=== PATIENT | male | born 1940 | race Caucasian/White ===

== ENCOUNTER 2017-11-09 09:59 | Emergency (ER) | payer MEDICARE, BC ==
--- NOTE | 2017-11-09 10:40 | ERPHSYRPT ---
- History of Present Illness Time Seen by Provider: 11/09/17 10:33 Source: patient, family Exam Limitations: no limitations Patient Subjective Stated Complaint: pt here for pain to right rib area that radiates to right mid back off and on for a week now, no injury noted, Triage Nursing Assessment: alert, resp easy. moaning in pain. skin w/d/p, edema to lower legs Physician History: The patient is a 77-year-old male with his complaining of right sided chest pain that wraps around to his right back for several weeks. Over the last week the pain has become more severe. Yesterday and today the pain became worse than ever. The pain is at the lower rib cage on the right side in the front and wraps around to his back. It hurts when he coughs or sneezes. It hurts with deep breathing. It hurts with moving his trunk. He does not recall any trauma to the ribs. He denies cough. His past medical history is significant for CAD, hypertension, PE, diabetes, GERD, hypothyroidism, CABG, and high cholesterol. He has been taking Tylenol 4 times a day without relief. Timing/Duration: week(s) (several), intermittent, gradual onset, worse Severity: severe Modifying Factors: Improves With: nothing Associated Symptoms: denies symptoms Allergies/Adverse Reactions: nadolol [From Corgard] Allergy (Mild, Verified 11/09/17 10:18) hydromorphone HCl [From Dilaudid] Allergy (Verified 11/09/17 10:18) Home Medications: Amlodipine Besylate 10 mg [Norvasc 10 MG] 5 mg PO HS 08/15/15 [History] Carisoprodol [Soma] 250 mg PO DAILY 08/15/15 [History] Famotidine 20 mg [Pepcid 20 MG] 40 mg PO BID 08/15/15 [History] Glipizide 10 mg [Glucotrol 10 MG] 10 mg PO BID 08/15/15 [History] Hydralazine HCl 50 mg PO BID 08/15/15 [History] Insulin Degludec [Tresiba Flextouch U-100] 10 units SQ HS 08/15/15 [History] Levothyroxine Sodium 75 Mcg [Synthroid 75 Mcg] 75 mcg PO DAILY 08/15/15 [ History] Metoprolol Tartrate 25 mg [Lopressor 25MG Tab] 25 mg PO DAILY 08/15/15 [ History] Omeprazole [Prilosec] 40 mg PO DAILY 08/15/15 [History] Ranolazine 500 MG [Ranexa 500 MG] 500 mg PO DAILY 08/15/15 [History] Rivaroxaban [Xarelto] 20 mg PO DAILY 08/15/15 [History] Sennosides/Docusate Sodium [Senna-Docusate Sodium Tablet] 1 tab PO HS 08/15/15 [ History] Simvastatin 20 mg PO HS 08/15/15 [History] Sitagliptin Phosphate [Januvia] 50 mg PO BID 08/15/15 [History] Tamsulosin HCl [Flomax] 1 tab PO HS 08/15/15 [History] Valsartan [Diovan] 320 mg PO LUNCH 08/15/15 [History] Hx Tetanus, Diphtheria Vaccination/Date Given: Yes Hx Influenza Vaccination/Date Given: Yes Hx Pneumococcal Vaccination/Date Given: Yes Immunizations Up to Date: Yes - Review of Systems Constitutional: No Fever, No Chills Eyes: No Symptoms Ears, Nose, & Throat: No Symptoms Respiratory: No Cough, No Dyspnea Cardiac: Chest Pain (right rib pain), No Edema, No Syncope Abdominal/Gastrointestinal: No Abdominal Pain, No Nausea, No Vomiting, No Diarrhea Genitourinary Symptoms: No Dysuria Musculoskeletal: No Back Pain, No Neck Pain Skin: No Rash Neurological: No Dizziness, No Focal Weakness, No Sensory Changes Psychological: No Symptoms Endocrine: No Symptoms Hematologic/Lymphatic: No Symptoms Immunological/Allergic: No Symptoms All Other Systems: Reviewed and Negative - Past Medical History Pertinent Past Medical History: Yes Neurological History: No Pertinent History ENT History: No Pertinent History Cardiac History: Coronary Artery Disease, Hypertension Respiratory History: CHF, COPD Endocrine Medical History: Diabetes Type II Musculoskeletal History: Arthritis GI Medical History: No Pertinent History History: No Pertinent History Psycho-Social History: No Pertinent History Male Reproductive Disorders: Prostate Problems Other Medical History: pt states history of renal failure - Past Surgical History Past Surgical History: Yes Neuro Surgical History: No Pertinent History Cardiac: CABG Respiratory: No Pertinent History Gastrointestinal: Appendectomy, Cholecystectomy Genitourinary: No Pertinent History Musculoskeletal: Orthopedic Surgery Male Surgical History: No Pertinent History Other Surgical History: stents in past as stated per pt - Social History Smoking Status: Former smoker Exposure to second hand smoke: No Drug Use: none Patient Lives Alone: Yes - Nursing Vital Signs Nursing Vital Signs: Initial Vital Signs Temperature 97.8 F 11/09/17 10:00 Pulse Rate 69 11/09/17 10:00 Respiratory Rate 16 11/09/17 10:00 Blood Pressure 209/86 11/09/17 10:00 O2 Sat by Pulse Oximetry 96 11/09/17 10:00 Pain Scale Pain Intensity 9 - Physical Exam General Appearance: mild distress, obese Eye Exam: PERRL/EOMI, eyes nml inspection Ears, Nose, Throat Exam: normal ENT inspection, TMs normal, pharynx normal, moist mucous membranes Neck Exam: normal inspection, non-tender, supple, full range of motion Respiratory Exam: chest tenderness (tenderness to palpation of right anterior inferior, right lateral inferior, and posterior inferior ribs. No bruising. No skin lesions.) Cardiovascular Exam: regular rate/rhythm, normal heart sounds, normal peripheral pulses Gastrointestinal/Abdomen Exam: soft, normal bowel sounds, No tenderness, No mass Rectal Exam: not done Back Exam: normal inspection, normal range of motion, No CVA tenderness, No vertebral tenderness Extremity Exam: normal inspection, normal range of motion, pelvis stable Neurologic Exam: alert, oriented x 3, cooperative, normal mood/affect, nml cerebellar function, nml station & gait, sensation nml, No motor deficits Skin Exam: normal color, warm, dry, No rash Lymphatic Exam: No adenopathy SpO2 Interpretation: normal SpO2: 96 Oxygen Delivery: Room Air - Course EKG Interpreted by Me: RATE, Sinus Rhythm, NORMAL AXIS, NORMAL INTERVALS, NORMAL QRS, NORMAL ST-T - Radiology Exams Chest X-ray Interpretation: Interpreted by me, Negative, No Pneumothorax, Other ( granulomatous disease.) Right Ribs X-ray Interpretation: Interpreted by me, Negative, No Fracture, No Pneumothorax Ordered Tests: Active Orders 24 hr Category Date Time Status EKG-ER Only STAT Care 11/09/17 10:40 Active IV Insertion STAT Care 11/09/17 10:40 Active CHEST 2 VIEWS (PA AND LAT) Stat Exams 11/09/17 11:18 Taken RIBS UNILATERAL Stat Exams 11/09/17 10:42 Taken CBC W DIFF Stat Lab 11/09/17 10:30 Completed CMP Stat Lab 11/09/17 10:30 Completed Manual Differential NC Stat Lab 11/09/17 10:30 Completed TROPONIN Q3H Lab 11/09/17 10:30 Completed TROPONIN Q3H Lab 11/09/17 13:45 Ordered TROPONIN Q3H Lab 11/09/17 16:45 Ordered TROPONIN Q3H Lab 11/09/17 19:45 Ordered TROPONIN Q3H Lab 11/09/17 22:45 Ordered Medication Summary Discontinued Medications Generic Name Dose Route Start Last Admin Trade Name Dmitriq PRN Reason Stop Dose Admin Cyclobenzaprine HCl 10 mg 11/09/17 10:41 11/09/17 11:05 Cyclobenzaprine 10 Mg PO 11/09/17 10:42 10 mg STAT ONE Administration Cyclobenzaprine HCl Confirm 11/09/17 11:03 Cyclobenzaprine 10 Mg Administered 11/09/17 11:04 Dose 10 mg .ROUTE .STK-MED ONE Lab/Rad Data: Laboratory Result Diagrams 11/09/17 10:30 11/09/17 10:30 Laboratory Results 11/09/17 11/09/17 11/09/17 Range/Units 10:30 10:30 10:30 WBC 9.3 (4.0-10.5) K/mm3 RBC 4.76 (4.1-5.6) M/mm3 Hgb 14.7 (12.5-18.0) gm/dl Hct 44.8 (42-50) % MCV 94.1 (78-100) fl MCH 30.9 (26-32) pg MCHC 32.8 (32-36) g/dl RDW 14.3 H (11.5-14.0) % Plt Count 188 (150-450) K/mm3 MPV 11.7 H (6-9.5) fl Absolute Granulocytes 6.31 (1.4-6.9) Segmented Neutrophils 79 H (36.-66.) % Lymphocytes (Manual) 17 L (24-44) % Monocytes (Manual) 4 (0.0-12.0) % Platelet Estimate NORMAL (NORMAL) RBC Morphology NORMAL Sodium 142 (137-145) mmol/L Potassium 4.7 (3.5-5.1) mmol/L Chloride 103 (98-107) mmol/L Carbon Dioxide 30 (22-30) mmol/L Anion Gap 12.9 (5-15) MEQ/L BUN 25 H (9-20) mg/dL Creatinine 1.41 H (0.66-1.25) mg/dL Estimated GFR 51.9 ML/MIN Glucose 175 H (74-106) mg/dL Calcium 9.3 (8.4-10.2) mg/dL Total Bilirubin 0.30 (0.2-1.3) mg/dL AST 20 (17-59) U/L ALT 23 (0-50) U/L Alkaline Phosphatase 83 (38-126) U/L Troponin I < 0.012 (0.000-0.034) ng/mL Serum Total Protein 7.0 (6.3-8.2) g/dL Albumin 3.9 (3.5-5.0) g/dL - Progress Progress: unchanged Counseled pt/family regarding: lab results, diagnosis, rad results - Departure Time of Disposition: 12:06 Departure Disposition: Home Clinical Impression: Rib pain on right side Condition: Stable Critical Care Time: No Referrals: QASIM DE LA PAZ MD [Primary Care Provider] - Additional Instructions: You have pain along the your right ribs that is musculoskeletal. You were given Flexeril 10 mg in the ER. Continue with Flexeril 10 mg every 8 hours as needed. Follow-up with your primary medical doctor as needed. Prescriptions: Cyclobenzaprine HCl [Flexeril] 10 mg PO Q8H PRN PRN #10 tablet PRN Reason: Pain Hydrocodone/APAP 5/325 [Benezett 5/325 mg] 1 each PO Q4-6HPRN PRN #10 tablet MDD 6 PRN Reason: Pain
[2017-11-09] MEDS ORDERED: Cyclobenzaprine 10 MG PO ONE (10:41)
[2017-11-09 11:01] LABS: Granulocyte Absolute (ANC) 6.31 (1.4-6.9); Hematocrit 44.8 % (42-50); Hemoglobin 14.7 gm/dl (12.5-18.0); Mean Cell Volume 94.1 fl (78-100); Mean Corpuscular Hemoglobin 30.9 pg (26-32); Mean Corpuscular Hgb Concent. 32.8 g/dl (32-36); Mean Platelet Volume 11.7 fl (6-9.5); Platelet Count 188 K/mm3 (150-450); Red Blood Count 4.76 M/mm3 (4.1-5.6); Red Cell Distribution Width 14.3 % (11.5-14.0); White Blood Count 9.3 K/mm3 (4.0-10.5)
[2017-11-09] MEDS ORDERED: Cyclobenzaprine 10 MG ONE (11:03)
[2017-11-09 11:04] LABS: ALBUMIN 3.9 g/dL (3.5-5.0); ANION GAP 12.9 MEQ/L (5-15); BILIRUBIN,TOTAL 0.3 mg/dL (0.2-1.3); Calcium 9.3 mg/dL (8.4-10.2); Creatinine 1 1.41 mg/dL (0.66-1.25); Potassium 4.7 mmol/L (3.5-5.1)
[2017-11-09 11:39] LABS: Lymphocytes 17 % (24-44); Monocyte 4 % (0.0-12.0); Neutrophils 79 % (36.-66.); Platelet Estimate NORMAL (NORMAL); Total Cells Counted 100
[2017-11-09 12:33] VITALS: BP 154/67; PULSE 55; O2SAT 94
--- NOTE | 2017-11-09 19:59 | XRAY ---
Indication: Right upper rib pain. Comparison: August 15, 2015. PA/lateral chest again demonstrates scattered calcified granulomas. No focal infiltrate, consolidation, or large effusion. Heart is not enlarged. Bony thorax intact again with mild osteopenia, degenerative changes, and sternotomy wires. Impression: Stable nonacute chest with chronic features.
--- NOTE | 2017-11-09 20:04 | XRAY ---
Indication: Right upper rib pain 3 weeks. No known injury. Comparison: None 2 views of the right ribs demonstrates scattered pulmonary calcified granulomas, sternotomy wires, mild osteopenia, and mild bony degenerative changes. No other bony, articular, or soft tissue abnormalities.
== END 2017-11-09 12:32 | disposition home or self-care (01) ==
LOC: ED 09:59
DX: R07.81 Pleurodynia (principal); I50.9 Heart failure, unspecified; E11.9 Type 2 diabetes mellitus without complications; J44.9 Chronic obstructive pulmonary disease, unspecified; I25.810 Atherosclerosis of coronary artery bypass graft(s) without angina pectoris; M19.90 Unspecified osteoarthritis, unspecified site; Z79.01 Long term (current) use of anticoagulants; Z79.899 Other long term (current) drug therapy; I10 Essential (primary) hypertension
CPT/HCPCS: 36000; 36415; 71046; 71100; 80053; 84484; 85025; 93005; 93041; 99284; A9270-GY

== ENCOUNTER 2018-07-02 14:30 | Observation (INO) | payer MEDICARE, BC ==
[2018-07-02] MEDS ORDERED: NovoLOG Insulin SQ PRN (16:53)
[2018-07-02] MEDS ORDERED: SOMA 350 MG PO PRN (17:04)
[2018-07-02 17:08] LABS: Hematocrit 50.9 % (42-50); Mean Cell Volume 94.6 fl (78-100); Mean Corpuscular Hemoglobin 29.7 pg (26-32); Mean Corpuscular Hgb Concent. 31.4 g/dl (32-36); Mean Platelet Volume 11.8 fl (6-9.5); Platelet Count 203 K/mm3 (150-450); Red Blood Count 5.38 M/mm3 (4.1-5.6); Red Cell Distribution Width 14.9 % (11.5-14.0); White Blood Count 9.1 K/mm3 (4.0-10.5)
[2018-07-02 17:13] LABS: ALBUMIN 4.2 g/dL (3.5-5.0); ANION GAP 13.6 MEQ/L (5-15); BILIRUBIN,TOTAL 0.5 mg/dL (0.2-1.3); Calcium 9.8 mg/dL (8.4-10.2); Creatinine 1 1.42 mg/dL (0.66-1.25); Potassium 4.6 mmol/L (3.5-5.1); Total Protein 7.9 g/dL (6.3-8.2)
[2018-07-02] MEDS ORDERED: ULTRAM 50 MG PO PRN (17:15)
[2018-07-02] MEDS ORDERED: PROVENTIL 2.5 MG/3 ML NEB IH PRN (17:15)
[2018-07-02] MEDS: Glucotrol 5 MG PO SCH (17:42)
[2018-07-02] MEDS: BUMEX 1 MG IV SCH (17:42)
[2018-07-02] MEDS: Pepcid 20 MG PO SCH (21:21)
[2018-07-02] MEDS: COREG 12.5 MG PO SCH (21:22)
[2018-07-02] MEDS: Apresoline 25 MG TABLET PO SCH (21:22)
[2018-07-02] MEDS: Januvia 50 MG PO SCH (21:22)
[2018-07-02] MEDS: Senokot-S Tablet PO SCH (21:23)
[2018-07-02] MEDS ORDERED: ZOCOR 20MG PO SCH (22:00)
[2018-07-02] MEDS ORDERED: XARELTO 10 MG TABLET PO SCH (22:00)
[2018-07-02] MEDS ORDERED: Lantus Insulin SQ SCH (22:00)
[2018-07-02] MEDS ORDERED: NON-FORMULARY ITEM (Carvedilol [Coreg] 25 MG) PO SCH (22:00)
[2018-07-02] MEDS ORDERED: Flomax 0.4 MG PO SCH (22:00)
[2018-07-02] MEDS ORDERED: NON-FORMULARY ITEM (Atorvastatin Calcium [Lipitor] 20 MG) PO SCH (22:00)
[2018-07-03] MEDS: BUMEX 1 MG IV SCH (05:55)
[2018-07-03 06:16] LABS: Risk Ratio 3.1
--- NOTE | 2018-07-03 08:37 | XRAY ---
Indication: CHF. Comparison: November 09, 2017. PA/lateral chest again demonstrates scattered calcified granulomas bilaterally. No focal infiltrate, consolidation, or large effusion. Heart is not enlarged again with CABG surgery. Bony thorax intact again with mild osteopenia and degenerative changes. Impression: Stable nonacute chest with chronic features.
[2018-07-03] MEDS ORDERED: SYNTHROID 75 MCG PO SCH (10:00)
[2018-07-03] MEDS: Glucotrol 5 MG PO SCH (10:00)
[2018-07-03] MEDS: Apresoline 25 MG TABLET PO SCH (10:00)
[2018-07-03] MEDS: COREG 12.5 MG PO SCH (10:01)
[2018-07-03] MEDS: Januvia 50 MG PO SCH (10:01)
[2018-07-03] MEDS: Pepcid 20 MG PO SCH (10:01)
[2018-07-03] MEDS: Senokot-S Tablet PO SCH (10:02)
[2018-07-03 12:40] VITALS: BP 113/64; PULSE 118; O2SAT 92
--- NOTE | 2018-07-03 13:52 | PCM.SSS ---
History of Present Illness - Chief Complaint Chief Complaint: worsening shortness of breath for 1 week History of Present Illness: is a 78 year old male. see History and physical from office - Review of Systems Constitutional: No Fever, No Chills Eyes: No Symptoms Ears, Nose, & Throat: No Symptoms Respiratory: Orthopnea, Short Of Breath, Wheezing, No Cough Cardiac: No Chest Pain, No Edema, No Syncope Abdominal/Gastrointestinal: No Abdominal Pain, No Nausea, No Vomiting, No Diarrhea Genitourinary Symptoms: No Dysuria Musculoskeletal: No Back Pain, No Neck Pain Skin: No Rash Neurological: No Dizziness, No Focal Weakness, No Sensory Changes Psychological: No Symptoms Endocrine: No Symptoms Hematologic/Lymphatic: No Symptoms Immunological/Allergic: No Symptoms Medications & Allergies Home Medications: Home Medication List Famotidine 20 mg [Pepcid 20 MG] 40 mg PO BID 08/15/15 [History Confirmed 07/02/18] Glipizide 10 mg [Glucotrol 10 MG] 10 mg PO BID 08/15/15 [History Confirmed 07/02/18] Hydralazine HCl 50 mg PO BID 08/15/15 [History Confirmed 07/02/18] Levothyroxine Sodium 75 Mcg [Synthroid 75 Mcg] 75 mcg PO DAILY 08/15/15 [ History Confirmed 07/02/18] Rivaroxaban [Xarelto] 20 mg PO HS 08/15/15 [History Confirmed 07/02/18] Sennosides/Docusate Sodium [Senna-Docusate Sodium Tablet] 8.5 mg PO BID [History Confirmed 07/02/18] Sitagliptin Phosphate [Januvia] 50 mg PO BID 08/15/15 [History Confirmed ] Tamsulosin HCl [Flomax] 1 tab PO HS 08/15/15 [History Confirmed 07/02/18] Atorvastatin Calcium [Lipitor] 20 mg PO HS 07/02/18 [History Confirmed 07/02/18] Bumetanide [Bumex] 2 mg PO DAILY PRN PRN 07/02/18 [History Confirmed 07/02/18] Carisoprodol 350 mg PO TID PRN PRN 07/02/18 [History Confirmed 07/02/18] Carvedilol [Coreg] 25 mg PO BID 07/02/18 [History Confirmed 07/02/18] Insulin Glargine [Lantus Insulin] 55 unit SQ HS 07/02/18 [History Confirmed 07/02/18] Tramadol HCl [Ultram] 50 mg PO BID PRN 07/02/18 [History Confirmed 07/02/18] Allergies/Adverse Reactions: Allergies Allergy/AdvReac Type Severity Reaction Status Date / Time nadolol [From Corgard] Allergy Mild Verified 11/09/17 10:18 hydromorphone HCl Allergy Verified 11/09/17 10:18 [From Dilaudid] metoclopramide [From Reglan] AdvReac Verified 07/02/18 15:16 - Past Medical History Past Medical History: Yes Neurological History: No Pertinent History ENT History: No Pertinent History, Cataracts Cardiac History: Arrhythmia, Congestive Heart Failure, Coronary Artery Disease, Hypertension, Myocardial Infarction ([place]) Respiratory History: CHF, COPD Endocrine Medical History: Diabetes Type II Musculoskelatal History: Arthritis GI Medical History: No Pertinent History History: No Pertinent History Pyscho-Social History: No Pertinent History Male Reproductive Disorders: Prostate Problems Comment: pt states history of renal failure - Past Surgical History Past Surgical History: Yes Neuro Surgical History: No Pertinent History Cardiac History: CABG Respiratory Surgery: No Pertinent History GI Surgical History: Appendectomy, Cholecystectomy Genitourinary Surgical Hx: No Pertinent History Musculskeletal Surgical Hx: Orthopedic Surgery Male Surgical History: No Pertinent History Other Surgical History: stents in past as stated per pt, CABG - Social History Smoking Status: Former smoker Exposure to second hand smoke: No Alcohol: None Drug Use: none - Physical Exam Vital Signs: Vital Signs - 24 hr Temp Pulse Resp BP Pulse Ox 07/03/18 12:00 98.1 F 118 H 22 113/64 92 L 07/03/18 08:00 97.8 F 110 H 20 137/91 96 07/03/18 06:59 115 H 18 95 07/03/18 03:50 97.8 F 115 H 19 135/63 96 07/03/18 00:49 98.4 F 114 H 17 176/90 96 07/02/18 23:00 98.4 F 114 H 17 176/90 96 07/02/18 21:00 97 07/02/18 19:00 98.3 F 118 H 21 136/89 91 L 07/02/18 18:34 117 H 18 91 L 07/02/18 17:53 95 07/02/18 15:13 98.4 F 121 H 20 145/96 93 L 07/02/18 14:57 98.4 F 121 H 20 145/96 93 L Oxygen-Last 24 hours O2 Percentage 3 Liters = 32% O2 Percentage 3 Liters = 32% O2 Percentage 3 Liters = 32% O2 Percentage 3 Liters = 32% General Appearance: no apparent distress, alert Neurologic Exam: alert, oriented x 3, cooperative, normal mood/affect, nml cerebellar function, nml station & gait, sensation nml, No motor deficits Eye Exam: PERRL/EOMI, eyes nml inspection Ears, Nose, Throat Exam: normal ENT inspection, TMs normal, pharynx normal, moist mucous membranes Neck Exam: normal inspection, non-tender, supple, full range of motion Respiratory Exam: diminished breath sounds, crackles/rales, rhonchi, No respiratory distress Cardiovascular Exam: regular rate/rhythm, normal heart sounds, normal peripheral pulses Gastrointestinal/Abdomen Exam: soft, normal bowel sounds, No tenderness, No mass Back Exam: normal inspection, normal range of motion, No CVA tenderness, No vertebral tenderness Extremity Exam: normal inspection, normal range of motion, pelvis stable Skin Exam: normal color, warm, dry, No rash Lymphatic Exam: No adenopathy Results - Labs Lab/Micro Results: Accuchecks Date 07/03/18 Date 07/03/18 Date 07/02/18 Date 07/02/18 Time 11:30 Time 07:30 Time 21:00 Time 16:30 Accucheck Value: 152 Accucheck Value: 131 Accucheck Value: 174 Accucheck Value: 145 Lab Results-Last 24 Hours 07/02/18 07/02/18 07/02/18 Range/Units 15:40 15:40 15:40 WBC 9.1 (4.0-10.5) K/mm3 RBC 5.38 (4.1-5.6) M/mm3 Hgb 16.0 (12.5-18.0) gm/dl Hct 50.9 H (42-50) % MCV 94.6 (78-100) fl MCH 29.7 (26-32) pg MCHC 31.4 L (32-36) g/dl RDW 14.9 H (11.5-14.0) % Plt Count 203 (150-450) K/mm3 MPV 11.8 H (6-9.5) fl Sodium 142 (137-145) mmol/L Potassium 4.6 (3.5-5.1) mmol/L Chloride 101 (98-107) mmol/L Carbon Dioxide 32 H (22-30) mmol/L Anion Gap 13.6 (5-15) MEQ/L BUN 24 H (9-20) mg/dL Creatinine 1.42 H (0.66-1.25) mg/dL Estimated GFR 51.4 ML/MIN Glucose 159 H (74-106) mg/dL Hemoglobin A1c (4.5-6.0) % Calcium 9.8 (8.4-10.2) mg/dL Total Bilirubin 0.50 (0.2-1.3) mg/dL AST 23 (17-59) U/L ALT 25 (0-50) U/L Alkaline Phosphatase 77 (38-126) U/L Troponin I (0.000-0.034) ng/mL NT-Pro-B Natriuret Pep 1490 (0-1800) pg/mL Serum Total Protein 7.9 (6.3-8.2) g/dL Albumin 4.2 (3.5-5.0) g/dL Triglycerides (30-150) mg/dL Cholesterol (50-200) mg/dL LDL Cholesterol (30-100) mg/dL HDL Cholesterol (40-60) mg/dL Heart Disease Risk Ratio 07/02/18 07/02/18 07/03/18 Range/Units 15:40 16:00 05:12 WBC (4.0-10.5) K/mm3 RBC (4.1-5.6) M/mm3 Hgb (12.5-18.0) gm/dl Hct (42-50) % MCV (78-100) fl MCH (26-32) pg MCHC (32-36) g/dl RDW (11.5-14.0) % Plt Count (150-450) K/mm3 MPV (6-9.5) fl Sodium (137-145) mmol/L Potassium (3.5-5.1) mmol/L Chloride (98-107) mmol/L Carbon Dioxide (22-30) mmol/L Anion Gap (5-15) MEQ/L BUN (9-20) mg/dL Creatinine (0.66-1.25) mg/dL Estimated GFR ML/MIN Glucose (74-106) mg/dL Hemoglobin A1c 7.12 H (4.5-6.0) % Calcium (8.4-10.2) mg/dL Total Bilirubin (0.2-1.3) mg/dL AST (17-59) U/L ALT (0-50) U/L Alkaline Phosphatase (38-126) U/L Troponin I < 0.012 (0.000-0.034) ng/mL NT-Pro-B Natriuret Pep (0-1800) pg/mL Serum Total Protein (6.3-8.2) g/dL Albumin (3.5-5.0) g/dL Triglycerides 149 (30-150) mg/dL Cholesterol 125 (50-200) mg/dL LDL Cholesterol 67 (30-100) mg/dL HDL Cholesterol 40 (40-60) mg/dL Heart Disease Risk Ratio 3.1 Accuchecks Date 07/03/18 Date 07/03/18 Date 07/02/18 Date 07/02/18 Time 11:30 Time 07:30 Time 21:00 Time 16:30 Accucheck Value: 152 Accucheck Value: 131 Accucheck Value: 174 Accucheck Value: 145 - Radiology Impressions Radiology Exams & Impressions: Radiology Procedures Category Date Time Status CHEST 2 VIEWS (PA AND LAT) Routine Exams 07/02/18 17:15 Completed CHEST 2 VIEWS (PA AND LAT) Urgent Exams 07/03/18 17:00 Ordered ECHO W/2D AND DOPPLER [US] Routine Exams 07/03/18 07:00 Taken - Other Procedures and Tests Respiratory Therapy 07/02/18 17:53 Oxygen NASAL CANNULA 3 lpm Respiratory Therapy Assessment DAILY 07/02/18 20:43 Peak Expiratory Flow Rate ONCE Assessment/Plan (1) COPD (chronic obstructive pulmonary disease) with chronic bronchitis Current Visit: Yes Status: Acute Code(s): J44.9 - CHRONIC OBSTRUCTIVE PULMONARY DISEASE, UNSPECIFIED (2) Cor pulmonale (chronic) Current Visit: Yes Status: Acute Code(s): I27.81 - COR PULMONALE (CHRONIC) (3) CHF (congestive heart failure), NYHA class IV Current Visit: Yes Status: Acute Code(s): I50.9 - HEART FAILURE, UNSPECIFIED (4) CAD (coronary artery disease) Current Visit: No Status: Acute Qualifiers: Coronary Disease-Associated Artery/Lesion type: enterprise artery [place] vs. transplanted heart: enterprise heart Associated angina: with stable angina Qualified Code(s): I25.119 - Atherosclerotic heart disease of enterprise coronary artery with unspecified angina pectoris Code(s): I25.10 - ATHSCL HEART DISEASE OF [place] CORONARY ARTERY W/O [facility] Summary - Hospital Course Hospital Course: Last Vital Signs Temp 98.1 F 07/03/18 12:00 Pulse 118 H 07/03/18 12:00 Resp 22 07/03/18 12:00 BP 113/64 07/03/18 12:00 Pulse Ox 92 L 07/03/18 12:00 Allergies nadolol [From Corgard] Allergy (Mild, Verified 11/09/17 10:18) hydromorphone HCl [From Dilaudid] Allergy (Verified 11/09/17 10:18) metoclopramide [From Reglan] Adverse Reaction (Verified 07/02/18 15:16) Active Medications Albuterol Sulfate (Proventil 2.5 Mg/3 Ml Neb) 2.5 mg IH Q4H PRN PRN PRN Reason: SHORTNESS OF BREATH/WHEEZING Stop: 08/01/18 17:14 Last Admin: 07/02/18 18:33 Dose: 2.5 mg Bumetanide (Bumex 1 Mg) 1 mg IV Q12H FABIANA Stop: 08/01/18 16:59 Last Admin: 07/03/18 05:55 Dose: 1 mg Carisoprodol (Soma 350 Mg) 350 mg PO TID PRN PRN PRN Reason: PAIN Stop: 08/01/18 17:03 Carvedilol (Coreg 12.5 Mg) 25 mg PO BID FABIANA Stop: 08/01/18 21:59 Last Admin: 07/03/18 10:01 Dose: 25 mg Famotidine (Pepcid 20 Mg) 40 mg PO BID FABIANA Stop: 08/01/18 21:59 Last Admin: 07/03/18 10:01 Dose: 40 mg Glipizide (Glucotrol 5 Mg) 10 mg PO BIDWMEALS [facility] [place] Stop: 08/01/18 17:29 Last Admin: 07/03/18 10:00 Dose: 10 mg Hydralazine HCl (Apresoline 25 Mg Tablet) 50 mg PO BID FABIANA Stop: 08/01/18 21:59 Last Admin: 07/03/18 10:00 Dose: 50 mg Insulin Aspart (Novolog Insulin) 0 unit SQ UD PRN PRN Reason: HYPERGLYCEMIA Stop: 08/01/18 16:52 Insulin Glargine (Lantus Insulin) 55 unit SQ HS [facility] [place] Stop: 08/01/18 21:59 Last Admin: 07/02/18 21:23 Dose: 55 unit Levothyroxine Sodium (Synthroid 75 Mcg) 75 mcg PO DAILY [facility] [place] Stop: 08/02/18 09:59 Last Admin: 07/03/18 10:02 Dose: 75 mcg Rivaroxaban (Xarelto 10 Mg Tablet) 20 mg PO HS [facility] [place] Stop: 08/01/18 21:59 Last Admin: 07/02/18 21:21 Dose: 20 mg Senna/Docusate Sodium (Senokot-S Tablet) 1 udtab PO BID [facility] [place] Stop: 08/01/18 21:59 Last Admin: 07/03/18 10:02 Dose: 1 udtab Simvastatin (Zocor 20mg) 20 mg PO HS [facility] [place] Stop: 08/01/18 21:59 Last Admin: 07/02/18 21:22 Dose: 20 mg Sitagliptin Phosphate (Januvia 50 Mg) 50 mg PO BID [facility] [place] Stop: 08/01/18 21:59 Last Admin: 07/03/18 10:01 Dose: 50 mg Tamsulosin HCl (Flomax 0.4 Mg) 0.4 mg PO HS [facility] [place] Stop: 08/01/18 21:59 Last Admin: 07/02/18 21:20 Dose: 0.4 mg Tramadol HCl (Ultram 50 Mg) 50 mg PO BID PRN PRN PRN Reason: PAIN Stop: 08/01/18 17:14 Intake & Output 07/03/18 07/04/18 11:59 11:59 Intake Total 1080 320 Output Total 1500 350 Balance -420 -30 Weight 175.5 kg Orders 07/02/18 14:46 [address] in Observation ROUTINE 07/02/18 16:17 Cardio-Pulmonary Rehab .as ordered Manager Software Development/Discharge Plan 07/02/18 16:53 Insulin Aspart [NovoLOG Insulin] See Dose Instructions SQ UD PRN 07/02/18 16:55 Up With Assistance TOLERATED Implement CHF Pathway ROUTINE Telemetry Q6H Weight,Daily 0600 Nutritional Consult 07/02/18 17:00 Bumetanide 1 mg [Bumex 1 mg] 1 mg IV Q12H 07/02/18 17:04 Carisoprodol 350 mg [Soma 350 mg] 350 mg PO TID PRN PRN 07/02/18 17:05 ACCUCHECK [Accucheck] ACHS 07/02/18 17:15 Albuterol 2.5 mg/3 ml Neb [Proventil 2.5 mg/3 ml Neb] 2.5 mg IH Q4H PRN PRN Tramadol HCl 50 mg [Ultram 50 mg] 50 mg PO BID PRN PRN 07/02/18 17:30 Glipizide 5 mg [Glucotrol 5 MG] 10 mg PO BIDWMEALS 07/02/18 17:53 Oxygen NASAL CANNULA 3 lpm Respiratory Therapy Assessment DAILY 07/02/18 20:43 Peak Expiratory Flow Rate ONCE 07/02/18 22:00 Carvedilol 12.5 mg [Coreg 12.5 mg] 25 mg PO BID Famotidine 20 mg [Pepcid 20 MG] 40 mg PO BID HydrALAzine HCL 25 MG TAB [Apresoline 25 MG TABLET] 50 mg PO BID Insulin Glargine [Lantus Insulin] 55 unit SQ HS Rivaroxaban 10 mg Tablet [Xarelto 10 mg Tablet] 20 mg PO HS Senna/Docusate Sodium Tab [Senokot-S Tablet] 1 udtab PO BID Simvastatin 20Mg [Zocor 20Mg] 20 mg PO HS Sitagliptin Phosphate 50 MG [Januvia 50 MG] 50 mg PO BID Tamsulosin HCl 0.4 mg [Flomax 0.4 MG] 0.4 mg PO HS 07/02/18 Dinner Cardiac Diet 07/03/18 07:00 ECHO W/2D AND DOPPLER [US] Routine 07/03/18 07:06 Pulse Oximetry .continuos 07/03/18 10:00 Levothyroxine Sodium 75 Mcg [Synthroid 75 Mcg] 75 mcg PO DAILY 07/03/18 17:00 CHEST 2 VIEWS (PA AND LAT) Urgent Lab Tests 07/02/18 07/02/18 07/02/18 15:40 15:40 15:40 WBC 9.1 RBC 5.38 Hgb 16.0 Hct 50.9 H MCV 94.6 MCH 29.7 MCHC 31.4 L RDW 14.9 H Plt Count 203 MPV 11.8 H Sodium 142 Potassium 4.6 Chloride 101 Carbon Dioxide 32 H Anion Gap 13.6 BUN 24 H Creatinine 1.42 H Estimated GFR 51.4 Glucose 159 H Hemoglobin A1c Calcium 9.8 Total Bilirubin 0.50 AST 23 ALT 25 Alkaline Phosphatase 77 Troponin I NT-Pro-B Natriuret Pep 1490 Serum Total Protein 7.9 Albumin 4.2 Triglycerides Cholesterol LDL Cholesterol HDL Cholesterol Heart Disease Risk Ratio 07/02/18 07/02/18 07/03/18 15:40 16:00 05:12 WBC RBC Hgb Hct MCV MCH MCHC RDW Plt Count MPV Sodium Potassium Chloride Carbon Dioxide Anion Gap BUN Creatinine Estimated GFR Glucose Hemoglobin A1c 7.12 H Calcium Total Bilirubin AST ALT Alkaline Phosphatase Troponin I < 0.012 NT-Pro-B Natriuret Pep Serum Total Protein Albumin Triglycerides 149 Cholesterol 125 LDL Cholesterol 67 HDL Cholesterol 40 Heart Disease Risk Ratio 3.1 - Vitals & Intake/Output Vital Signs: Vital Signs Temperature 98.1 F 07/03/18 12:00 Pulse Rate 118 H 07/03/18 12:00 Respiratory Rate 22 07/03/18 12:00 Blood Pressure 113/64 07/03/18 12:00 O2 Sat by Pulse Oximetry 92 L 07/03/18 12:00 Oxygen-Last Documented O2 Percentage 3 Liters = 32% Intake & Output: Intake & Output 07/01/18 07/02/18 07/03/18 03/16/19 11:59 11:59 11:59 11:59 Intake Total 1080 320 Output Total 1500 350 Balance -420 -30 Weight 175.5 kg - Lab Result Diagrams: 07/02/18 15:40 07/02/18 15:40 Lab Results-Last 24 Hrs: Accuchecks Date 07/03/18 Date 07/03/18 Date 07/02/18 Date 07/02/18 Time 11:30 Time 07:30 Time 21:00 Time 16:30 Accucheck Value: 152 Accucheck Value: 131 Accucheck Value: 174 Accucheck Value: 145 Lab Results-Last 24 Hours 07/02/18 07/02/18 07/02/18 Range/Units 15:40 15:40 15:40 WBC 9.1 (4.0-10.5) K/mm3 RBC 5.38 (4.1-5.6) M/mm3 Hgb 16.0 (12.5-18.0) gm/dl Hct 50.9 H (42-50) % MCV 94.6 (78-100) fl MCH 29.7 (26-32) pg MCHC 31.4 L (32-36) g/dl RDW 14.9 H (11.5-14.0) % Plt Count 203 (150-450) K/mm3 MPV 11.8 H (6-9.5) fl Sodium 142 (137-145) mmol/L Potassium 4.6 (3.5-5.1) mmol/L Chloride 101 (98-107) mmol/L Carbon Dioxide 32 H (22-30) mmol/L Anion Gap 13.6 (5-15) MEQ/L BUN 24 H (9-20) mg/dL Creatinine 1.42 H (0.66-1.25) mg/dL Estimated GFR 51.4 ML/MIN Glucose 159 H (74-106) mg/dL Hemoglobin A1c (4.5-6.0) % Calcium 9.8 (8.4-10.2) mg/dL Total Bilirubin 0.50 (0.2-1.3) mg/dL AST 23 (17-59) U/L ALT 25 (0-50) U/L Alkaline Phosphatase 77 (38-126) U/L Troponin I (0.000-0.034) ng/mL NT-Pro-B Natriuret Pep 1490 (0-1800) pg/mL Serum Total Protein 7.9 (6.3-8.2) g/dL Albumin 4.2 (3.5-5.0) g/dL Triglycerides (30-150) mg/dL Cholesterol (50-200) mg/dL LDL Cholesterol (30-100) mg/dL HDL Cholesterol (40-60) mg/dL Heart Disease Risk Ratio 07/02/18 07/02/18 07/03/18 Range/Units 15:40 16:00 05:12 WBC (4.0-10.5) K/mm3 RBC (4.1-5.6) M/mm3 Hgb (12.5-18.0) gm/dl Hct (42-50) % MCV (78-100) fl MCH (26-32) pg MCHC (32-36) g/dl RDW (11.5-14.0) % Plt Count (150-450) K/mm3 MPV (6-9.5) fl Sodium (137-145) mmol/L Potassium (3.5-5.1) mmol/L Chloride (98-107) mmol/L Carbon Dioxide (22-30) mmol/L Anion Gap (5-15) MEQ/L BUN (9-20) mg/dL Creatinine (0.66-1.25) mg/dL Estimated GFR ML/MIN Glucose (74-106) mg/dL Hemoglobin A1c 7.12 H (4.5-6.0) % Calcium (8.4-10.2) mg/dL Total Bilirubin (0.2-1.3) mg/dL AST (17-59) U/L ALT (0-50) U/L Alkaline Phosphatase (38-126) U/L Troponin I < 0.012 (0.000-0.034) ng/mL NT-Pro-B Natriuret Pep (0-1800) pg/mL Serum Total Protein (6.3-8.2) g/dL Albumin (3.5-5.0) g/dL Triglycerides 149 (30-150) mg/dL Cholesterol 125 (50-200) mg/dL LDL Cholesterol 67 (30-100) mg/dL HDL Cholesterol 40 (40-60) mg/dL Heart Disease Risk Ratio 3.1 Micro Results-Entire Visit: Accuchecks Date 07/03/18 Date 07/03/18 Date 07/02/18 Date 07/02/18 Time 11:30 Time 07:30 Time 21:00 Time 16:30 Accucheck Value: 152 Accucheck Value: 131 Accucheck Value: 174 Accucheck Value: 145 - Radiology Exams Ordered Rad Exams-Entire Visit: Radiology Procedures Category Date Time Status CHEST 2 VIEWS (PA AND LAT) Routine Exams 07/02/18 17:15 Completed CHEST 2 VIEWS (PA AND LAT) Urgent Exams 07/03/18 17:00 Ordered ECHO W/2D AND DOPPLER [US] Routine Exams 07/03/18 07:00 Taken - Procedures and Test Procedures and Tests throughout Hospitalization: Therapy Orders & Screens 07/02/18 16:22 RT Screen per Nursing Assess ONCE Comment: Protocol Order Physician Instructions: Greater than 3 points order RT Admission Screen Reason For Exam: Triggered on Admission Diagnosis: SOB Diagnosis: SOB Pneumonia: No Home O2: Yes Asthma: No CHF: Yes Home CPAP/BIPAP: No Home Nebs/MDI: No Total Points: 8 07/02/18 17:05 EKG ROUTINE Comment: Diagnosis: SOB 07/02/18 17:53 Oxygen NASAL CANNULA 3 lpm Comment: Diagnosis: SOB,chf Respiratory Therapy Assessment DAILY Comment: Diagnosis: SOB,chf 07/02/18 20:43 Peak Expiratory Flow Rate ONCE Comment: Reason For Exam: Diagnosis: SOB,chf 07/03/18 10:47 Qualify for Home Oxygen TODAY Comment: SEE IF QUALIFIES FOR OXYGEN 11/11, HAS NOC ONLY NOW Diagnosis: SOB,chf - Discharge Discharge Date: 07/03/18 Disposition: Home, Self-Care Condition: Stable Prescriptions: Continue Sennosides/Docusate Sodium [Senna-Docusate Sodium Tablet] 8.5 mg PO BID Sitagliptin Phosphate [Januvia] 50 mg PO BID Levothyroxine Sodium 75 Mcg [Synthroid 75 Mcg] 75 mcg PO DAILY Glipizide 10 mg [Glucotrol 10 MG] 10 mg PO BID Famotidine 20 mg [Pepcid 20 MG] 40 mg PO BID Tamsulosin HCl [Flomax] 1 tab PO HS Rivaroxaban [Xarelto] 20 mg PO HS Hydralazine HCl 50 mg PO BID Tramadol HCl [Ultram] 50 mg PO BID PRN Carisoprodol 350 mg PO TID PRN PRN PRN Reason: Pain Insulin Glargine [Lantus Insulin] 55 unit SQ HS Carvedilol [Coreg] 25 mg PO BID Atorvastatin Calcium [Lipitor] 20 mg PO HS Bumetanide [Bumex] 2 mg PO DAILY PRN PRN PRN Reason: fluid retention Follow up with: QASIM DE LA PAZ MD [Primary Care Provider] - 1 Week
--- NOTE | 2018-07-06 15:15 | ECHO ---
Transthoracic echocardiographic examination and color Doppler was done on 07/03/2018. INDICATION: Congestive heart failure. IMPRESSION: 1) MODERATE TO SEVERE LEFT VENTRICLE HYPOKINESIA. EJECTION FRACTION 30%. 2) TRACE TRICUSPID REGURGITATION. RIGHT VENTRICULAR SYSTOLIC PRESSURE OF 31 MM OF MERCURY. 3) LEFT ATRIAL ENLARGEMENT. 4) LEFT VENTRICULAR HYPERTROPHY. 5) SCLEROTIC AORTIC VALVE. The left ventricle was not well visualized but this demonstrated moderate to severe left ventricular hypokinesia, ejection fraction around 30%. There is mild left ventricular hypertrophy. The mitral valve is seen and this opens adequately. No significant mitral regurgitation is seen. Left atrium is enlarged. The aortic valve is sclerotic. There is no significant gradient across the aortic valve. The right side chambers are normal. There is trace tricuspid regurgitation. The right ventricular systolic pressure of 31 mm of Mercury.
== END 2018-07-03 15:43 | disposition home or self-care (01) ==
LOC: MED SURG 14:46
PROVIDERS: ADMIT General Practice; ATTEND General Practice
DX: J44.9 Chronic obstructive pulmonary disease, unspecified (principal); I50.43 Acute on chronic combined systolic (congestive) and diastolic (congestive) heart failure; E11.65 Type 2 diabetes mellitus with hyperglycemia; I10 Essential (primary) hypertension; E03.9 Hypothyroidism, unspecified; I48.2 Chronic atrial fibrillation; I27.81 Cor pulmonale (chronic); I25.10 Atherosclerotic heart disease of native coronary artery without angina pectoris; Z79.4 Long term (current) use of insulin; Z79.899 Other long term (current) drug therapy; Z95.1 Presence of aortocoronary bypass graft
CPT/HCPCS: 36415; 71046; 80053; 80061; 82962; 83036; 83721; 83880; 84484; 85027; 93005; 93268; 93306; 94150; 94640; 94762; J7609; A9270-GY; G0378

== ENCOUNTER 2018-08-30 22:11 | Inpatient (IN) | payer MEDICARE, BC ==
[2018-08-30] MEDS ORDERED: solu-MEDROL 125 MG IV ONE (22:19)
[2018-08-30] MEDS ORDERED: PROVENTIL 2.5 MG/3 ML NEB IH ONE ×2 (22:19)
--- NOTE | 2018-08-30 22:23 | ERPHSYRPT ---
- History of Present Illness Time Seen by Provider: 08/30/18 22:19 Source: patient Exam Limitations: no limitations Physician History: 78-year-old white male with history of coronary artery disease, high blood pressure, COPD, congestive heart failure, diabetes type 2, renal failure Patient arrives with complaint of shortness of breath cough nonproductive symptoms for 7 days denies any chest pain he does state he has some chronic edema in the right lower extremity. Patient was noted by medics to be markedly short of breath patient with bilateral we is bilateral rhonchi patient was given DuoNeb treatment prior to arrival she arrives to with wheezing and shortness of breath. Patient denies chest pain however he does state that he has pain in his upper abdomen with taking a deep breath Past medical history includes. Hot coronary artery disease, high blood pressure , COPD, congestive heart failure, diabetes type 2, prostate problems, renal failure Past surgical history includes CABG, cholecystectomy, orthopedic surgery, cardiac stents Timing/Duration: day(s) (5 days) Activities at Onset: none Severity of Dyspnea-Max: moderate Severity of Dyspnea-Current: moderate Possible Cause: frequent episodes Associated Symptoms: constant, cough, edema, wheezing, ankle swelling, heaviness , No intermittent, No anxiety, No chest pain/discomfort, No fever, No insomnia, No loss of appetite, No lightheadedness, No weakness, No chills, No hemoptysis, No calf pain, No dizziness, No heart racing, No lightheadedness, No leg swelling , No muscle spasms feet, No muscle spasms hands, No painful breathing, No productive cough, No sweating, No tightness, No tingling face International travel in last 2 weeks: No Allergies/Adverse Reactions: nadolol [From Corgard] Allergy (Mild, Verified 11/09/17 10:18) hydromorphone HCl [From Dilaudid] Allergy (Verified 11/09/17 10:18) metoclopramide [From Reglan] Adverse Reaction (Verified 07/02/18 15:16) Home Medications: Famotidine 20 mg [Pepcid 20 MG] 40 mg PO BID 08/15/15 [History] Glipizide 10 mg [Glucotrol 10 MG] 10 mg PO BID 08/15/15 [History] Hydralazine HCl 50 mg PO BID 08/15/15 [History] Levothyroxine Sodium 75 Mcg [Synthroid 75 Mcg] 75 mcg PO DAILY 08/15/15 [ History] Rivaroxaban [Xarelto] 20 mg PO HS 08/15/15 [History] Sennosides/Docusate Sodium [Senna-Docusate Sodium Tablet] 8.5 mg PO BID [History] Sitagliptin Phosphate [Januvia] 50 mg PO BID 08/15/15 [History] Tamsulosin HCl [Flomax] 1 tab PO HS 08/15/15 [History] Atorvastatin Calcium [Lipitor] 20 mg PO HS 07/02/18 [History] Carisoprodol 350 mg PO TID PRN PRN 07/02/18 [History] Carvedilol [Coreg] 25 mg PO BID 07/02/18 [History] Insulin Glargine [Lantus Insulin] 55 unit SQ HS 07/02/18 [History] Tramadol HCl [Ultram] 50 mg PO BID PRN 07/02/18 [History] Hx Tetanus, Diphtheria Vaccination/Date Given: Yes Hx Influenza Vaccination/Date Given: Yes Hx Pneumococcal Vaccination/Date Given: Yes - Review of Systems Constitutional: No Fever, No Chills Eyes: No Symptoms Ears, Nose, & Throat: No Symptoms Respiratory: Cough, Dyspnea, Wheezing Cardiac: Edema, No Chest Pain, No Syncope Abdominal/Gastrointestinal: No Abdominal Pain, No Nausea, No Vomiting, No Diarrhea Genitourinary Symptoms: No Dysuria Musculoskeletal: No Back Pain, No Neck Pain Skin: No Rash Neurological: No Dizziness, No Focal Weakness, No Sensory Changes Psychological: No Symptoms Endocrine: No Symptoms All Other Systems: Reviewed and Negative - Past Medical History Pertinent Past Medical History: Yes Neurological History: No Pertinent History ENT History: No Pertinent History, Cataracts Cardiac History: Arrhythmia, Congestive Heart Failure, Coronary Artery Disease, Hypertension, Myocardial Infarction ([place]) Respiratory History: CHF, COPD Endocrine Medical History: Diabetes Type II Musculoskeletal History: Arthritis GI Medical History: No Pertinent History History: No Pertinent History Psycho-Social History: No Pertinent History Male Reproductive Disorders: Prostate Problems Other Medical History: pt states history of renal failure - Past Surgical History Past Surgical History: Yes Neuro Surgical History: No Pertinent History Cardiac: CABG Respiratory: No Pertinent History Gastrointestinal: Appendectomy, Cholecystectomy Genitourinary: No Pertinent History Musculoskeletal: Orthopedic Surgery Male Surgical History: No Pertinent History Other Surgical History: stents in past as stated per pt, CABG - Social History Smoking Status: Former smoker Exposure to second hand smoke: No Drug Use: none Patient Lives Alone: Yes - Nursing Vital Signs Nursing Vital Signs: Initial Vital Signs Temperature 98.2 F 08/30/18 22:12 Pulse Rate 120 H 08/30/18 22:12 Respiratory Rate 18 08/30/18 22:12 Blood Pressure 165/95 08/30/18 22:12 O2 Sat by Pulse Oximetry 97 08/30/18 22:12 Pain Scale Pain Intensity 0 - Physical Exam General Appearance: moderate distress, alert (and an in and and an in and in) Eye Exam: PERRL/EOMI Ears, Nose, Throat Exam: hearing grossly normal, normal ENT inspection, normal pharynx, No abnormal TM (R), No abnormal TM (L), No sinus pain/drainage, No hearing decreased, No nasal congestion, No pharyngeal erythema, No tonsillar exudate Neck Exam: normal inspection, supple Respiratory Exam: airway intact, diminished breath sounds, rhonchi, wheezing, No chest tenderness, No lungs clear Cardiovascular/Chest Exam: normal heart sounds, regular rate/rhythm, tachycardia Abdominal/Gastrointestinal Exam: soft, No tenderness, No distention, No mass Extremity Exam: non-tender (and), normal range of motion, normal inspection, no calf tenderness, no pedal edema Peripheral Pulses Exam: dorsalis-pedis (R): 1+, dorsalis-pedis (L): 1+ Neurologic Exam: alert, oriented x 3, cooperative, flat ironer II-XII nml as tested, sensation nml, No motor deficits Skin Exam: normal color, warm, No dry SpO2 Interpretation: normal (97%) SpO2: 97 - Course Nursing assessment & vital signs reviewed: Yes EKG Interpreted by Me: RATE (120 bpm), Sinus Tach, NORMAL AXIS, Other (EKG: Sinus tachycardia, at 120 beats per minute, no acute ST or T wave changes noted , compared to July 02, 2018) - Radiology Exams Chest X-ray Interpretation: Interpreted by me (no acute disease process noted) Ordered Tests: Active Orders 24 hr Category Date Time Status Business Systems Architect STAT Care 08/30/18 22:14 Active EKG-ER Only STAT Care 08/30/18 22:14 Active Menjivar [Catheter-[place] Menjivar] STAT Care 08/30/18 22:40 Active IV Insertion STAT Care 08/30/18 22:14 Active Pulse Oximetry (ED) STAT Care 08/30/18 22:14 Active CHEST 1 VIEW (PORTABLE) Stat Exams 08/30/18 22:14 Taken CBC W DIFF Stat Lab 08/30/18 22:53 Completed CMP Stat Lab 08/30/18 22:53 Completed CULTURE,URINE Stat Lab 08/30/18 22:53 Received D-DIMER QUANTITATION Stat Lab 08/30/18 22:53 Completed Manual Differential NC Stat Lab 08/30/18 22:53 Completed NT PRO BNP Stat Lab 08/30/18 22:53 Completed PROTIME WITH INR Stat Lab 08/30/18 22:53 Completed PTT Stat Lab 08/30/18 22:53 Completed TROPONIN Q3H Lab 08/30/18 22:53 Completed TROPONIN Q3H Lab 08/31/18 01:15 Ordered TROPONIN Q3H Lab 08/31/18 04:15 Ordered TROPONIN Q3H Lab 08/31/18 07:15 Ordered TROPONIN Q3H Lab 08/31/18 10:15 Ordered UA W/RFX UR CULTURE Stat Lab 08/30/18 22:53 Completed VENOUS BLOOD GAS Stat Lab 08/30/18 22:34 Completed VENOUS BLOOD GAS Stat Lab 08/31/18 00:19 Ordered BiPap/CPAP STAT RT 08/30/18 22:52 Active Respiratory Therapy Assessment DAILY RT 08/30/18 22:25 Completed Medication Summary Discontinued Medications Generic Name Dose Route Start Last Admin Trade Name Dmitriq PRN Reason Stop Dose Admin Albuterol Sulfate 2.5 mg 08/30/18 22:19 08/30/18 22:24 Proventil 2.5 Mg/3 Ml Neb IH 08/30/18 22:20 2.5 mg STAT ONE Administration Albuterol Sulfate Confirm 08/30/18 22:19 Proventil 2.5 Mg/3 Ml Neb Administered 08/30/18 22:20 Dose 2.5 mg IH .STK-MED ONE Methylprednisolone Sodium Succinate 125 mg 08/30/18 22:19 08/30/18 22:44 Solu-Medrol 125 Mg IV 08/30/18 22:20 125 mg STAT ONE Administration Methylprednisolone Sodium Succinate Confirm 08/30/18 22:42 Solu-Medrol 125 Mg Administered 08/30/18 22:43 Dose 125 mg .ROUTE .STK-MED ONE Lab/Rad Data: Laboratory Result Diagrams 08/30/18 22:53 08/30/18 22:53 Laboratory Results 08/30/18 08/30/18 08/30/18 Range/Units 22:53 22:53 22:53 WBC (4.0-10.5) K/mm3 RBC (4.1-5.6) M/mm3 Hgb (12.5-18.0) gm/dl Hct (42-50) % MCV (78-100) fl MCH (26-32) pg MCHC (32-36) g/dl RDW (11.5-14.0) % Plt Count (150-450) K/mm3 MPV (6-9.5) fl PT 24.7 H (8.83-12.87) SECONDS INR 2.11 (0.8-3.0) APTT 35.5 (24.1-36.1) SECONDS D-Dimer 1402 H* (215-500) ng/mL pO2/FiO2 Ratio % VBG pH (7.32-7.42) VBG pCO2 at Pat Temp (42-55) mm/Hg VBG pO2 at Pat Temp (25-40) mm/Hg VBG HCO3 (22-28) meq/L VBG O2 Sat ([place]) (95-100) VBG Base Excess (-2.0-2.0) VBG Hemoglobin VBG Carboxyhemoglobin (0.0-6.9) % T HGB POC Potassium (3.5-5.1) Sodium (137-145) mmol/L Potassium (3.5-5.1) mmol/L Chloride (98-107) mmol/L Carbon Dioxide (22-30) mmol/L Anion Gap (5-15) MEQ/L BUN (9-20) mg/dL Creatinine (0.66-1.25) mg/dL Estimated GFR ML/MIN Glucose (74-106) mg/dL Calcium (8.4-10.2) mg/dL Total Bilirubin (0.2-1.3) mg/dL AST (17-59) U/L ALT (0-50) U/L Alkaline Phosphatase (38-126) U/L Troponin I < 0.012 (0.000-0.034) ng/mL NT-Pro-B Natriuret Pep (0-1800) pg/mL Serum Total Protein (6.3-8.2) g/dL Albumin (3.5-5.0) g/dL Urine Color [place]ITLIN (YELLOW) Urine Appearance SLIGHTLY CLOUDY (CLEAR) Urine pH 5.0 (5-6) Ur Specific [place] 1.020 (1.005-1.025) Urine Protein >=500 (Negative) Urine Ketones NEGATIVE (NEGATIVE) Urine Blood LARGE (0-5) Will/ul Urine Nitrite NEGATIVE (NEGATIVE) Urine Bilirubin NEGATIVE (NEGATIVE) Urine Urobilinogen NEGATIVE (0-1) mg/dL Ur Leukocyte Esterase NEGATIVE (NEGATIVE) Urine WBC (Auto) NONE (0-5) /HPF Urine RBC (Auto) >101 (0-2) /HPF U Epithel Cells (Auto) NONE (FEW) /HPF Urine Bacteria (Auto) NONE (NEGATIVE) /HPF Urine Culture Reflexed ORDERED SEPARATELY (NO) Urine Glucose 50 (NEGATIVE) mg/dL 08/30/18 08/30/18 08/30/18 Range/Units 22:53 22:53 22:34 WBC 7.7 (4.0-10.5) K/mm3 RBC 4.90 (4.1-5.6) M/mm3 Hgb 14.5 (12.5-18.0) gm/dl Hct 47.5 (42-50) % MCV 96.9 (78-100) fl MCH 29.6 (26-32) pg MCHC 30.5 L (32-36) g/dl RDW 15.1 H (11.5-14.0) % Plt Count 227 (150-450) K/mm3 MPV 12.3 H (6-9.5) fl PT (8.83-12.87) SECONDS INR (0.8-3.0) APTT (24.1-36.1) SECONDS D-Dimer (215-500) ng/mL pO2/FiO2 Ratio 36.0 % VBG pH 7.27 L (7.32-7.42) VBG pCO2 at Pat Temp 85 H* (42-55) mm/Hg VBG pO2 at Pat Temp 28 (25-40) mm/Hg VBG HCO3 39.0 H* (22-28) meq/L VBG O2 Sat ([place]) 52.3 L (95-100) VBG Base Excess 8.3 H (-2.0-2.0) VBG Hemoglobin 14.8 VBG Carboxyhemoglobin 4.1 (0.0-6.9) % T HGB POC Potassium 4.9 (3.5-5.1) Sodium 140 (137-145) mmol/L Potassium 4.6 (3.5-5.1) mmol/L Chloride 99 (98-107) mmol/L Carbon Dioxide 35 H (22-30) mmol/L Anion Gap 10.2 (5-15) MEQ/L BUN 24 H (9-20) mg/dL Creatinine 1.21 (0.66-1.25) mg/dL Estimated GFR > 60.0 ML/MIN Glucose 134 H (74-106) mg/dL Calcium 9.1 (8.4-10.2) mg/dL Total Bilirubin 0.20 (0.2-1.3) mg/dL AST 23 (17-59) U/L ALT 26 (0-50) U/L Alkaline Phosphatase 64 (38-126) U/L Troponin I (0.000-0.034) ng/mL NT-Pro-B Natriuret Pep 2840 H (0-1800) pg/mL Serum Total Protein 6.6 (6.3-8.2) g/dL Albumin 3.3 L (3.5-5.0) g/dL Urine Color (YELLOW) Urine Appearance (CLEAR) Urine pH (5-6) Ur Specific [place] (1.005-1.025) Urine Protein (Negative) Urine Ketones (NEGATIVE) Urine Blood (0-5) Will/ul Urine Nitrite (NEGATIVE) Urine Bilirubin (NEGATIVE) Urine Urobilinogen (0-1) mg/dL Ur Leukocyte Esterase (NEGATIVE) Urine WBC (Auto) (0-5) /HPF Urine RBC (Auto) (0-2) /HPF U Epithel Cells (Auto) (FEW) /HPF Urine Bacteria (Auto) (NEGATIVE) /HPF Urine Culture Reflexed (NO) Urine Glucose (NEGATIVE) mg/dL - Progress Progress: improved Air Movement: fair Progress Note: 05/13/19 00:41 This is a 78-year-old white male with history of coronary artery disease, high blood pressure, COPD, congestive heart failure, diabetes type 2, renal failure, prostate problems He arrives with complaint of shortness of breath for 7 days she states she's been coughing which has been nonproductive as well for 7 days. She denies any chest pain On arrival of the medics patient was noted to be markedly short of breath with the rhonchi and wheezes throughout his lung [place]. He does complain of edema to his lower extremities however he perhaps has 1+ edema in this is nonpitting on arrival patient had markedly decreased breath sounds in continued wheezing despite receiving duo neb treatment prior to arrival patient was given Solu-Medrol 125 mg IV he was also given an albuterol seng. . Patient was noted to have venous blood gases which were remarkable for a pH of 7.27 and a PCO2 of 85 patient was started on BiPAP. Patient is now feeling somewhat better patient's chest x-ray no acute disease processes noted patient's EKG sinus tachycardia 120 beats per minute normal axis no acute ST or T wave changes are noted patient's CBC white blood cell 7.7 hemoglobin 14.5 hematocrit 47.5 platelets are 227 patient did have an elevated d -dimer however patient is on throughout to 20 mg orally at night patient's urinalysis specific gravity 1.020 pH 5.0 glucose is 50 they're negative ketones there no white cells per high-power field there are n greater than 101 red cells per high-power field patient's troponin is less than 0.012 patient's chemistry sodium 140 potassium 4.6 chloride 99 bicarbonate 35 BUN is 24 creatinine 1.21 glucose is 134 I've discussed the patient's case with Dr. Morales Diagnosis shortness of breath, COPD with exacerbation, hypercapnia. Will place patient on telemetry patient is not happy with his BiPAP which he has agreed to use it at this time I have ordered a repeat venous gases and will adjust the patient's oxygen per respiratory as patient's condition permits. Will go ahead and give patient Rocephin 1 g IV here in the emergency room will plan to place on observation telemetry continue IV Solu-Medrol continued IV Rocephin begin IV Zithromax. Place patient on sliding scale insulin coverage. The patient's case is discussed with Dr. Morales who is library consultant for Dr. De La Paz, the patient's family physician. . - Departure Departure Disposition: Observation Clinical Impression: Shortness of breath, COPD with exacerbation, Hypercapnia Condition: Fair Critical Care Time: No Referrals: QASIM DE LA PAZ MD [Primary Care Provider] - Instructions: Chronic Obstructive Pulmonary Disease
[2018-08-30 22:42] LABS: VBG BASE EXCESS 8.3 (-2.0-2.0); VBG CARBOXYHEMOGLOBIN 4.1 % T HGB (0.0-6.9); VBG HEMOGLOBIN 14.8; VBG O2 SATURATION 52.3 (95-100); VBG POTASSIUM 4.9 (3.5-5.1); VBG pH 7.27 (7.32-7.42)
[2018-08-30] MEDS ORDERED: solu-MEDROL 125 MG ONE (22:42)
[2018-08-30 23:01] LABS: Hematocrit 47.5 % (42-50); Hemoglobin 14.5 gm/dl (12.5-18.0); Mean Cell Volume 96.9 fl (78-100); Mean Corpuscular Hemoglobin 29.6 pg (26-32); Mean Corpuscular Hgb Concent. 30.5 g/dl (32-36); Mean Platelet Volume 12.3 fl (6-9.5); Platelet Count 227 K/mm3 (150-450); Red Cell Distribution Width 15.1 % (11.5-14.0); White Blood Count 7.7 K/mm3 (4.0-10.5)
[2018-08-30 23:13] LABS: Appearance SLIGHTLY CLOUDY (CLEAR); Bilirubin NEGATIVE (NEGATIVE); Blood LARGE Ery/ul (0-5); Glucose 50 mg/dL (NEGATIVE); Ketones NEGATIVE (NEGATIVE); Leukocyte Esterase NEGATIVE (NEGATIVE); Nitrite NEGATIVE (NEGATIVE); Protein,Urine Dip >=500 (Negative); Urobilinogen NEGATIVE mg/dL (0-1)
[2018-08-30 23:17] LABS: RBC >101 /HPF (0-2)
[2018-08-30 23:37] LABS: INR 2.11 (0.8-3.0); PROTIME 24.7 SECONDS (8.83-12.87)
[2018-08-30 23:40] LABS: PTT 35.5 SECONDS (24.1-36.1)
[2018-08-30 23:51] LABS: ALBUMIN 3.3 g/dL (3.5-5.0); ALKALINE PHOSPHATASE 64 U/L (38-126); ANION GAP 10.2 MEQ/L (5-15); BLOOD UREA NITROGEN 24 mg/dL (9-20); CHLORIDE 99 mmol/L (98-107); Calcium 9.1 mg/dL (8.4-10.2); Carbon Dioxide 35 mmol/L (22-30); Creatinine 1 1.21 mg/dL (0.66-1.25); Glucose 134 mg/dL (74-106); NT PRO BNP 2840 pg/mL (0-1800); Potassium 4.6 mmol/L (3.5-5.1); SGOT/AST 23 U/L (17-59); SGPT/ALT 26 U/L (0-50); SODIUM 140 mmol/L (137-145); Total Protein 6.6 g/dL (6.3-8.2)
[2018-08-31] MEDS ORDERED: ROCEPHIN 1 Gm-D5w 50 ml Bag** 1 G/50 ML IVPB IV STA (00:47)
[2018-08-31] MEDS ORDERED: ROCEPHIN 1 Gm-D5w 50 ml Bag** 1 G/50 ML IVPB IV ONE (00:51)
[2018-08-31 00:57] LABS: VBG BASE EXCESS 7.8 (-2.0-2.0); VBG HCO3- 36.6 meq/L (22-28); VBG HEMOGLOBIN 13.7; VBG O2 SATURATION 65.2 (95-100); VBG POTASSIUM 4.4 (3.5-5.1); VBG pH 7.32 (7.32-7.42)
[2018-08-31 01:28] LABS: BAND 2 % (0.0-2.0); Eosinophil 11 % (0.00-3.0); Lymphocytes 7 % (24-44); Monocyte 15 % (0.0-12.0); Neutrophils 65 % (36.-66.); Total Cells Counted 100
[2018-08-31 01:29] LABS: Platelet Estimate NORMAL (NORMAL)
[2018-08-31] MEDS ORDERED: solu-MEDROL 125 MG IV SCH (02:04)
[2018-08-31 04:28] LABS: BASOPHIL % 0.3 % (0.0-0.4); Basophil (Absolute #) 0.02 (0-0.4); Eosinophil % 0.4 % (0.00-5.0); Eosinophil (Absolute #) 0.03 (0-0.5); Granulocyte Absolute (ANC) 6.79 (1.4-6.9); Granulocytes % 87.4 % (36.0-66.0); Hematocrit 46.8 % (42-50); Hemoglobin 14.3 gm/dl (12.5-18.0); Lymphocyte (Absolute #) 0.74 (1.0-4.6); Lymphocytes % 9.5 % (24.0-44.0); Mean Cell Volume 97.3 fl (78-100); Mean Corpuscular Hemoglobin 29.7 pg (26-32); Mean Corpuscular Hgb Concent. 30.6 g/dl (32-36); Mean Platelet Volume 11.7 fl (6-9.5); Monocyte (Absolute #) 0.19 (0.0-1.3); Monocytes % 2.4 % (0.0-12.0); Platelet Count 190 K/mm3 (150-450); Red Blood Count 4.81 M/mm3 (4.1-5.6); Red Cell Distribution Width 14.9 % (11.5-14.0); White Blood Count 7.8 K/mm3 (4.0-10.5)
[2018-08-31 04:39] LABS: ALBUMIN 3.9 g/dL (3.5-5.0); ALKALINE PHOSPHATASE 75 U/L (38-126); ANION GAP 14.8 MEQ/L (5-15); BLOOD UREA NITROGEN 24 mg/dL (9-20); CHLORIDE 100 mmol/L (98-107); Calcium 9.3 mg/dL (8.4-10.2); Carbon Dioxide 32 mmol/L (22-30); Creatinine 1 1.09 mg/dL (0.66-1.25); Glucose 182 mg/dL (74-106); Potassium 4.9 mmol/L (3.5-5.1); SGOT/AST 30 U/L (17-59); SGPT/ALT 30 U/L (0-50); SODIUM 142 mmol/L (137-145); Total Protein 7.5 g/dL (6.3-8.2)
[2018-08-31] MEDS: solu-MEDROL 125 MG IV SCH ×4 (05:02→22:16)
--- NOTE | 2018-08-31 08:26 | PCM.HP ---
History of Present Illness - Chief Complaint Chief Complaint: SOB; Exac of COPD; Hypercapnea History of Present Illness: is a 78 year old male patient of Dr Frye who presented to the ER with a 1 week history of nonproductive cough and worsening shortness of breath, he has a history of chf and copd and felt like he was having trouble with both. He has chronic swelling, maybe slightly worse at this time. He denies chest pain or syncope, reports his breathing has improved since arrival. - Review of Systems Constitutional: No Fever, No Chills Respiratory: Cough, Short Of Breath Cardiac: Edema, No Chest Pain, No Syncope Abdominal/Gastrointestinal: No Abdominal Pain, No Nausea, No Vomiting, No Diarrhea Skin: No Rash All Other Systems: Reviewed and Negative Medications & Allergies Home Medications: Home Medication List Famotidine 20 mg [Pepcid 20 MG] 40 mg PO BID 08/15/15 [History Confirmed 08/31/18] Glipizide 10 mg [Glucotrol 10 MG] 10 mg PO BID 08/15/15 [History Confirmed 08/31/18] Hydralazine HCl 50 mg PO BID 08/15/15 [History Confirmed 08/31/18] Levothyroxine Sodium 75 Mcg [Synthroid 75 Mcg] 75 mcg PO DAILY 08/15/15 [ History Confirmed 08/31/18] Rivaroxaban [Xarelto] 20 mg PO HS 08/15/15 [History Confirmed 08/31/18] Sennosides/Docusate Sodium [Senna-Docusate Sodium Tablet] 8.5 mg PO BID [History Confirmed 08/31/18] Sitagliptin Phosphate [Januvia] 50 mg PO BID 08/15/15 [History Confirmed ] Tamsulosin HCl [Flomax] 0.4 mg PO HS 08/15/15 [History Confirmed 08/31/18] Atorvastatin Calcium [Lipitor] 20 mg PO HS 07/02/18 [History Confirmed 08/31/18] Carisoprodol 350 mg PO TID PRN PRN 07/02/18 [History Confirmed 08/31/18] Carvedilol [Coreg] 25 mg PO BID 07/02/18 [History Confirmed 08/31/18] Insulin Glargine [Lantus Insulin] 55 unit SQ HS 07/02/18 [History Confirmed 08/31/18] Tramadol HCl [Ultram] 50 mg PO BID PRN 07/02/18 [History Confirmed 08/31/18] Bumetanide [Bumex] 2 mg PO DAILY #0 07/03/18 [Rx Confirmed 08/31/18] Allergies/Adverse Reactions: Allergies Allergy/AdvReac Type Severity Reaction Status Date / Time nadolol [From Corgard] Allergy Mild Verified 08/31/18 02:57 hydromorphone HCl Allergy Verified 08/31/18 02:57 [From Dilaudid] metoclopramide [From Reglan] AdvReac Verified 08/31/18 02:57 - Past Medical History Past Medical History: Yes Neurological History: No Pertinent History ENT History: No Pertinent History, Cataracts Cardiac History: Arrhythmia, Congestive Heart Failure, Coronary Artery Disease, Hypertension, Myocardial Infarction ([place]) Respiratory History: CHF, COPD Endocrine Medical History: Diabetes Type II Musculoskelatal History: Arthritis GI Medical History: No Pertinent History History: No Pertinent History Pyscho-Social History: No Pertinent History Male Reproductive Disorders: Prostate Problems Comment: pt states history of renal failure - Past Surgical History Past Surgical History: Yes Neuro Surgical History: No Pertinent History Cardiac History: CABG Respiratory Surgery: No Pertinent History GI Surgical History: Appendectomy, Cholecystectomy Genitourinary Surgical Hx: No Pertinent History Musculskeletal Surgical Hx: Orthopedic Surgery Male Surgical History: No Pertinent History Other Surgical History: stents in past as stated per pt, CABG - Social History Smoking Status: Former smoker Exposure to second hand smoke: No Alcohol: None Drug Use: none - Physical Exam Vital Signs: Vital Signs - 24 hr Temp Pulse Resp BP Pulse Ox 08/31/18 07:35 98.1 F 119 H 18 154/84 92 L 08/31/18 05:22 118 H 29 H 97 08/31/18 04:00 97.6 F 118 H 24 171/81 98 08/31/18 02:04 99 08/31/18 02:03 97.3 F 118 H 24 179/95 99 08/31/18 00:47 97 08/31/18 00:40 119 H 24 154/91 98 08/30/18 23:50 119 H 20 154/91 98 08/30/18 23:00 99.7 F 120 H 20 165/105 99 08/30/18 22:37 98 08/30/18 22:25 120 H 28 H 97 08/30/18 22:19 28 H 88 L 08/30/18 22:12 98.2 F 120 H 18 165/95 97 Oxygen-Last 24 hours O2 Percentage 5 Liters = 40% O2 Percentage 4 Liters = 36% O2 Percentage 35% O2 Percentage 2 Liters = 28% General Appearance: no apparent distress, obese Neurologic Exam: alert, oriented x 3 Respiratory Exam: prolonged expirations, wheezing Cardiovascular Exam: regular rate/rhythm, normal heart sounds, normal peripheral pulses Gastrointestinal/Abdomen Exam: soft, normal bowel sounds, No tenderness, No mass Extremity Exam: swelling (chronic swelling changes to lower extremities, 1+ edema BLE) Results - Labs Lab/Micro Results: Lab Results-Last 24 Hours 08/30/18 08/30/18 08/30/18 Range/Units 22:34 22:53 22:53 WBC 7.7 (4.0-10.5) K/mm3 RBC 4.90 (4.1-5.6) M/mm3 Hgb 14.5 (12.5-18.0) gm/dl Hct 47.5 (42-50) % MCV 96.9 (78-100) fl MCH 29.6 (26-32) pg MCHC 30.5 L (32-36) g/dl RDW 15.1 H (11.5-14.0) % Plt Count 227 (150-450) K/mm3 MPV 12.3 H (6-9.5) fl Gran % (36.0-66.0) % Eos # (Auto) (0-0.5) Absolute Lymphs (auto) (1.0-4.6) Absolute Monos (auto) (0.0-1.3) Lymphocytes % (24.0-44.0) % Monocytes % (0.0-12.0) % Eosinophils % (0.00-5.0) % Basophils % (0.0-0.4) % Absolute Granulocytes (1.4-6.9) Segmented Neutrophils 65 (36.-66.) % Band Neutrophils 2 (0.0-2.0) % Lymphocytes (Manual) 7 L (24-44) % Monocytes (Manual) 15 H (0.0-12.0) % Eosinophils (Manual) 11 H (0.00-3.0) % Basophils # (0-0.4) Platelet Estimate NORMAL (NORMAL) RBC Morphology NORMAL PT (8.83-12.87) SECONDS INR (0.8-3.0) APTT (24.1-36.1) SECONDS D-Dimer (215-500) ng/mL pO2/FiO2 Ratio 36.0 % VBG pH 7.27 L (7.32-7.42) VBG pCO2 at Pat Temp 85 H* (42-55) mm/Hg VBG pO2 at Pat Temp 28 (25-40) mm/Hg VBG HCO3 39.0 H* (22-28) meq/L VBG O2 Sat ([place]) 52.3 L (95-100) VBG Base Excess 8.3 H (-2.0-2.0) VBG Hemoglobin 14.8 VBG Carboxyhemoglobin 4.1 (0.0-6.9) % T HGB POC Potassium 4.9 (3.5-5.1) Sodium 140 (137-145) mmol/L Potassium 4.6 (3.5-5.1) mmol/L Chloride 99 (98-107) mmol/L Carbon Dioxide 35 H (22-30) mmol/L Anion Gap 10.2 (5-15) MEQ/L BUN 24 H (9-20) mg/dL Creatinine 1.21 (0.66-1.25) mg/dL Estimated GFR > 60.0 ML/MIN Glucose 134 H (74-106) mg/dL Calcium 9.1 (8.4-10.2) mg/dL Total Bilirubin 0.20 (0.2-1.3) mg/dL AST 23 (17-59) U/L ALT 26 (0-50) U/L Alkaline Phosphatase 64 (38-126) U/L Troponin I (0.000-0.034) ng/mL NT-Pro-B Natriuret Pep 2840 H (0-1800) pg/mL Serum Total Protein 6.6 (6.3-8.2) g/dL Albumin 3.3 L (3.5-5.0) g/dL Urine Color (YELLOW) Urine Appearance (CLEAR) Urine pH (5-6) Ur Specific [place] (1.005-1.025) Urine Protein (Negative) Urine Ketones (NEGATIVE) Urine Blood (0-5) Will/ul Urine Nitrite (NEGATIVE) Urine Bilirubin (NEGATIVE) Urine Urobilinogen (0-1) mg/dL Ur Leukocyte Esterase (NEGATIVE) Urine WBC (Auto) (0-5) /HPF Urine RBC (Auto) (0-2) /HPF U Epithel Cells (Auto) (FEW) /HPF Urine Bacteria (Auto) (NEGATIVE) /HPF Urine Culture Reflexed (NO) Urine Glucose (NEGATIVE) mg/dL 08/30/18 08/30/18 08/30/18 Range/Units 22:53 22:53 22:53 WBC (4.0-10.5) K/mm3 RBC (4.1-5.6) M/mm3 Hgb (12.5-18.0) gm/dl Hct (42-50) % MCV (78-100) fl MCH (26-32) pg MCHC (32-36) g/dl RDW (11.5-14.0) % Plt Count (150-450) K/mm3 MPV (6-9.5) fl Gran % (36.0-66.0) % Eos # (Auto) (0-0.5) Absolute Lymphs (auto) (1.0-4.6) Absolute Monos (auto) (0.0-1.3) Lymphocytes % (24.0-44.0) % Monocytes % (0.0-12.0) % Eosinophils % (0.00-5.0) % Basophils % (0.0-0.4) % Absolute Granulocytes (1.4-6.9) Segmented Neutrophils (36.-66.) % Band Neutrophils (0.0-2.0) % Lymphocytes (Manual) (24-44) % Monocytes (Manual) (0.0-12.0) % Eosinophils (Manual) (0.00-3.0) % Basophils # (0-0.4) Platelet Estimate (NORMAL) RBC Morphology PT 24.7 H (8.83-12.87) SECONDS INR 2.11 (0.8-3.0) APTT 35.5 (24.1-36.1) SECONDS D-Dimer 1402 H* (215-500) ng/mL pO2/FiO2 Ratio % VBG pH (7.32-7.42) VBG pCO2 at Pat Temp (42-55) mm/Hg VBG pO2 at Pat Temp (25-40) mm/Hg VBG HCO3 (22-28) meq/L VBG O2 Sat ([place]) (95-100) VBG Base Excess (-2.0-2.0) VBG Hemoglobin VBG Carboxyhemoglobin (0.0-6.9) % T HGB POC Potassium (3.5-5.1) Sodium (137-145) mmol/L Potassium (3.5-5.1) mmol/L Chloride (98-107) mmol/L Carbon Dioxide (22-30) mmol/L Anion Gap (5-15) MEQ/L BUN (9-20) mg/dL Creatinine (0.66-1.25) mg/dL Estimated GFR ML/MIN Glucose (74-106) mg/dL Calcium (8.4-10.2) mg/dL Total Bilirubin (0.2-1.3) mg/dL AST (17-59) U/L ALT (0-50) U/L Alkaline Phosphatase (38-126) U/L Troponin I < 0.012 (0.000-0.034) ng/mL NT-Pro-B Natriuret Pep (0-1800) pg/mL Serum Total Protein (6.3-8.2) g/dL Albumin (3.5-5.0) g/dL Urine Color [place] (YELLOW) Urine Appearance SLIGHTLY CLOUDY (CLEAR) Urine pH 5.0 (5-6) Ur Specific [place] 1.020 (1.005-1.025) Urine Protein >=500 (Negative) Urine Ketones NEGATIVE (NEGATIVE) Urine Blood LARGE (0-5) Will/ul Urine Nitrite NEGATIVE (NEGATIVE) Urine Bilirubin NEGATIVE (NEGATIVE) Urine Urobilinogen NEGATIVE (0-1) mg/dL Ur Leukocyte Esterase NEGATIVE (NEGATIVE) Urine WBC (Auto) NONE (0-5) /HPF Urine RBC (Auto) >101 (0-2) /HPF U Epithel Cells (Auto) NONE (FEW) /HPF Urine Bacteria (Auto) NONE (NEGATIVE) /HPF Urine Culture Reflexed ORDERED SEPARATELY (NO) Urine Glucose 50 (NEGATIVE) mg/dL 08/31/18 08/31/1808/31/19 Range/Units 00:50 01:15 04:23 WBC (4.0-10.5) K/mm3 RBC (4.1-5.6) M/mm3 Hgb (12.5-18.0) gm/dl Hct (42-50) % MCV (78-100) fl MCH (26-32) pg MCHC (32-36) g/dl RDW (11.5-14.0) % Plt Count (150-450) K/mm3 MPV (6-9.5) fl Gran % (36.0-66.0) % Eos # (Auto) (0-0.5) Absolute Lymphs (auto) (1.0-4.6) Absolute Monos (auto) (0.0-1.3) Lymphocytes % (24.0-44.0) % Monocytes % (0.0-12.0) % Eosinophils % (0.00-5.0) % Basophils % (0.0-0.4) % Absolute Granulocytes (1.4-6.9) Segmented Neutrophils (36.-66.) % Band Neutrophils (0.0-2.0) % Lymphocytes (Manual) (24-44) % Monocytes (Manual) (0.0-12.0) % Eosinophils (Manual) (0.00-3.0) % Basophils # (0-0.4) Platelet Estimate (NORMAL) RBC Morphology PT (8.83-12.87) SECONDS INR (0.8-3.0) APTT (24.1-36.1) SECONDS D-Dimer (215-500) ng/mL pO2/FiO2 Ratio 36.0 % VBG pH 7.32 (7.32-7.42) VBG pCO2 at Pat Temp 71 H* (42-55) mm/Hg VBG pO2 at Pat Temp 33 (25-40) mm/Hg VBG HCO3 36.6 H* (22-28) meq/L VBG O2 Sat ([place]) 65.2 L (95-100) VBG Base Excess 7.8 H (-2.0-2.0) VBG Hemoglobin 13.7 VBG Carboxyhemoglobin 4.0 (0.0-6.9) % T HGB POC Potassium 4.4 (3.5-5.1) Sodium (137-145) mmol/L Potassium (3.5-5.1) mmol/L Chloride (98-107) mmol/L Carbon Dioxide (22-30) mmol/L Anion Gap (5-15) MEQ/L BUN (9-20) mg/dL Creatinine (0.66-1.25) mg/dL Estimated GFR ML/MIN Glucose (74-106) mg/dL Calcium (8.4-10.2) mg/dL Total Bilirubin (0.2-1.3) mg/dL AST (17-59) U/L ALT (0-50) U/L Alkaline Phosphatase (38-126) U/L Troponin I < 0.012 < 0.012 (0.000-0.034) ng/mL NT-Pro-B Natriuret Pep (0-1800) pg/mL Serum Total Protein (6.3-8.2) g/dL Albumin (3.5-5.0) g/dL Urine Color (YELLOW) Urine Appearance (CLEAR) Urine pH (5-6) Ur Specific [place] (1.005-1.025) Urine Protein (Negative) Urine Ketones (NEGATIVE) Urine Blood (0-5) Will/ul Urine Nitrite (NEGATIVE) Urine Bilirubin (NEGATIVE) Urine Urobilinogen (0-1) mg/dL Ur Leukocyte Esterase (NEGATIVE) Urine WBC (Auto) (0-5) /HPF Urine RBC (Auto) (0-2) /HPF U Epithel Cells (Auto) (FEW) /HPF Urine Bacteria (Auto) (NEGATIVE) /HPF Urine Culture Reflexed (NO) Urine Glucose (NEGATIVE) mg/dL 08/31/18 08/31/18 08/31/18 Range/Units 04:23 04:23 07:15 WBC 7.8 (4.0-10.5) K/mm3 RBC 4.81 (4.1-5.6) M/mm3 Hgb 14.3 (12.5-18.0) gm/dl Hct 46.8 (42-50) % MCV 97.3 (78-100) fl MCH 29.7 (26-32) pg MCHC 30.6 L (32-36) g/dl RDW 14.9 H (11.5-14.0) % Plt Count 190 (150-450) K/mm3 MPV 11.7 H (6-9.5) fl Gran % 87.4 H (36.0-66.0) % Eos # (Auto) 0.03 (0-0.5) Absolute Lymphs (auto) 0.74 L (1.0-4.6) Absolute Monos (auto) 0.19 (0.0-1.3) Lymphocytes % 9.5 L (24.0-44.0) % Monocytes % 2.4 (0.0-12.0) % Eosinophils % 0.4 (0.00-5.0) % Basophils % 0.3 (0.0-0.4) % Absolute Granulocytes 6.79 (1.4-6.9) Segmented Neutrophils (36.-66.) % Band Neutrophils (0.0-2.0) % Lymphocytes (Manual) (24-44) % Monocytes (Manual) (0.0-12.0) % Eosinophils (Manual) (0.00-3.0) % Basophils # 0.02 (0-0.4) Platelet Estimate (NORMAL) RBC Morphology PT (8.83-12.87) SECONDS INR (0.8-3.0) APTT (24.1-36.1) SECONDS D-Dimer (215-500) ng/mL pO2/FiO2 Ratio % VBG pH (7.32-7.42) VBG pCO2 at Pat Temp (42-55) mm/Hg VBG pO2 at Pat Temp (25-40) mm/Hg VBG HCO3 (22-28) meq/L VBG O2 Sat ([place]) (95-100) VBG Base Excess (-2.0-2.0) VBG Hemoglobin VBG Carboxyhemoglobin (0.0-6.9) % T HGB POC Potassium (3.5-5.1) Sodium 142 (137-145) mmol/L Potassium 4.9 (3.5-5.1) mmol/L Chloride 100 (98-107) mmol/L Carbon Dioxide 32 H (22-30) mmol/L Anion Gap 14.8 (5-15) MEQ/L BUN 24 H (9-20) mg/dL Creatinine 1.09 (0.66-1.25) mg/dL Estimated GFR > 60.0 ML/MIN Glucose 182 H (74-106) mg/dL Calcium 9.3 (8.4-10.2) mg/dL Total Bilirubin 0.40 (0.2-1.3) mg/dL AST 30 (17-59) U/L ALT 30 (0-50) U/L Alkaline Phosphatase 75 (38-126) U/L Troponin I < 0.012 (0.000-0.034) ng/mL NT-Pro-B Natriuret Pep (0-1800) pg/mL Serum Total Protein 7.5 (6.3-8.2) g/dL Albumin 3.9 (3.5-5.0) g/dL Urine Color (YELLOW) Urine Appearance (CLEAR) Urine pH (5-6) Ur Specific [place] (1.005-1.025) Urine Protein (Negative) Urine Ketones (NEGATIVE) Urine Blood (0-5) Will/ul Urine Nitrite (NEGATIVE) Urine Bilirubin (NEGATIVE) Urine Urobilinogen (0-1) mg/dL Ur Leukocyte Esterase (NEGATIVE) Urine WBC (Auto) (0-5) /HPF Urine RBC (Auto) (0-2) /HPF U Epithel Cells (Auto) (FEW) /HPF Urine Bacteria (Auto) (NEGATIVE) /HPF Urine Culture Reflexed (NO) Urine Glucose (NEGATIVE) mg/dL - Radiology Impressions Radiology Exams & Impressions: Radiology Procedures Category Date Time Status CHEST 1 VIEW (PORTABLE) Stat Exams 08/30/18 22:14 Taken - Other Procedures and Tests Respiratory Therapy 08/30/18 22:52 BiPap/CPAP ROUTINE 08/31/18 02:20 Respiratory Therapy Assessment 08/31/18 02:21 Oxygen Nasal Cannula 3 lpm 08/31/18 07:00 Peak Expiratory Flow Rate ONCE Assessment/Plan (1) COPD with exacerbation Current Visit: Yes Status: Acute Assessment & Plan: on rocephin/zithromax, nebs and IV antibiotics Code(s): J44.1 - CHRONIC OBSTRUCTIVE PULMONARY DISEASE W (ACUTE) EXACERBATION (2) Hypercapnia Current Visit: Yes Status: Acute Code(s): R06.89 - OTHER ABNORMALITIES OF BREATHING (3) Acute on chronic systolic (congestive) heart failure Current Visit: Yes Status: Acute Assessment & Plan: bnp elevated above baseline, has signs/symptoms of acute failure. will add iv bumex 1mg bid Code(s): I50.23 - ACUTE ON CHRONIC SYSTOLIC (CONGESTIVE) HEART FAILURE (4) CAD (coronary artery disease) Current Visit: No Status: Acute Code(s): I25.10 - ATHSCL HEART DISEASE OF [place] CORONARY ARTERY W/O ANG PCTRS
[2018-08-31] MEDS: BUMEX 1 MG IV SCH ×2 (09:24→21:32)
[2018-08-31] MEDS ORDERED: SOMA 350 MG PO PRN (09:35)
--- NOTE | 2018-08-31 09:35 | XRAY ---
Indication: Short of breath. Comparison: July 02, 2018. Portable apical lordotic chest less inflated crowding the lung bases again with scattered calcified granulomas. No focal infiltrate, consolidation, or large effusion. Heart is not enlarged again with CABG surgery. No new/acute findings.
[2018-08-31] MEDS ORDERED: ULTRAM 50 MG PO PRN (09:45)
[2018-08-31] MEDS ORDERED: NON-FORMULARY ITEM (Carvedilol [Coreg] 25 MG) PO SCH (10:00)
[2018-08-31] MEDS ORDERED: Zithromax 500 MG/ 250 ML NaCl Premix 500 MG/250 ML IVPB IV SCH (10:00)
[2018-08-31] MEDS: Senokot-S Tablet PO SCH ×2 (10:22→21:34)
[2018-08-31] MEDS: COREG 12.5 MG PO SCH ×2 (10:22→21:32)
[2018-08-31] MEDS: Apresoline 25 MG TABLET PO SCH ×2 (10:22→21:32)
[2018-08-31] MEDS: SYNTHROID 75 MCG PO SCH (10:22)
[2018-08-31] MEDS: Pepcid 20 MG PO SCH ×2 (10:22→21:33)
[2018-08-31] MEDS: NovoLOG Insulin SQ PRN ×3 (11:43→21:35)
[2018-08-31] MEDS: Sodium Chloride 0.9% 10 ML FLUSH Syringe IV SCH ×2 (14:29→21:34)
[2018-08-31] MEDS: PYRIDIUM 200 MG PO SCH ×2 (17:46→21:34)
[2018-08-31] MEDS ORDERED: PREPARATION H Ointment RC PRN (18:49)
[2018-08-31] MEDS ORDERED: NORCO 5/325 MG PO PRN (21:07)
[2018-08-31] MEDS ORDERED: NORCO 5/325 MG ONE (21:10)
[2018-08-31] MEDS: Lantus Insulin SQ SCH (21:33)
[2018-08-31] MEDS: Flomax 0.4 MG PO SCH (21:33)
[2018-08-31] MEDS: XARELTO 10 MG TABLET PO SCH (21:34)
[2018-08-31] MEDS: ROCEPHIN 1 Gm-D5w 50 ml Bag** 1 G/50 ML IVPB IV SCH (21:34)
[2018-08-31] MEDS: ZOCOR 20MG PO SCH (21:34)
[2018-08-31] MEDS ORDERED: Cardizem IV 50 MG/10 ML IV ONE (21:35)
[2018-08-31] MEDS ORDERED: NON-FORMULARY ITEM (Atorvastatin Calcium [Lipitor] 20 MG) PO SCH (22:00)
[2018-08-31] MEDS: Zithromax 500 MG/ 250 ML NaCl Premix 500 MG/250 ML IVPB IV SCH (22:16)
[2018-08-31] MEDS ORDERED: MORPHINE SULFATE 4 MG INJ IV PRN (22:33)
[2018-08-31] MEDS ORDERED: Cyclobenzaprine 10 MG PO PRN (22:34)
[2018-09-01] MEDS: solu-MEDROL 125 MG IV SCH ×4 (04:00→22:34)
[2018-09-01] MEDS: Sodium Chloride 0.9% 10 ML FLUSH Syringe IV SCH ×3 (05:46→21:45)
[2018-09-01 06:11] LABS: BASOPHIL % 0.1 % (0.0-0.4); Basophil (Absolute #) 0.01 (0-0.4); Eosinophil % 0.1 % (0.00-5.0); Eosinophil (Absolute #) 0.01 (0-0.5); Granulocyte Absolute (ANC) 9.25 (1.4-6.9); Granulocytes % 89.3 % (36.0-66.0); Hematocrit 46.6 % (42-50); Hemoglobin 13.8 gm/dl (12.5-18.0); Lymphocytes % 5.8 % (24.0-44.0); Mean Cell Volume 98.1 fl (78-100); Mean Corpuscular Hemoglobin 29.1 pg (26-32); Mean Corpuscular Hgb Concent. 29.6 g/dl (32-36); Mean Platelet Volume 11.6 fl (6-9.5); Monocyte (Absolute #) 0.49 (0.0-1.3); Monocytes % 4.7 % (0.0-12.0); Platelet Count 239 K/mm3 (150-450); Red Blood Count 4.75 M/mm3 (4.1-5.6); White Blood Count 10.4 K/mm3 (4.0-10.5)
[2018-09-01 06:34] LABS: ANION GAP 16.8 MEQ/L (5-15); Calcium 8.5 mg/dL (8.4-10.2); Creatinine 1 1.27 mg/dL (0.66-1.25); Potassium 5.1 mmol/L (3.5-5.1)
[2018-09-01] MEDS: Apresoline 25 MG TABLET PO SCH ×2 (08:00→21:43)
[2018-09-01] MEDS: PYRIDIUM 200 MG PO SCH ×3 (08:00→21:41)
[2018-09-01] MEDS: COREG 12.5 MG PO SCH ×2 (08:00→21:42)
[2018-09-01] MEDS: SYNTHROID 75 MCG PO SCH (08:01)
[2018-09-01] MEDS: BUMEX 1 MG IV SCH ×2 (08:01→21:44)
[2018-09-01] MEDS: Pepcid 20 MG PO SCH ×2 (08:01→21:43)
[2018-09-01] MEDS: Senokot-S Tablet PO SCH ×2 (08:01→21:42)
--- NOTE | 2018-09-01 09:16 | PCM.NOTE ---
Date and Time: 09/01/18914 Subjective Assessment: doing ok - Review of Systems Constitutional: No Fever, No Chills Eyes: No Symptoms Ears, Nose, & Throat: No Symptoms Respiratory: No Cough, No Short Of Breath Cardiac: No Chest Pain, No Edema, No Syncope Abdominal/Gastrointestinal: No Abdominal Pain, No Nausea, No Vomiting, No Diarrhea Genitourinary Symptoms: No Dysuria Musculoskeletal: No Back Pain, No Neck Pain Skin: No Rash Neurological: No Dizziness, No Focal Weakness, No Sensory Changes Psychological: No Symptoms Endocrine: No Symptoms Hematologic/Lymphatic: No Symptoms Immunological/Allergic: No Symptoms OBJECTIVE DATA Vital Signs: Vital Signs - 24 hr Temp Pulse Resp BP Pulse Ox 09/01/18 08:00 97.9 F 114 H 18 183/100 97 09/01/18 05:58 14 09/01/18 04:00 96.2 F 120 H 14 171/98 99 09/01/18 02:00 26 H 09/01/18 00:00 98.2 F 119 H 26 H 157/92 92 L 08/31/18 22:00 28 H 08/31/18 20:00 98.3 F 117 H 28 H 146/95 92 L 08/31/18 15:56 98.3 F 118 H 18 176/87 94 L 08/31/18 11:46 98.2 F 119 H 18 135/82 93 L 08/31/18 10:12 122 H 20 95 Oxygen-Last 24 hours O2 Percentage 4 Liters = 36% O2 Percentage 50% O2 Percentage 50% O2 Percentage 3 Liters = 32% O2 Percentage 4 Liters = 36% O2 Percentage 4 Liters = 36% Oxygen Flowrate (L/min)-RT 50 Pain Assessment - Last Documented Pain Intensity 5 Pain Scale Used 0-10 Pain Scale Intake and Output: Intake & Output 08/29/18 08/30/18 08/31/18 09/01/18 11:59 11:59 11:59 11:59 Intake Total 100 450 Output Total 1375 200 Balance -1275 250 Weight 175.9 kg 176.1 kg Lab Results: Accuchecks Accucheck Value: 235 Accucheck Value: 420 Accucheck Value: 259 Accucheck Value: 245 Lab Results-Last 24 Hours 08/31/18 09/01/18 09/01/18 Range/Units 10:14 05:25 05:25 WBC 10.4 (4.0-10.5) K/mm3 RBC 4.75 (4.1-5.6) M/mm3 Hgb 13.8 (12.5-18.0) gm/dl Hct 46.6 (42-50) % MCV 98.1 (78-100) fl MCH 29.1 (26-32) pg MCHC 29.6 L (32-36) g/dl RDW 15.0 H (11.5-14.0) % Plt Count 239 (150-450) K/mm3 MPV 11.6 H (6-9.5) fl Gran % 89.3 H (36.0-66.0) % Eos # (Auto) 0.01 (0-0.5) Absolute Lymphs (auto) 0.60 L (1.0-4.6) Absolute Monos (auto) 0.49 (0.0-1.3) Lymphocytes % 5.8 L (24.0-44.0) % Monocytes % 4.7 (0.0-12.0) % Eosinophils % 0.1 (0.00-5.0) % Basophils % 0.1 (0.0-0.4) % Absolute Granulocytes 9.25 H (1.4-6.9) Basophils # 0.01 (0-0.4) Sodium 138 (137-145) mmol/L Potassium 5.1 (3.5-5.1) mmol/L Chloride 95 L (98-107) mmol/L Carbon Dioxide 31 H (22-30) mmol/L Anion Gap 16.8 H (5-15) MEQ/L BUN 35 H (9-20) mg/dL Creatinine 1.27 H (0.66-1.25) mg/dL Estimated GFR 58.4 ML/MIN Glucose 261 H (74-106) mg/dL Calcium 8.5 (8.4-10.2) mg/dL Troponin I < 0.012 (0.000-0.034) ng/mL NT-Pro-B Natriuret Pep 4490 H (0-1800) pg/mL Radiology Exams: Radiology Procedures Category Date Time Status CHEST 1 VIEW (PORTABLE) Stat Exams 08/30/18 22:14 Completed Assessment/Plan (1) CAD (coronary artery disease) Current Visit: No Status: Acute Code(s): I25.10 - ATHSCL HEART DISEASE OF [place] CORONARY ARTERY W/O ANG PCTRS (2) CHF (congestive heart failure), NYHA class IV Current Visit: No Status: Acute Code(s): I50.9 - HEART FAILURE, UNSPECIFIED (3) COPD (chronic obstructive pulmonary disease) with chronic bronchitis Current Visit: No Status: Acute Code(s): J44.9 - CHRONIC OBSTRUCTIVE PULMONARY DISEASE, UNSPECIFIED (4) Cor pulmonale (chronic) Current Visit: No Status: Acute Code(s): I27.81 - COR PULMONALE (CHRONIC) (5) Sinus tachycardia Current Visit: No Status: Acute Code(s): R00.0 - TACHYCARDIA, UNSPECIFIED
[2018-09-01] MEDS: DUONEB 0.5-3 MG/3 ml Neb IH PRN (09:22)
[2018-09-01] MEDS: NovoLOG Insulin SQ PRN ×2 (17:22→22:04)
[2018-09-01] MEDS: ROCEPHIN 1 Gm-D5w 50 ml Bag** 1 G/50 ML IVPB IV SCH (21:40)
[2018-09-01] MEDS: Lantus Insulin SQ SCH (21:41)
[2018-09-01] MEDS: Flomax 0.4 MG PO SCH (21:42)
[2018-09-01] MEDS: XARELTO 10 MG TABLET PO SCH (21:43)
[2018-09-01] MEDS: ZOCOR 20MG PO SCH (21:44)
[2018-09-01] MEDS: Zithromax 500 MG/ 250 ML NaCl Premix 500 MG/250 ML IVPB IV SCH (22:34)
[2018-09-01] MEDS ORDERED: Robitussin AC Syrup Unit Dose Cup PO PRN (22:48)
[2018-09-02] MEDS: DUONEB 0.5-3 MG/3 ml Neb IH PRN (03:18)
[2018-09-02] MEDS: Sodium Chloride 0.9% 10 ML FLUSH Syringe IV SCH ×3 (04:01→21:21)
[2018-09-02] MEDS: solu-MEDROL 125 MG IV SCH ×4 (04:01→22:02)
[2018-09-02] MEDS: Apresoline 25 MG TABLET PO SCH ×2 (07:47→21:21)
[2018-09-02] MEDS: COREG 12.5 MG PO SCH ×2 (07:47→21:20)
[2018-09-02] MEDS: SYNTHROID 75 MCG PO SCH (07:47)
[2018-09-02] MEDS: PYRIDIUM 200 MG PO SCH ×3 (07:48→21:20)
[2018-09-02] MEDS: Senokot-S Tablet PO SCH ×2 (07:48→21:20)
[2018-09-02] MEDS: Pepcid 20 MG PO SCH ×2 (07:48→21:20)
[2018-09-02] MEDS: BUMEX 1 MG IV SCH ×2 (10:45→19:47)
[2018-09-02] MEDS ORDERED: CITROMA 296 ML PO ONE (13:17)
--- NOTE | 2018-09-02 13:26 | PCM.NOTE ---
Date and Time: 09/02/18 1324 Subjective Assessment: doing ok - Review of Systems Constitutional: No Fever, No Chills Eyes: No Symptoms Ears, Nose, & Throat: No Symptoms Respiratory: Cough, Orthopnea, Short Of Breath, Wheezing Cardiac: No Chest Pain, No Edema, No Syncope Abdominal/Gastrointestinal: No Abdominal Pain, No Nausea, No Vomiting, No Diarrhea Genitourinary Symptoms: No Dysuria Musculoskeletal: No Back Pain, No Neck Pain Skin: No Rash Neurological: No Dizziness, No Focal Weakness, No Sensory Changes Psychological: No Symptoms Endocrine: No Symptoms Hematologic/Lymphatic: No Symptoms Immunological/Allergic: No Symptoms Objective Exam General Appearance: no apparent distress, alert Neurologic Exam: alert, oriented x 3, cooperative, normal mood/affect, nml cerebellar function, sensation nml, No motor deficits Skin Exam: normal color, warm, dry Eye Exam: PERRL, EOMI, eyes nml inspection Ears, Nose, Throat Exam: normal ENT inspection, pharynx normal, moist mucous membranes Neck Exam: normal inspection, non-tender, supple, full range of motion Respiratory Exam: diminished breath sounds, crackles/rales, rhonchi, No respiratory distress Cardiovascular Exam: regular rate/rhythm, normal heart sounds Gastrointestinal/Abdomen Exam: soft, No tenderness, No mass Extremity Exam: normal inspection, normal range of motion Back Exam: normal inspection, normal range of motion, No CVA tenderness, No vertebral tenderness Male Genitalia Exam: deferred Rectal Exam: deferred OBJECTIVE DATA Vital Signs: Vital Signs - 24 hr Temp Pulse Resp BP Pulse Ox 09/02/18 11:59 98.3 F 123 H 18 132/76 96 09/02/18 10:00 18 09/02/18 07:22 98.1 F 119 H 20 176/107 98 09/02/18 04:05 97.7 F 120 H 21 132/85 98 09/02/18 03:10 118 H 20 93 L 09/02/18 00:17 98.1 F 123 H 28 H 136/97 97 09/01/18 20:55 93 L 09/01/18 20:00 98.7 F 117 H 32 H 169/101 96 09/01/18 16:00 98.4 F 123 H 18 159/80 94 L Oxygen-Last 24 hours O2 Percentage 4 Liters = 36% O2 Percentage 4 Liters = 36% O2 Percentage 6 Liters = 44% O2 Percentage 4 Liters = 36% O2 Percentage 3 Liters = 32% O2 Percentage 4 Liters = 36% Pain Assessment - Last Documented Pain Intensity 0 Pain Scale Used FLACC Intake and Output: Intake & Output 08/31/18 09/01/18 09/02/18 09/03/18 11:59 11:59 11:59 11:59 Intake Total 100 450 580 Output Total 8516 919 1207 Balance -1275 250 -745 Weight 175.9 kg 176.1 kg 175.8 kg Lab Results: Accuchecks Date 09/02/18 Date 09/02/18 Date 09/01/18 Time 12:55 Time 07:30 Time 21:20 Accucheck Value: 199 Accucheck Value: 300 Assessment/Plan (1) CAD (coronary artery disease) Current Visit: No Status: Acute Qualifiers: Coronary Disease-Associated Artery/Lesion type: [place] artery [place] vs. transplanted heart: [place] heart Associated angina: without angina Qualified Code(s): I25.10 - Atherosclerotic heart disease of [place] coronary artery without angina pectoris Code(s): I25.10 - ATHSCL HEART DISEASE OF [place] CORONARY ARTERY W/O ANG PCTRS (2) CHF (congestive heart failure), NYHA class IV Current Visit: Yes Status: Chronic Qualifiers: Congestive heart failure type: combined Congestive heart failure chronicity : acute on chronic Qualified Code(s): I50.43 - Acute on chronic combined systolic (congestive) and diastolic (congestive) heart failure Code(s): I50.9 - HEART FAILURE, UNSPECIFIED (3) COPD (chronic obstructive pulmonary disease) with chronic bronchitis Current Visit: Yes Status: Chronic Code(s): J44.9 - CHRONIC OBSTRUCTIVE PULMONARY DISEASE, UNSPECIFIED (4) Cor pulmonale (chronic) Current Visit: Yes Status: Chronic Code(s): I27.81 - COR PULMONALE (CHRONIC ) (5) Sinus tachycardia Current Visit: No Status: Acute Code(s): R00.0 - TACHYCARDIA, UNSPECIFIED (6) Atrial fibrillation and flutter Current Visit: Yes Status: Acute Code(s): I48.91 - UNSPECIFIED ATRIAL FIBRILLATION; I48.92 - UNSPECIFIED ATRIAL FLUTTER
[2018-09-02] MEDS ORDERED: TYLENOL 325 MG PO PRN (13:31)
[2018-09-02] MEDS: Cardizem CD 120 MG PO SCH (14:54)
[2018-09-02] MEDS: NovoLOG Insulin SQ PRN ×2 (18:46→21:19)
[2018-09-02] MEDS: ROCEPHIN 1 Gm-D5w 50 ml Bag** 1 G/50 ML IVPB IV SCH (21:18)
[2018-09-02] MEDS: Lantus Insulin SQ SCH (21:18)
[2018-09-02] MEDS: Flomax 0.4 MG PO SCH (21:20)
[2018-09-02] MEDS: XARELTO 10 MG TABLET PO SCH (21:21)
[2018-09-02] MEDS: DULCOLAX 5 MG PO SCH (21:21)
[2018-09-02] MEDS ORDERED: Zocor 10MG PO SCH (22:00)
[2018-09-02] MEDS: Zithromax 500 MG/ 250 ML NaCl Premix 500 MG/250 ML IVPB IV SCH (22:02)
[2018-09-03 04:55] LABS: Hematocrit 48.3 % (42-50); Hemoglobin 14.6 gm/dl (12.5-18.0); Mean Corpuscular Hemoglobin 29.3 pg (26-32); Mean Corpuscular Hgb Concent. 30.2 g/dl (32-36); Mean Platelet Volume 11.3 fl (6-9.5); Platelet Count 215 K/mm3 (150-450); Red Blood Count 4.98 M/mm3 (4.1-5.6); Red Cell Distribution Width 14.9 % (11.5-14.0); White Blood Count 11.6 K/mm3 (4.0-10.5)
[2018-09-03 05:16] LABS: ALBUMIN 3.3 g/dL (3.5-5.0); ALKALINE PHOSPHATASE 65 U/L (38-126); BLOOD UREA NITROGEN 44 mg/dL (9-20); CHLORIDE 93 mmol/L (98-107); Calcium 8.8 mg/dL (8.4-10.2); Creatinine 1 1.15 mg/dL (0.66-1.25); Glucose 248 mg/dL (74-106); Potassium 4.8 mmol/L (3.5-5.1); SGOT/AST 46 U/L (17-59); SGPT/ALT 61 U/L (0-50); SODIUM 140 mmol/L (137-145); Total Protein 6.5 g/dL (6.3-8.2)
[2018-09-03 05:23] LABS: Carbon Dioxide 40 mmol/L (22-30)
[2018-09-03] MEDS: Sodium Chloride 0.9% 10 ML FLUSH Syringe IV SCH ×2 (05:31→14:41)
[2018-09-03] MEDS: solu-MEDROL 125 MG IV SCH ×2 (05:31→11:13)
[2018-09-03 05:44] LABS: ANION GAP 91.8 MEQ/L (5-15)
[2018-09-03 07:19] LABS: BAND 7 % (0.0-2.0); Lymphocytes 7 % (24-44); Monocyte 1 % (0.0-12.0); Neutrophils 85 % (36.-66.); Platelet Estimate NORMAL (NORMAL); Total Cells Counted 100; Toxic Granulation 1+
[2018-09-03] MEDS: SYNTHROID 75 MCG PO SCH (08:19)
[2018-09-03] MEDS: Pepcid 20 MG PO SCH (08:19)
[2018-09-03] MEDS: PYRIDIUM 200 MG PO SCH ×2 (08:19→14:38)
[2018-09-03] MEDS: Apresoline 25 MG TABLET PO SCH (08:20)
[2018-09-03] MEDS: Cardizem CD 120 MG PO SCH (08:20)
[2018-09-03] MEDS: COREG 12.5 MG PO SCH (08:20)
[2018-09-03] MEDS: DULCOLAX 5 MG PO SCH (08:20)
[2018-09-03] MEDS: Senokot-S Tablet PO SCH (08:20)
[2018-09-03] MEDS: BUMEX 1 MG IV SCH (08:21)
[2018-09-03] MEDS: NovoLOG Insulin SQ PRN ×2 (08:21→12:12)
--- NOTE | 2018-09-03 12:06 | PCM.DS ---
Discharge Summary Date of Admission: 08/31/18 08:20 Admitting Physician: QASIM DE LA PAZ Primary Care Provider: QASIM DE LA PAZ Allergies Allergies nadolol [From Corgard] Allergy (Mild, Verified 08/31/18 02:57) hydromorphone HCl [From Dilaudid] Allergy (Verified 08/31/18 02:57) metoclopramide [From Reglan] Adverse Reaction (Verified 08/31/18 02:57) Hospital Summary - Hospital Course Hospital Course: Chief Complaint Diagnosis COPD,CHF Allergies Allergy/AdvReac Type Severity Reaction Status Date / Time nadolol [From Corgard] Allergy Mild Verified 08/31/18 02:57 hydromorphone HCl Allergy Verified 08/31/18 02:57 [From Dilaudid] metoclopramide [From Reglan] AdvReac Verified 08/31/18 02:57 Vital Signs (Last 24 hours) Temp Pulse Resp BP Pulse Ox 09/03/18 10:00 17 09/03/18 09:12 94 L 09/03/18 08:00 97 F 117 H 17 179/93 98 09/03/18 04:00 97.4 F 116 H 22 142/71 99 09/03/18 00:04 98.1 F 116 H 20 105/58 98 09/02/18 23:46 92 L 09/02/18 20:04 119 H 22 92 L 09/02/18 20:00 98.2 F 118 H 22 129/95 92 L 09/02/18 18:00 20 09/02/18 16:39 98.4 F 88 20 134/88 95 09/02/18 14:00 20 Current Medications Generic Name Dose Route Start Last Admin Trade Name Freq PRN Reason Stop Dose Admin Acetaminophen 650 mg 09/02/18 13:31 Tylenol 325 Mg PO 10/02/18 13:30 Q4H PRN PRN PAIN AND/OR FEVER Albuterol/Ipratropium 3 ml 08/31/18 02:04 09/02/18 03:18 Duoneb 0.5-3 Mg/3 Ml Neb IH 09/30/18 02:03 3 ml Q4HPRN PRN Administration SHORTNESS OF BREATH/WHEEZING Bisacodyl 10 mg 09/02/18 22:00 09/03/18 08:20 Dulcolax 5 Mg PO 10/02/18 21:59 Not Given BID FABIANA Bumetanide 1 mg 08/31/18 10:00 09/03/18 08:21 Bumex 1 Mg IV 09/30/18 09:59 1 mg Q12HT FABIANA Administration Carisoprodol 350 mg 08/31/18 09:35 08/31/18 10:26 Soma 350 Mg PO 09/30/18 09:34 350 mg TID PRN PRN Administration PAIN Carvedilol 25 mg 08/31/18 10:00 09/03/18 08:20 Coreg 12.5 Mg PO 09/30/18 09:59 25 mg BID FABIANA Administration Cyclobenzaprine HCl 10 mg 08/31/18 22:34 08/31/18 22:44 Cyclobenzaprine 10 Mg PO 09/30/18 22:33 10 mg QID PRN PRN Administration MUSCLE SPASMS Diltiazem HCl 120 mg 09/02/18 14:00 09/03/18 08:20 Cardizem Cd 120 Mg PO 10/02/18 13:59 120 mg DAILY FABIANA Administration Famotidine 40 mg 08/31/18 10:00 09/03/18 08:19 Pepcid 20 Mg PO 09/30/18 09:59 40 mg BID FABIANA Administration Guaifenesin/Codeine Phosphate 5 ml 09/01/18 22:48 Robitussin Ac Syrup Unit Dose Cup PO 10/01/18 22:47 Q6H PRN PRN COUGH Hydralazine HCl 50 mg 08/31/18 10:00 09/03/18 08:20 Apresoline 25 Mg Tablet PO 09/30/18 09:59 50 mg BID FABIANA Administration Ceftriaxone Sodium/Dextrose 1 g in 50 mls @ 100 mls/hr 08/31/18 22:00 21:18 Rocephin 1 Gm-D5w 50 Ml Bag IV 09/30/18 21:59 100 mls/hr Q24H22 FABIANA Administration Azithromycin 500 mg in 250 mls @ 250 mls/hr 08/31/18 22:00 09/02/18 22:02 Zithromax 500 Mg/ 250 Ml Nacl Premix IV 09/30/18 21:59 250 mls/hr Q24H22 FABIANA Administration Insulin Aspart 0 unit 08/31/18 02:04 09/03/18 08:21 Novolog Insulin SQ 09/30/18 02:03 2 unit UD PRN Administration HYPERGLYCEMIA Insulin Glargine 55 unit 08/31/18 22:00 09/02/18 21:18 Lantus Insulin SQ 09/30/18 21:59 55 unit HS FABIANA Administration Levothyroxine Sodium 75 mcg 08/31/18 10:00 09/03/18 08:19 Synthroid 75 Mcg PO 09/30/18 09:59 75 mcg DAILY FABIANA Administration Methylprednisolone Sodium Succinate 80 mg 08/31/18 05:00 09/03/18 11:13 Solu-Medrol 125 Mg IV 09/30/18 04:59 80 mg Q6H FABIANA Administration Morphine Sulfate 4 mg 08/31/18 22:33 08/31/18 22:43 Morphine Sulfate 4 Mg Inj IV 09/05/18 22:32 4 mg Q4H PRN PRN Administration PAIN Phenazopyridine HCl 200 mg 08/31/18 18:00 09/03/18 08:19 Pyridium 200 Mg PO 09/30/18 17:59 200 mg TID FABIANA Administration Phenyleph/Shark Oil/Min Oil/Petrol 1 gm 08/31/18 18:49 09/02/18 11:09 Preparation H Ointment RC 09/30/18 18:59 1 gm TIDPRN PRN Administration HEMORRHOIDS Rivaroxaban 20 mg 08/31/18 22:00 09/02/18 21:21 Xarelto 10 Mg Tablet PO 09/30/18 21:59 20 mg HS FABIANA Administration Senna/Docusate Sodium 1 udtab 08/31/18 10:00 09/03/18 08:20 Senokot-S Tablet PO 09/30/18 09:59 Not Given BID FABIANA Simvastatin 10 mg 09/02/18 22:00 09/02/18 21:21 Zocor 10mg PO 10/02/18 21:59 10 mg HS FABIANA Administration Sodium Chloride 10 ml 08/31/18 14:00 09/03/18 05:31 Sodium Chloride 0.9% 10 Ml Flush Syringe IV 09/30/18 13:59 10 ml Q8HT FABIANA Administration Tamsulosin HCl 0.4 mg 08/31/18 22:00 09/02/18 21:20 Flomax 0.4 Mg PO 09/30/18 21:59 0.4 mg HS FABIANA Administration Discontinued Medications Generic Name Dose Route Start Last Admin Trade Name Freq PRN Reason Stop Dose Admin Hydrocodone Bitart/Acetaminophen 1 tab 08/31/18 21:07 08/31/18 21:12 Morris 5/325 Mg PO 09/05/18 21:06 1 tab Q4H PRN PRN Administration PAIN Hydrocodone Bitart/Acetaminophen Confirm 08/31/18 21:10 Morris 5/325 Mg Administered 08/31/18 21:11 Dose 1 tab .ROUTE .STK-MED ONE Albuterol Sulfate 2.5 mg 08/30/18 22:19 08/30/18 22:24 Proventil 2.5 Mg/3 Ml Neb IH 08/30/18 22:20 2.5 mg STAT ONE Administration Albuterol Sulfate Confirm 08/30/18 22:19 Proventil 2.5 Mg/3 Ml Neb Administered 08/30/18 22:20 Dose 2.5 mg IH .STK-MED ONE Diltiazem HCl 10 mg 08/31/18 21:35 08/31/18 21:45 Cardizem Iv 50 Mg/10 Ml IV 08/31/18 21:36 10 mg STAT ONE Administration Ceftriaxone Sodium/Dextrose 1 g in 50 mls @ 100 mls/hr 08/31/18 00:47 01:33 Rocephin 1 Gm-D5w 50 Ml Bag IV 08/31/18 01:16 Infused STAT STA Infusion Ceftriaxone Sodium/Dextrose Confirm 08/31/18 00:51 Rocephin 1 Gm-D5w 50 Ml Bag Administered 08/31/18 00:52 Dose 1 g in 50 mls @ ud IV .STK-MED ONE Azithromycin 500 mg in 250 mls @ 250 mls/hr 08/31/18 10:00 08/31/18 02:21 Zithromax 500 Mg/ 250 Ml Nacl Premix IV 09/30/18 09:59 250 mls/hr Q24H10 FABIANA Administration Magnesium Citrate 296 ml 09/02/18 13:17 09/02/18 14:54 Citroma 296 Ml PO 09/02/18 13:18 296 ml STAT ONE Administration Methylprednisolone Sodium Succinate 125 mg 08/30/18 22:19 08/30/18 22:44 Solu-Medrol 125 Mg IV 08/30/18 22:20 125 mg STAT ONE Administration Methylprednisolone Sodium Succinate Confirm 08/30/18 22:42 Solu-Medrol 125 Mg Administered 08/30/18 22:43 Dose 125 mg .ROUTE .STK-MED ONE Methylprednisolone Sodium Succinate 80 mg 08/31/18 02:04 08/31/18 10:26 Solu-Medrol 125 Mg IV 09/30/18 02:03 Not Given Q6H FABIANA Simvastatin 20 mg 08/31/18 22:00 09/01/18 21:44 Zocor 20mg PO 09/30/18 21:59 20 mg HS FABIANA Administration Tramadol HCl 50 mg 08/31/18 09:45 08/31/18 17:46 Ultram 50 Mg PO 09/30/18 09:44 50 mg BID PRN PRN Administration Intake & Output (Last 24 hours) 09/01/18 09/02/18 09/03/18 09/04/18 11:59 11:59 11:59 11:59 Intake Total 450 580 296 Output Total 200 1325 1025 Balance 778 -052 -994 Weight 176.1 kg 175.8 kg 171.4 kg Laboratory Results (Last 24 hours) 09/03/18 09/03/18 09/03/18 04:40 04:40 04:40 WBC 11.6 H RBC 4.98 Hgb 14.6 Hct 48.3 MCV 97.0 MCH 29.3 MCHC 30.2 L RDW 14.9 H Plt Count 215 MPV 11.3 H Segmented Neutrophils 85 H Band Neutrophils 7 H Lymphocytes (Manual) 7 L Monocytes (Manual) 1 Toxic Granulation 1+ Platelet Estimate NORMAL RBC Morphology NORMAL Sodium 140 Potassium 4.8 Chloride 93 L Carbon Dioxide 40 H Anion Gap 91.8 H BUN 44 H Creatinine 1.15 Estimated GFR > 60.0 Glucose 248 H Calcium 8.8 Total Bilirubin 0.40 AST 46 ALT 61 H Alkaline Phosphatase 65 NT-Pro-B Natriuret Pep 1260 Serum Total Protein 6.5 Albumin 3.3 L Orders (Last 24 hours) Category Date Time Status BNP [NT PRO BNP] AM.LAB Lab 09/03/18 04:40 Completed CBC W DIFF AM.LAB Lab 09/03/18 04:40 Completed CMP AM.LAB Lab 09/03/18 04:40 Completed Manual Differential NC Routine Lab 09/03/18 04:40 Completed Acetaminophen 325 mg [Tylenol 325 mg] Med 09/02/18 13:31 Active 650 mg PO Q4H PRN PRN Bisacodyl 5 mg [Dulcolax 5 mg] Med 09/02/18 22:00 Active 10 mg PO BID Diltiazem HCl 120 mg [Cardizem CD 120 MG] Med 09/02/18 14:00 Active 120 mg PO DAILY Magnesium Citrate 296 ml [Citroma 296 ml] Med 09/02/18 13:17 Discontinued 296 ml PO STAT ONE Simvastatin 10 mg [Zocor 10MG] Med 09/02/18 22:00 Active 10 mg PO HS Patient Care Notes (Last 24 hours) 09/02/18 13:44 Pharmacy Note by Benoit Kong Please be aware of possible drug interaction with Xarelto and Cardizem in patients with poor renal function. Creatinine up today to 1.27. Increased risk of bleeding. Initialized on 09/02/18 13:44 - END OF NOTE 09/02/18 13:43 Pharmacy Note by Benoit Kong Zocor will be reduced to 10mg at bedtime since Cardizem has been started to prevent drug interaction. Initialized on 09/02/18 13:43 - END OF NOTE 09/02/18 13:27 Respiratory Note by Princess Isabel 09/03/18 1330 Patient saturation on room air at rest was 87% with heartrate 131 rr 22. Saturation on 4lpm n/c 94% at rest. elle Initialized on 09/02/18 13:27 - END OF NOTE - Vitals & Intake/Output Vital Signs: Vital Signs Temperature 97 F 09/03/18 08:00 Pulse Rate 117 H 09/03/18 08:00 Respiratory Rate 17 09/03/18 10:00 Blood Pressure 179/93 09/03/18 08:00 O2 Sat by Pulse Oximetry 94 L 09/03/18 09:12 Oxygen-Last Documented O2 Percentage 40% Intake & Output: Intake & Output 09/01/18 09/02/18 09/03/18 09/04/18 11:59 11:59 11:59 11:59 Intake Total 450 580 296 Output Total 200 1325 1025 Balance 746 -853 -433 Weight 176.1 kg 175.8 kg 171.4 kg - Lab Result Diagrams: 09/03/18 04:40 09/03/18 04:40 Lab Results-Last 24 Hrs: Accuchecks Date 09/03/18 Date 09/02/18 Time 07:30 Time 16:30 Accucheck Value: 228 Accucheck Value: 355 Accucheck Value: 290 Lab Results-Last 24 Hours 09/03/18 09/03/18 09/03/18 Range/Units 04:40 04:40 04:40 WBC 11.6 H (4.0-10.5) K/mm3 RBC 4.98 (4.1-5.6) M/mm3 Hgb 14.6 (12.5-18.0) gm/dl Hct 48.3 (42-50) % MCV 97.0 (78-100) fl MCH 29.3 (26-32) pg MCHC 30.2 L (32-36) g/dl RDW 14.9 H (11.5-14.0) % Plt Count 215 (150-450) K/mm3 MPV 11.3 H (6-9.5) fl Segmented Neutrophils 85 H (36.-66.) % Band Neutrophils 7 H (0.0-2.0) % Lymphocytes (Manual) 7 L (24-44) % Monocytes (Manual) 1 (0.0-12.0) % Toxic Granulation 1+ Platelet Estimate NORMAL (NORMAL) RBC Morphology NORMAL Sodium 140 (137-145) mmol/L Potassium 4.8 (3.5-5.1) mmol/L Chloride 93 L (98-107) mmol/L Carbon Dioxide 40 H (22-30) mmol/L Anion Gap 91.8 H (5-15) MEQ/L BUN 44 H (9-20) mg/dL Creatinine 1.15 (0.66-1.25) mg/dL Estimated GFR > 60.0 ML/MIN Glucose 248 H (74-106) mg/dL Calcium 8.8 (8.4-10.2) mg/dL Total Bilirubin 0.40 (0.2-1.3) mg/dL AST 46 (17-59) U/L ALT 61 H (0-50) U/L Alkaline Phosphatase 65 (38-126) U/L NT-Pro-B Natriuret Pep 1260 (0-1800) pg/mL Serum Total Protein 6.5 (6.3-8.2) g/dL Albumin 3.3 L (3.5-5.0) g/dL Micro Results-Entire Visit: Microbiology 08/30/18 22:53 Urine Culture - Final Catherized NO GROWTH Accuchecks Date 09/03/18 Date 09/02/18 Time 07:30 Time 16:30 Accucheck Value: 228 Accucheck Value: 355 Accucheck Value: 290 - Procedures and Test Procedures and Tests throughout Hospitalization: Therapy Orders & Screens 08/30/18 22:25 Respiratory Therapy Assessment DAILY Comment: 08/30/18 22:52 BiPap/CPAP ROUTINE Comment: 08/31/18 02:04 Respiratory Therapy Consult Comment: Reason For Exam: 08/31/18 02:20 Respiratory Therapy Assessment Comment: 08/31/18 02:21 Oxygen Nasal Cannula 3 lpm Comment: 08/31/18 02:49 RT Screen per Nursing Assess Comment: Protocol Order Physician Instructions: Greater than 3 points order RT Admission Screen Reason For Exam: Triggered on Admission Diagnosis: SOB; Exac of COPD; Hypercapnea Diagnosis: SOB; Exac of COPD; Hypercapnea Pneumonia: No Home O2: Yes Asthma: No CHF: Yes Home CPAP/BIPAP: No Home Nebs/MDI: No Total Points: 8 08/31/18 07:00 Peak Expiratory Flow Rate ONCE Comment: Reason For Exam: Diagnosis: SOB; Exac of COPD; Hypercapnea 09/01/18 14:41 RT Miscellaneous Order ROUTINE Comment: Physician Instructions: Reason For Exam: Diagnosis: COPD,CHF Discharge Exam General Appearance: no apparent distress, alert Neurologic Exam: alert, oriented x 3, cooperative, normal mood/affect, nml cerebellar function, sensation nml, No motor deficits Eye Exam: PERRL, EOMI, eyes nml inspection Ears, Nose, Throat Exam: normal ENT inspection, pharynx normal, moist mucous membranes Neck Exam: normal inspection, non-tender, supple, full range of motion Respiratory Exam: diminished breath sounds, No respiratory distress Cardiovascular Exam: regular rate/rhythm, normal heart sounds Gastrointestinal/Abdomen Exam: soft, No tenderness, No mass Male Genitalia Exam: deferred Rectal Exam: deferred Back Exam: normal inspection, normal range of motion, No CVA tenderness, No vertebral tenderness Extremity Exam: normal inspection, normal range of motion Skin Exam: normal color, warm, dry Final Diagnosis/Problem List - Final Discharge Diagnosis/Problem (1) COPD (chronic obstructive pulmonary disease) with chronic bronchitis Current Visit: Yes Status: Chronic Assessment & Plan: resolved, patient will require oxygen at 3 liter of nasal cannula Code(s): J44.9 - CHRONIC OBSTRUCTIVE PULMONARY DISEASE, UNSPECIFIED (2) CAD (coronary artery disease) Current Visit: Yes Status: Chronic Code(s): I25.10 - ATHSCL HEART DISEASE OF OSAGE CORONARY ARTERY W/O ANG PCTRS (3) CHF (congestive heart failure), NYHA class IV Current Visit: Yes Status: Chronic Code(s): I50.9 - HEART FAILURE, UNSPECIFIED (4) Cor pulmonale (chronic) Current Visit: Yes Status: Chronic Code(s): I27.81 - COR PULMONALE (CHRONIC ) (5) Sinus tachycardia Current Visit: No Status: Acute Code(s): R00.0 - TACHYCARDIA, UNSPECIFIED (6) Atrial fibrillation and flutter Current Visit: Yes Status: Chronic Code(s): I48.91 - UNSPECIFIED ATRIAL FIBRILLATION; I48.92 - UNSPECIFIED ATRIAL FLUTTER - Discharge Discharge Date: 09/03/18 Disposition: Home, Self-Care Condition: Stable Prescriptions: New Diltiazem HCl 120 mg [Cardizem CD 120 MG] 120 mg PO DAILY #30 cap.sr.24h Continue Sennosides/Docusate Sodium [Senna-Docusate Sodium Tablet] 8.5 mg PO BID Sitagliptin Phosphate [Januvia] 50 mg PO BID Levothyroxine Sodium 75 Mcg [Synthroid 75 Mcg] 75 mcg PO DAILY Glipizide 10 mg [Glucotrol 10 MG] 10 mg PO BID Famotidine 20 mg [Pepcid 20 MG] 40 mg PO BID Tamsulosin HCl [Flomax] 0.4 mg PO HS Rivaroxaban [Xarelto] 20 mg PO HS Hydralazine HCl 50 mg PO BID Tramadol HCl [Ultram] 50 mg PO BID PRN Carisoprodol 350 mg PO TID PRN PRN PRN Reason: Pain Insulin Glargine [Lantus Insulin] 55 unit SQ HS Carvedilol [Coreg] 25 mg PO BID Atorvastatin Calcium [Lipitor] 20 mg PO HS Bumetanide [Bumex] 2 mg PO DAILY #0 Additional Instructions: patient requires oxygen 3 liters thru nasal cannula Follow up with: QASIM DE LA PAZ MD [Primary Care Provider] - 1 Week
[2018-09-03 15:44] VITALS: BP 146/94; PULSE 119; O2SAT 94
== END 2018-09-03 16:20 | disposition home or self-care (01) | DRG 191 ==
LOC: ED 22:11 → MED SURG 08-31 01:59 → OBSVTOIN 08-31 08:20
PROVIDERS: ADMIT General Practice; ATTEND General Practice
DX: J44.9 Chronic obstructive pulmonary disease, unspecified (principal); I48.92 Unspecified atrial flutter; I10 Essential (primary) hypertension; E11.9 Type 2 diabetes mellitus without complications; I50.9 Heart failure, unspecified; I27.81 Cor pulmonale (chronic); R00.0 Tachycardia, unspecified; I48.91 Unspecified atrial fibrillation; R60.0 Localized edema; Z79.4 Long term (current) use of insulin; Z79.899 Other long term (current) drug therapy; I25.10 Atherosclerotic heart disease of native coronary artery without angina pectoris; Z95.1 Presence of aortocoronary bypass graft
CPT/HCPCS: 36000; 36415; 51702; 71045; 80048; 80053; 81001; 82805; 82962; 83880; 84484; 85025; 85379; 85610; 85730; 87086; 93005; 93041; 94002; 94003; 94640; 94760; 94762; 96365; 96374; 99285; J0456; J0696; J2270; J2930; J7609; A9270-GY

== ENCOUNTER 2018-09-10 09:38 | Emergency (ER) | payer MEDICARE, BC ==
[2018-09-10] MEDS ORDERED: solu-MEDROL 125 MG IV ONE (09:43)
[2018-09-10] MEDS ORDERED: PROVENTIL 2.5 MG/3 ML NEB IH ONE (09:49)
[2018-09-10 09:51] LABS: A-aADO2 102; ABG HEMOGLOBIN 14.8; ABG POTASSIUM 5.3 (3.5-5.1); ARTERIAL BLD GAS O2 SATURATION 99.6 % (95-100); ARTERIAL BLOOD GAS BASE EXCESS 6.3 (-2.0-2.0); ARTERIAL BLOOD GAS FIO2 50 %; ARTERIAL BLOOD GAS PO2 175 mmHg (75-100); ARTERIAL BLOOD GAS VENT MODE BiPAP; ARTERIAL BLOOD GAS pH 7.34 (7.35-7.45); CARBOXYHEMOGLOBIN 2.4 % THgb (0.0-6.9); HCO3- 34.5 (22-28); Lactic Acid 2.5 (0.4-2.0); Methhemoglobin 1.2 % (1.4-1.5); paO2 pAO1 0.63
[2018-09-10] MEDS ORDERED: DUONEB 0.5-3 MG/3 ml Neb IH ONE ×2 (09:51→09:55)
[2018-09-10 09:52] LABS: ABG SITE RIGHT RADIAL; ALLEN TEST OK? YES; ARTERIAL BLOOD GAS PCO2 64 mmHg (35-45)
[2018-09-10 09:53] LABS: Hematocrit 49.4 % (42-50); Hemoglobin 14.7 gm/dl (12.5-18.0); Mean Cell Volume 99.2 fl (78-100); Mean Corpuscular Hemoglobin 29.5 pg (26-32); Mean Corpuscular Hgb Concent. 29.8 g/dl (32-36); Mean Platelet Volume 12.7 fl (6-9.5); Platelet Count 219 K/mm3 (150-450); Red Blood Count 4.98 M/mm3 (4.1-5.6); Red Cell Distribution Width 15.2 % (11.5-14.0); White Blood Count 13.2 K/mm3 (4.0-10.5)
[2018-09-10] MEDS ORDERED: solu-MEDROL 125 MG ONE (09:54)
--- NOTE | 2018-09-10 09:55 | ERPHSYRPT ---
- History of Present Illness Time Seen by Provider: 09/10/18 09:46 Source: patient, EMS Exam Limitations: no limitations Physician History: 78-year-old white male with history of high blood pressure, COPD, congestive heart failure, diabetes type 2, renal failure, coronary artery disease Patient arrives with complaint of shortness of breath since yesterday he states he was markedly short of breath he was noted by medics to have rhonchi and wheezes he was given a breathing treatment. Upon arrival to the emergency room he is started on BiPAP he is feeling somewhat better he still has bilateral wheezes decreased breath sounds. He denies any chest pain no nausea no vomiting no fevers Past medical history includes coronary disease, high blood pressure, COPD, congestive heart failure, diabetes type 2, chronic renal failure, prostate problems, arthritis Past surgical history includes appendectomy cholecystectomy orthopedic surgery cardiac stent CABG Timing/Duration: yesterday (last night) Severity: moderate Modifying Factors: Improves With: other (ppatient given albuterol treatment en route) Associated Symptoms: shortness of breath, cough, No nausea, No vomiting, No abdominal pain, No heartburn, No diaphoresis, No chills, No chest pain, No fever (good thank you), No headaches, No loss of appetite, No malaise, No rash, No syncope, No seizure, No weakness Allergies/Adverse Reactions: nadolol [From Corgard] Allergy (Mild, Verified 08/31/18 02:57) hydromorphone HCl [From Dilaudid] Allergy (Verified 08/31/18 02:57) metoclopramide [From Reglan] Adverse Reaction (Verified 08/31/18 02:57) Home Medications: Famotidine 20 mg [Pepcid 20 MG] 40 mg PO BID 08/15/15 [History] Glipizide 10 mg [Glucotrol 10 MG] 10 mg PO BID 08/15/15 [History] Hydralazine HCl 50 mg PO BID 08/15/15 [History] Levothyroxine Sodium 75 Mcg [Synthroid 75 Mcg] 75 mcg PO DAILY 08/15/15 [ History] Rivaroxaban [Xarelto] 20 mg PO HS 08/15/15 [History] Sennosides/Docusate Sodium [Senna-Docusate Sodium Tablet] 8.5 mg PO BID [History] Sitagliptin Phosphate [Januvia] 50 mg PO BID 08/15/15 [History] Tamsulosin HCl [Flomax] 0.4 mg PO HS 08/15/15 [History] Atorvastatin Calcium [Lipitor] 20 mg PO HS 07/02/18 [History] Carisoprodol 350 mg PO TID PRN PRN 07/02/18 [History] Carvedilol [Coreg] 25 mg PO BID 07/02/18 [History] Insulin Glargine [Lantus Insulin] 55 unit SQ HS 07/02/18 [History] Hx Tetanus, Diphtheria Vaccination/Date Given: Yes Hx Influenza Vaccination/Date Given: Yes Hx Pneumococcal Vaccination/Date Given: Yes - Review of Systems Constitutional: No Fever, No Chills Eyes: No Symptoms Ears, Nose, & Throat: No Symptoms Respiratory: No Cough, No Dyspnea Cardiac: No Chest Pain, No Edema, No Syncope Abdominal/Gastrointestinal: No Abdominal Pain, No Nausea, No Vomiting, No Diarrhea Genitourinary Symptoms: No Dysuria Musculoskeletal: No Back Pain, No Neck Pain Skin: No Rash Neurological: No Dizziness, No Focal Weakness, No Sensory Changes Psychological: No Symptoms Endocrine: No Symptoms All Other Systems: Reviewed and Negative - Past Medical History Pertinent Past Medical History: Yes Neurological History: No Pertinent History ENT History: No Pertinent History, Cataracts Cardiac History: Arrhythmia, Congestive Heart Failure, Coronary Artery Disease, Hypertension, Myocardial Infarction ([place]) Respiratory History: CHF, COPD Endocrine Medical History: Diabetes Type II Musculoskeletal History: Arthritis GI Medical History: No Pertinent History History: No Pertinent History Psycho-Social History: No Pertinent History Male Reproductive Disorders: Prostate Problems Other Medical History: pt states history of renal failure - Past Surgical History Past Surgical History: Yes Neuro Surgical History: No Pertinent History Cardiac: CABG Respiratory: No Pertinent History Gastrointestinal: Appendectomy, Cholecystectomy Genitourinary: No Pertinent History Musculoskeletal: Orthopedic Surgery Male Surgical History: No Pertinent History Other Surgical History: stents in past as stated per pt, CABG - Social History Smoking Status: Former smoker Exposure to second hand smoke: No Drug Use: none Patient Lives Alone: Yes - Nursing Vital Signs Nursing Vital Signs: Initial Vital Signs Pulse Rate 54 L 09/10/18 09:40 Respiratory Rate 32 H 09/10/18 09:40 Blood Pressure 111/51 09/10/18 09:40 O2 Sat by Pulse Oximetry 99 09/10/18 09:40 Pain Scale Pain Intensity 0 - Physical Exam General Appearance: moderate distress, alert Eye Exam: PERRL/EOMI, eyes nml inspection Ears, Nose, Throat Exam: normal ENT inspection, TMs normal, pharynx normal, moist mucous membranes Neck Exam: normal inspection, non-tender, supple, full range of motion Respiratory Exam: lungs clear, diminished breath sounds, wheezing, No respiratory distress Cardiovascular Exam: regular rate/rhythm, normal heart sounds, normal peripheral pulses, capillary refill <2 sec Gastrointestinal/Abdomen Exam: soft, normal bowel sounds, No tenderness, No mass Back Exam: normal inspection, normal range of motion, No CVA tenderness, No vertebral tenderness Extremity Exam: normal inspection, normal range of motion, pelvis stable Neurologic Exam: alert, oriented x 3, cooperative, television cameraman II-XII nml as tested, normal mood/affect, nml cerebellar function, nml station & gait, sensation nml, No motor deficits Skin Exam: normal color, warm, dry, No rash SpO2 Interpretation: hypoxic (89%) SpO2: 89 - Course Nursing assessment & vital signs reviewed: Yes EKG Interpreted by Me: RATE (44 bpm), NORMAL AXIS, Other (EKG: Ventricular escape rhythm, 44 beats per minute, T wave inversions in leads 3 and aVF) - Radiology Exams Chest X-ray Interpretation: Discussed w/ radiologist (chest x-ray:impression: Portable chest does not completely included lung bases. Bibasilar infiltrate versus atelectasis. Remaining heart and lungs unremarkable with CABG and scattered calcified granulomas) Ordered Tests: Active Orders 24 hr Category Date Time Status [employer] Director STAT Care 09/10/18 09:44 Active EKG-ER Only STAT Care 09/10/18 09:43 Active IV Insertion STAT Care 09/10/18 09:43 Active Pulse Oximetry (ED) STAT Care 09/10/18 09:43 Active CHEST 1 VIEW (PORTABLE) Stat Exams 09/10/18 09:44 Completed ARTERIAL BLOOD GASES Stat Lab 09/10/18 09:48 Completed BLOOD CULTURE Stat Lab 09/10/18 10:15 Received CBC W DIFF Stat Lab 09/10/18 09:40 Completed CMP Stat Lab 09/10/18 09:40 Completed D-DIMER QUANTITATION Stat Lab 09/10/18 09:40 Completed Lactic Acid Stat Lab 09/10/18 09:48 Completed Manual Differential NC Stat Lab 09/10/18 09:40 Completed NT PRO BNP Stat Lab 09/10/18 09:40 Completed PROTIME WITH INR Stat Lab 09/10/18 09:40 Completed PTT Stat Lab 09/10/18 09:40 Completed TROPONIN Q3H Lab 09/10/18 09:40 Completed BiPap/CPAP ROUTINE RT 09/10/18 09:43 Active Peak Expiratory Flow Rate ONCE RT 09/10/18 10:13 Active Respiratory Therapy Assessment DAILY RT 09/10/18 10:13 Active Medication Summary Discontinued Medications Generic Name Dose Route Start Last Admin Trade Name Freq PRN Reason Stop Dose Admin Albuterol Sulfate 2.5 mg 09/10/18 09:49 09/10/18 10:31 Proventil 2.5 Mg/3 Ml Neb IH 09/10/18 09:50 Not Given STAT ONE Albuterol/Ipratropium 3 ml 09/10/18 09:51 09/10/18 09:58 Duoneb 0.5-3 Mg/3 Ml Neb IH 09/10/18 09:52 3 ml STAT ONE Administration Albuterol/Ipratropium Confirm 09/10/18 09:55 Duoneb 0.5-3 Mg/3 Ml Neb Administered 09/10/18 09:56 Dose 3 ml IH .STK-MED ONE Aspirin 81 mg 09/10/18 10:50 09/10/18 10:59 Baby Aspirin 81 Mg Chew PO 09/10/18 10:51 81 mg STAT ONE Administration Aspirin Confirm 09/10/18 11:25 Baby Aspirin 81 Mg Chew Administered 09/10/18 11:26 Dose 81 mg .ROUTE .STK-MED ONE Atropine Sulfate 0.5 mg 09/10/18 10:45 09/10/18 10:56 Atropine Sulfate 1mg Syr Abboject IV 09/10/18 10:46 0.5 mg STAT ONE Administration Atropine Sulfate Confirm 09/10/18 10:51 Atropine Sulfate 1mg Syr Abboject Administered 09/10/18 10:52 Dose 1 mg .ROUTE .STK-MED ONE Ceftriaxone Sodium/Dextrose 1 g in 50 mls @ 100 mls/hr 05/23/19 10:16 10:27 Rocephin 1 Gm-D5w 50 Ml Bag IV 09/10/18 10:45 100 mls/hr STAT STA 100 mls/hr Administration Ceftriaxone Sodium/Dextrose Confirm 09/10/18 10:24 Rocephin 1 Gm-D5w 50 Ml Bag Administered 09/10/18 10:25 Dose 1 g in 50 mls @ ud IV .STK-MED ONE Sodium Chloride 1,000 mls @ 50 mls/hr 09/10/18 10:45 09/10/18 10:48 Sodium Chloride 0.9% 1000 Ml IV 10/10/18 10:44 50 mls/hr .Q20H FABIANA Administration Sodium Chloride Confirm 09/10/18 10:44 Sodium Chloride 0.9% 1000 Ml Administered 09/10/18 10:45 Dose 1,000 mls @ ud .ROUTE .STK-MED ONE Methylprednisolone Sodium Succinate 125 mg 09/10/18 09:43 09/10/18 09:56 Solu-Medrol 125 Mg IV 09/10/18 09:44 125 mg STAT ONE Administration Methylprednisolone Sodium Succinate Confirm 09/10/18 09:54 Solu-Medrol 125 Mg Administered 09/10/18 09:55 Dose 125 mg .ROUTE .STK-MED ONE Lab/Rad Data: Laboratory Result Diagrams 09/10/18 09:40 09/10/18 09:40 Laboratory Results 09/10/18 09/10/18 09/10/18 Range/Units 09:48 09:40 09:40 WBC (4.0-10.5) K/mm3 RBC (4.1-5.6) M/mm3 Hgb (12.5-18.0) gm/dl Hct (42-50) % MCV (78-100) fl MCH (26-32) pg MCHC (32-36) g/dl RDW (11.5-14.0) % Plt Count (150-450) K/mm3 MPV (6-9.5) fl Segmented Neutrophils (36.-66.) % Band Neutrophils (0.0-2.0) % Lymphocytes (Manual) (24-44) % Monocytes (Manual) (0.0-12.0) % Eosinophils (Manual) (0.00-3.0) % Toxic Granulation Platelet Estimate (NORMAL) RBC Morphology Anisocytosis PT 16.4 H (8.83-12.87) SECONDS INR 1.41 (0.8-3.0) APTT 31.3 (24.1-36.1) SECONDS D-Dimer (215-500) ng/mL Puncture Site RIGHT RADIAL pCO2 64 H* (35-45) mmHg pO2 175 H* (75-100) mmHg Base Excess 6.3 H (-2.0-2.0) O2 Saturation 96.0 (94-100) g/dF ABG pH 7.34 L (7.35-7.45) ABG HCO3 34.5 H* (22-28) ABG O2 Sat (Measured) 99.6 (95-100) % Xander Test YES A-a Gradient 102 a/A Ratio 0.63 Hemoglobin 14.8 Carboxyhemoglobin 2.4 (0.0-6.9) % THgb Methemoglobin 1.2 L (1.4-1.5) % Temperature 37.0 C POC O2 Flow Rate 50 % Vent Mode BiPAP Inspiratory BiPAP 16 Expiratory BiPAP 6 Sodium (137-145) mmol/L Potassium 5.3 H (3.5-5.1) mmol/L Chloride (98-107) mmol/L Carbon Dioxide (22-30) mmol/L Anion Gap (5-15) MEQ/L BUN (9-20) mg/dL Creatinine (0.66-1.25) mg/dL Estimated GFR ML/MIN Glucose (74-106) mg/dL Lactic Acid 2.5 H (0.4-2.0) Calcium (8.4-10.2) mg/dL Total Bilirubin (0.2-1.3) mg/dL AST (17-59) U/L ALT (0-50) U/L Alkaline Phosphatase (38-126) U/L Troponin I 0.041 H* (0.000-0.034) ng/mL NT-Pro-B Natriuret Pep (0-1800) pg/mL Serum Total Protein (6.3-8.2) g/dL Albumin (3.5-5.0) g/dL 09/10/18 09/10/18 09/10/18 Range/Units 09:40 09:40 09:40 WBC 13.2 H (4.0-10.5) K/mm3 RBC 4.98 (4.1-5.6) M/mm3 Hgb 14.7 (12.5-18.0) gm/dl Hct 49.4 (42-50) % MCV 99.2 (78-100) fl MCH 29.5 (26-32) pg MCHC 29.8 L (32-36) g/dl RDW 15.2 H (11.5-14.0) % Plt Count 219 (150-450) K/mm3 MPV 12.7 H (6-9.5) fl Segmented Neutrophils 71 H (36.-66.) % Band Neutrophils 4 H (0.0-2.0) % Lymphocytes (Manual) 20 L (24-44) % Monocytes (Manual) 4 (0.0-12.0) % Eosinophils (Manual) 1 (0.00-3.0) % Toxic Granulation 1+ Platelet Estimate NORMAL (NORMAL) RBC Morphology ABNORMAL Anisocytosis 1+ PT (8.83-12.87) SECONDS INR (0.8-3.0) APTT (24.1-36.1) SECONDS D-Dimer 1019 H* (215-500) ng/mL Puncture Site pCO2 (35-45) mmHg pO2 (75-100) mmHg Base Excess (-2.0-2.0) O2 Saturation (94-100) g/dF ABG pH (7.35-7.45) ABG HCO3 (22-28) ABG O2 Sat (Measured) (95-100) % Xander Test A-a Gradient a/A Ratio Hemoglobin Carboxyhemoglobin (0.0-6.9) % THgb Methemoglobin (1.4-1.5) % Temperature C POC O2 Flow Rate % Vent Mode Inspiratory BiPAP Expiratory BiPAP Sodium 140 (137-145) mmol/L Potassium 5.0 (3.5-5.1) mmol/L Chloride 98 (98-107) mmol/L Carbon Dioxide 37 H (22-30) mmol/L Anion Gap 11.0 (5-15) MEQ/L BUN 31 H (9-20) mg/dL Creatinine 1.51 H (0.66-1.25) mg/dL Estimated GFR 47.9 ML/MIN Glucose 301 H (74-106) mg/dL Lactic Acid (0.4-2.0) Calcium 9.1 (8.4-10.2) mg/dL Total Bilirubin 0.40 (0.2-1.3) mg/dL AST 25 (17-59) U/L ALT 38 (0-50) U/L Alkaline Phosphatase 69 (38-126) U/L Troponin I (0.000-0.034) ng/mL NT-Pro-B Natriuret Pep 1940 H (0-1800) pg/mL Serum Total Protein 6.0 L (6.3-8.2) g/dL Albumin 3.1 L (3.5-5.0) g/dL - Progress Progress: improved Progress Note: 09/10/18 10:16 Patient's lactate is elevated at 2.5 patient is afebrile. Does not appear to have sepsis. Patient with strong history of congestive heart failure. A will avoid iv fluid bolus at this time. Rocephin has been ordered for the patient he does have bibasilar infiltrates versus atelectasis. 09/10/18 10:57 Patient with ventricular escape rhythm running in the 40s. Patient with the blood pressure systolic 87/45. Patient apparently was started on Cardizem last week. Patient with elevated troponin at 0.0 41D dimer is elevated at 1.019 patient is on Xaralto. Rocephin has been ordered Atropine 0.5 mg have been given I've discussed case with Dr. De La Paz he requests that I discuss case with Dr. Joseph Villalta. Dr. Villalta states the patient can receive a 500 mL bolus of normal saline. And patient will be transferred to [facility] Dr. Balwinder Villalta will admit him but will call through transfer center. - Departure Departure Disposition: Transfer Clinical Impression: Shortness of breath, COPD with exacerbation, Bradycardia, Elevated troponin Condition: Fair Critical Care Time: No Referrals: QASIM DE LA PAZ MD [Primary Care Provider] - Instructions: Chronic Obstructive Pulmonary Disease
[2018-09-10 10:01] LABS: INR 1.41 (0.8-3.0); PROTIME 16.4 SECONDS (8.83-12.87)
--- NOTE | 2018-09-10 10:02 | XRAY ---
Indication: Short of breath. Comparison: August 30, 2018. Portable chest does not completely include the lung bases. New bibasilar infiltrates versus atelectasis. Remaining heart and lungs unremarkable again with CABG and scattered calcified granulomas.
[2018-09-10 10:03] LABS: PTT 31.3 SECONDS (24.1-36.1)
[2018-09-10] MEDS ORDERED: ROCEPHIN 1 Gm-D5w 50 ml Bag** 1 G/50 ML IVPB IV STA (10:16)
[2018-09-10] MEDS ORDERED: ROCEPHIN 1 Gm-D5w 50 ml Bag** 1 G/50 ML IVPB IV ONE (10:24)
[2018-09-10 10:42] LABS: ALBUMIN 3.1 g/dL (3.5-5.0); BILIRUBIN,TOTAL 0.4 mg/dL (0.2-1.3); Calcium 9.1 mg/dL (8.4-10.2); Creatinine 1 1.51 mg/dL (0.66-1.25)
[2018-09-10] MEDS ORDERED: Sodium Chloride 0.9% 1000 ML 1,000 ML ONE (10:44)
[2018-09-10] MEDS ORDERED: Sodium Chloride 0.9% 1000 ML 1,000 ML IV SCH (10:45)
[2018-09-10] MEDS ORDERED: ATROPINE SULFATE 1MG SYR ABBOJECT IV ONE (10:45)
[2018-09-10] MEDS ORDERED: BABY ASPIRIN 81 MG CHEW PO ONE (10:50)
[2018-09-10] MEDS ORDERED: ATROPINE SULFATE 1MG SYR ABBOJECT ONE (10:51)
[2018-09-10] MEDS ORDERED: BABY ASPIRIN 81 MG CHEW ONE (11:25)
[2018-09-10 12:08] VITALS: BP 99/54; PULSE 50
[2018-09-10 14:52] LABS: ANISOCYTOSIS 1+; BAND 4 % (0.0-2.0); Eosinophil 1 % (0.00-3.0); Lymphocytes 20 % (24-44); Monocyte 4 % (0.0-12.0); Neutrophils 71 % (36.-66.); Platelet Estimate NORMAL (NORMAL); Total Cells Counted 100; Toxic Granulation 1+
[2018-09-10 16:10] VITALS: O2SAT 89
== END 2018-09-10 12:08 | disposition short-term general hospital (02) ==
LOC: ED 09:38
DX: J44.1 Chronic obstructive pulmonary disease with (acute) exacerbation (principal); R00.1 Bradycardia, unspecified; R74.8 Abnormal levels of other serum enzymes; I50.9 Heart failure, unspecified; I25.810 Atherosclerosis of coronary artery bypass graft(s) without angina pectoris; I10 Essential (primary) hypertension; E11.9 Type 2 diabetes mellitus without complications; M19.90 Unspecified osteoarthritis, unspecified site; Z79.01 Long term (current) use of anticoagulants; Z79.899 Other long term (current) drug therapy
CPT/HCPCS: 36000; 36415; 36600; 71045; 80053; 82375; 82803; 83605; 83880; 84484; 85025; 85379; 85610; 85730; 87040; 93005; 93041; 94002; 94640; 96360; 96365; 96374; 96375; 99285; J0461; J0696; J2930; A9270-GY

== ENCOUNTER 2019-09-25 10:02 | Emergency (ER) | payer MEDICARE, BC ==
--- NOTE | 2019-09-25 10:15 | ERPHSYRPT ---
- History of Present Illness Time Seen by Provider: 09/25/19 10:14 Source: patient, family Exam Limitations: no limitations Physician History: Is a 79-year-old morbidly obese white male with a history of insulin-dependent diabetes, hypertension, coronary artery disease, COPD, CHF and atrial fibrillation. Presents with 2-week history of right shoulder pain just below the scapula on the right side. He denies any kind of trauma. Today, 09/22/2019, patient was seen by his family consumer scientist Dr. Sarahi Villalta. Patient was told by his family consumer scientist that this was not cardiac related. A chest x-ray and shoulder x- ray were ordered but the patient had not obtain the x-ray studies. patient presents today with persistent symptoms. Dates that he does not want Dilaudid. And makes him feel funny and gave him hot flashes. Patient states that he has had morphine intravenously in the past without any problems and he has had Percocet in the past without any issues. Patient has no primary chest pain and has no shortness of breath. He has no abdominal pain. He denies cough symptoms. Timing/Duration: week(s) (2) Severity: mild Modifying Factors: Improves With: movement (Worsens when he moves his right shoulder in a certain way.), other (Palpating underneath the scapula along the right posterior lateral ribs there is some tenderness to palpation.) Associated Symptoms: denies symptoms Allergies/Adverse Reactions: nadolol [From Corgard] Allergy (Mild, Verified 09/25/19 10:17) hydromorphone HCl [From Dilaudid] Allergy (Verified 09/25/19 10:17) metoclopramide [From Reglan] Adverse Reaction (Verified 09/25/19 10:17) Home Medications: Glipizide 10 mg [Glucotrol 10 MG] 10 mg PO BID 08/15/15 [History] Hydralazine HCl 50 mg PO BID 08/15/15 [History] Levothyroxine Sodium 75 Mcg [Synthroid 75 Mcg] 75 mcg PO DAILY 08/15/15 [ History] Rivaroxaban [Xarelto] 20 mg PO HS 08/15/15 [History] Sennosides/Docusate Sodium [Senna-Docusate Sodium Tablet] 8.5 mg PO BID [History] Sitagliptin Phosphate [Januvia] 50 mg PO BID 08/15/15 [History] Tamsulosin HCl [Flomax] 0.4 mg PO HS 08/15/15 [History] Atorvastatin Calcium [Lipitor] 20 mg PO HS 07/02/18 [History] Carvedilol [Coreg] 25 mg PO HS 07/02/18 [History] Insulin Glargine [Lantus Insulin] 35 unit SQ BID 07/02/18 [History] carisoprodoL [Carisoprodol] 350 mg PO TID PRN PRN 07/02/18 [History] carvediloL [Carvedilol] 1 ea DAILY 09/25/19 [History] Hx Tetanus, Diphtheria Vaccination/Date Given: Yes Hx Influenza Vaccination/Date Given: Yes Hx Pneumococcal Vaccination/Date Given: Yes Travel Risk - International Travel Have you traveled outside of the country in past 3 weeks: No Have you or anyone close to you been diagnosed with or: No Do your reside in a community with a known COVID-19 case?: Yes If Yes where:: [facility] - Coronavirus Screening Has patient experienced Coronavirus symptoms: No - Review of Systems Constitutional: No Symptoms Eyes: No Symptoms Ears, Nose, & Throat: No Symptoms Respiratory: No Symptoms Cardiac: No Symptoms Abdominal/Gastrointestinal: No Symptoms Genitourinary Symptoms: No Symptoms Musculoskeletal: Other (Right infra scapular tenderness to certain movements and to palpation. Tenderness along right posterior lateral ribs at the level of the inferior scapular border) Skin: No Symptoms, No Rash Neurological: No Symptoms Psychological: No Symptoms Endocrine: No Symptoms Hematologic/Lymphatic: No Symptoms Immunological/Allergic: No Symptoms - Past Medical History Pertinent Past Medical History: Yes Neurological History: No Pertinent History ENT History: No Pertinent History, Cataracts Cardiac History: Arrhythmia, Congestive Heart Failure, Coronary Artery Disease, Hypertension, Myocardial Infarction ([place]) Respiratory History: CHF, COPD Endocrine Medical History: Diabetes Type II Musculoskeletal History: Arthritis GI Medical History: No Pertinent History History: No Pertinent History Psycho-Social History: No Pertinent History Male Reproductive Disorders: Prostate Problems Other Medical History: pt states history of renal failure - Past Surgical History Past Surgical History: Yes Neuro Surgical History: No Pertinent History Cardiac: CABG Respiratory: No Pertinent History Gastrointestinal: Appendectomy, Cholecystectomy Genitourinary: No Pertinent History Musculoskeletal: Orthopedic Surgery Male Surgical History: No Pertinent History Other Surgical History: stents in past as stated per pt, CABG - Social History Smoking Status: Former smoker Exposure to second hand smoke: No Drug Use: none Patient Lives Alone: Yes - Nursing Vital Signs Nursing Vital Signs: Initial Vital Signs Temperature 98.1 F 09/25/19 10:07 Pulse Rate 47 L 09/25/19 10:07 Respiratory Rate 18 09/25/19 10:07 Blood Pressure 191/62 09/25/19 10:07 O2 Sat by Pulse Oximetry 99 09/25/19 10:07 Pain Scale Pain Intensity 6 - Physical Exam General Appearance: no apparent distress, alert, obese, No anxiety Eye Exam: PERRL/EOMI, eyes nml inspection Ears, Nose, Throat Exam: normal ENT inspection, moist mucous membranes Neck Exam: normal inspection, non-tender, supple, full range of motion Respiratory Exam: normal breath sounds, lungs clear, airway intact, No chest tenderness, No respiratory distress Cardiovascular Exam: bradycardia Rectal Exam: not done Back Exam: normal inspection, normal range of motion, No CVA tenderness, No vertebral tenderness Extremity Exam: normal inspection, normal range of motion, pelvis stable, tenderness (Right infrascapular region. Tenderness along the posterior lateral ribs on the right side.) Neurologic Exam: alert, oriented x 3, cooperative, housekeeper hospital II-XII nml as tested, normal mood/affect, nml cerebellar function Skin Exam: normal color, warm, dry, No rash Lymphatic Exam: No adenopathy SpO2 Interpretation: normal O2 Delivery: Room Air - Course Nursing assessment & vital signs reviewed: Yes EKG Interpreted by Me: RATE (46), Sinus César, NORMAL AXIS, NORMAL INTERVALS, NORMAL QRS, Other (Comparison EKG on 09/10/2018 reveals no new changes in the heart rate or axis. There is resolution on the current EKG of the nonspecific ST changes that were present on the old EKG.) Ordered Tests: Active Orders 24 hr Category Date Time Status Heat Treatment Technician STAT Care 09/25/19 11:13 Active EKG-ER Only STAT Care 09/25/19 11:12 Active IV Insertion STAT Care 09/25/19 11:12 Active Pulse Oximetry (ED) STAT Care 09/25/19 11:12 Active CHEST 1 VIEW (PORTABLE) Stat Exams 09/25/19 11:13 Taken SHOULDER Stat Exams 09/25/19 11:14 Taken CBC W DIFF Stat Lab 09/25/19 11:00 Completed CMP Stat Lab 09/25/19 11:00 Completed TROPONIN Q3H Lab 09/25/19 11:00 Completed TROPONIN Q3H Lab 09/25/19 14:15 Ordered TROPONIN Q3H Lab 09/25/19 17:15 Ordered TROPONIN Q3H Lab 09/25/19 20:15 Ordered TROPONIN Q3H Lab 09/25/19 23:15 Ordered Medication Summary Discontinued Medications Generic Name Dose Route Start Last Admin Trade Name Dmitriq PRN Reason Stop Dose Admin Morphine Sulfate 4 mg 09/25/19 11:12 09/25/19 11:23 Morphine Sulfate 4 Mg Inj IV 09/25/19 11:13 4 mg STAT ONE Administration Morphine Sulfate Confirm 09/25/19 11:20 Morphine Sulfate 4 Mg Inj Administered 09/25/19 11:21 Dose 4 mg .ROUTE .STK-MED ONE Ondansetron HCl 4 mg 09/25/19 11:12 09/25/19 11:25 Zofran 4 Mg/2 Ml Vial IV 09/25/19 11:13 4 mg STAT ONE Administration Ondansetron HCl Confirm 09/25/19 11:20 Zofran 4 Mg/2 Ml Vial Administered 09/25/19 11:21 Dose 4 mg .ROUTE .STK-MED ONE Lab/Rad Data: Laboratory Result Diagrams 09/25/19 11:00 09/25/19 11:00 Laboratory Results 09/25/19 09/25/19 09/25/19 Range/Units 11:00 11:00 11:00 WBC 9.6 (4.0-10.5) K/mm3 RBC 4.40 (4.1-5.6) M/mm3 Hgb 13.4 (12.5-18.0) gm/dl Hct 41.0 L (42-50) % MCV 93.2 (78-100) fl MCH 30.5 (26-32) pg MCHC 32.7 (32-36) g/dl RDW 14.3 H (11.5-14.0) % Plt Count 200 (150-450) K/mm3 MPV 11.4 H (7.5-11.0) fl Gran % 69.8 H (36.0-66.0) % Eos # (Auto) 0.58 H (0-0.5) Absolute Lymphs (auto) 1.55 (1.0-4.6) Absolute Monos (auto) 0.72 (0.0-1.3) Lymphocytes % 16.2 L (24.0-44.0) % Monocytes % 7.5 (0.0-12.0) % Eosinophils % 6.1 H (0.00-5.0) % Basophils % 0.4 (0.0-0.4) % Absolute Granulocytes 6.69 (1.4-6.9) Basophils # 0.04 (0-0.4) Sodium 136 L (137-145) mmol/L Potassium 5.1 (3.5-5.1) mmol/L Chloride 101 (98-107) mmol/L Carbon Dioxide 24 (22-30) mmol/L Anion Gap 15.7 H (5-15) MEQ/L BUN 42 H (9-20) mg/dL Creatinine 1.74 H (0.66-1.25) mg/dL Estimated GFR 40.5 ML/MIN Glucose 266 H (74-106) mg/dL Calcium 9.2 (8.4-10.2) mg/dL Total Bilirubin 0.40 (0.2-1.3) mg/dL AST 21 (17-59) U/L ALT 16 (0-50) U/L Alkaline Phosphatase 86 (38-126) U/L Troponin I < 0.012 (0.000-0.034) ng/mL Serum Total Protein 7.2 (6.3-8.2) g/dL Albumin 4.0 (3.5-5.0) g/dL - Progress Progress: improved, pain not gone completely, re-examined Progress Note: 09/25/19 12:59 Chest x-ray shows no acute pulmonary process. There is no evidence of any rib fractures. The right shoulder x-ray reveals no evidence of any acute fracture or dislocation. Counseled pt/family regarding: lab results, diagnosis, need for follow-up, rad results - Departure Departure Disposition: Home Clinical Impression: Musculoskeletal pain of right upper extremity Condition: Stable Critical Care Time: No Referrals: QASIM DE LA PAZ MD [Primary Care Provider] - Additional Instructions: Take your medication as prescribed. Follow-up with your primary care physician for persistent symptoms. Prescriptions: Carisoprodol 350 mg [Soma 350 mg] 350 mg PO Q12H PRN PRN #4 tablet MDD 2 PRN Reason: Muscle Spasms Hydrocodone/APAP 5-325 Tab^^^ [[place] 5-325 Tablet^^^] 1 tab PO Q12H PRN PRN #8 tablet MDD 2 PRN Reason: Pain
[2019-09-25] MEDS ORDERED: MORPHINE SULFATE 4 MG INJ IV ONE (11:12)
[2019-09-25] MEDS ORDERED: Zofran 4 MG/2 ML VIAL IV ONE (11:12)
[2019-09-25] MEDS ORDERED: MORPHINE SULFATE 4 MG INJ ONE (11:20)
[2019-09-25] MEDS ORDERED: Zofran 4 MG/2 ML VIAL ONE (11:20)
[2019-09-25 11:24] LABS: Absolute Neutrophil Ct (ANC) 6.69 (1.4-6.9); BASOPHIL % 0.4 % (0.0-0.4); Basophil (Absolute #) 0.04 (0-0.4); Eosinophil % 6.1 % (0.00-5.0); Eosinophil (Absolute #) 0.58 (0-0.5); Hemoglobin 13.4 gm/dl (12.5-18.0); Lymphocyte (Absolute #) 1.55 (1.0-4.6); Lymphocytes % 16.2 % (24.0-44.0); Mean Cell Volume 93.2 fl (78-100); Mean Corpuscular Hemoglobin 30.5 pg (26-32); Mean Corpuscular Hgb Concent. 32.7 g/dl (32-36); Mean Platelet Volume 11.4 fl (7.5-11.0); Monocyte (Absolute #) 0.72 (0.0-1.3); Monocytes % 7.5 % (0.0-12.0); Neutrophil % 69.8 % (36.0-66.0); Platelet Count 200 K/mm3 (150-450); Red Cell Distribution Width 14.3 % (11.5-14.0); White Blood Count 9.6 K/mm3 (4.0-10.5)
[2019-09-25 11:45] LABS: ANION GAP 15.7 MEQ/L (5-15); BILIRUBIN,TOTAL 0.4 mg/dL (0.2-1.3); Calcium 9.2 mg/dL (8.4-10.2); Creatinine 1 1.74 mg/dL (0.66-1.25); Potassium 5.1 mmol/L (3.5-5.1); Total Protein 7.2 g/dL (6.3-8.2)
[2019-09-25 13:24] VITALS: BP 181/61; PULSE 97; O2SAT 100
--- NOTE | 2019-09-25 20:08 | XRAY ---
Indication: Cough. Comparison: September 10, 2018. Portable chest clear with again incidental calcified granulomas. Heart is not enlarged again with CABG surgery. Bony thorax intact. No new/acute findings.
--- NOTE | 2019-09-25 20:11 | XRAY ---
Indication: Right shoulder pain 2 weeks. No known injury. Comparison: None 2 view right shoulder demonstrates moderate AC degenerative arthropathy and right lung calcified granulomas. No other bony, articular, or soft tissue abnormalities.
== END 2019-09-25 13:25 | disposition home or self-care (01) ==
LOC: ED 10:02
DX: M79.18 Myalgia, other site (principal); E11.9 Type 2 diabetes mellitus without complications; Z79.4 Long term (current) use of insulin; I25.810 Atherosclerosis of coronary artery bypass graft(s) without angina pectoris; J44.9 Chronic obstructive pulmonary disease, unspecified; I50.9 Heart failure, unspecified; Z86.79 Personal history of other diseases of the circulatory system; Z79.01 Long term (current) use of anticoagulants; Z79.899 Other long term (current) drug therapy; I12.9 Hypertensive chronic kidney disease with stage 1 through stage 4 chronic kidney disease, or unspecified chronic kidney disease; N18.9 Chronic kidney disease, unspecified
CPT/HCPCS: 36000; 36415; 71045; 73030; 80053; 84484; 85025; 93005; 93041; 94760; 96374; 96375; 99284; J2270; J2405

== ENCOUNTER 2020-10-25 06:34 | Emergency (ER) | payer MEDICARE, BC ==
[2020-10-25] MEDS ORDERED: DUONEB 0.5-3 MG/3 ml Neb IH ONE ×2 (07:36→07:45)
[2020-10-25 07:39] LABS: Hematocrit 44.6 % (42-50); Hemoglobin 13.8 gm/dl (12.5-18.0); Mean Cell Volume 90.1 fl (78-100); Mean Corpuscular Hemoglobin 27.9 pg (26-32); Mean Corpuscular Hgb Concent. 30.9 g/dl (32-36); Mean Platelet Volume 11.9 fl (7.5-11.0); Platelet Count 240 K/mm3 (150-450); Red Blood Count 4.95 M/mm3 (4.1-5.6); Red Cell Distribution Width 15.7 % (11.5-14.0); White Blood Count 12.5 K/mm3 (4.0-10.5)
--- NOTE | 2020-10-25 07:54 | ERPHSYRPT ---
- History of Present Illness Time Seen by Provider: 10/25/20 06:45 Source: patient Exam Limitations: no limitations Patient Subjective Stated Complaint: pt states "I was having trouble breath last night and still can't catch my breath." Triage Nursing Assessment: pt came into via wheelchair; pt is axo x4; c/o SOB; pt states he woke up SOB tonight around midnight; pt states that he took a breath treatment 1.5 hours prior to arrival; pt wears 2L nasal cannal all the time; pt states he has thick white sputum; clear lung sound in all lobes; strong radial pulses; BLE edema; hypertensive; 95% on 2L Physician History: Patient is a 80-year-old male presents to our ED with complaints of shortness of breath. Patient states he has a history of COPD and requires 2 L nasal cannula oxygen 24 hours a day. Patient's current bout of shortness of breath started at 11 PM. Patient states that shortness of breath continued. He self administered an albuterol breathing treatment at approximately 5 AM. Patient states this sig nificantly improved his symptoms. However he is now feeling shortness of breath once again. Patient admits to infrequent cough productive of white sputum. No fever. No chest pain however he does have some pain at his back between his scapula. Patient has a history of CABG. The donor site was the right lower extremity. Patient admits to chronic bilateral lower extremity edema right greater than left. No calf pain. Negative Homans' sign bilaterally. Symptoms are progressive. Symptoms are moderate in intensity. No specific worsening or improving factors. Patient believes he may be experiencing a COPD exacerbation. at bedside. They voiced no other complaints or concerns at this time. Timing/Duration: yesterday Activities at Onset: rest Severity of Dyspnea-Max: moderate Severity of Dyspnea-Current: mild Possible Cause: occasional episodes Modifying Factors: Improves With: albuterol inhaler Associated Symptoms: No chest pain/discomfort, No fever, No wheezing, No calf pain, No heart racing, No lightheadedness Allergies/Adverse Reactions: nadolol [From Corgard] Allergy (Mild, Verified 10/25/20 06:36) hydromorphone HCl [From Dilaudid] Allergy (Verified 10/25/20 06:36) metoclopramide [From Reglan] Adverse Reaction (Verified 10/25/20 06:36) Home Medications: Glipizide 10 mg [Glucotrol 10 MG] 10 mg PO BID 08/15/15 [History] Hydralazine HCl 25 mg PO BID 08/15/15 [History] Levothyroxine Sodium 75 Mcg [Synthroid 75 Mcg] 75 mcg PO DAILY 08/15/15 [History] Rivaroxaban [Xarelto] 20 mg PO HS 08/15/15 [History] Sennosides/Docusate Sodium [Senna-Docusate Sodium Tablet] 8.5 mg PO BID 08/15/15 [History] Tamsulosin HCl [Flomax] 0.4 mg PO HS 08/15/15 [History] Atorvastatin Calcium [Lipitor] 20 mg PO HS 07/02/18 [History] Carvedilol [Coreg] 25 mg PO HS 07/02/18 [History] Insulin Glargine [Lantus Insulin] 60 unit SQ BID 07/02/18 [History] carvediloL [Carvedilol] 25 ea PO DAILY 09/25/19 [History] Amlodipine Besylate 10 mg PO DAILY 10/25/20 [History] Cimetidine [Tagamet] 800 mg PO HS 10/25/20 [History] Dapagliflozin Propanediol [Farxiga] 10 mg PO DAILY 10/25/20 [History] Digoxin [Digox] 250 mcg PO 10/25/20 [History] Dutasteride 0.5 mg PO DAILY 10/25/20 [History] Evolocumab [Repatha Syringe] 140 mg SQ UD 10/25/20 [History] Famotidine [Pepcid] 40 mg PO BID 10/25/20 [History] PANTOPRAZOLE 40 mg Tablet [Protonix 40MG Tablet] 40 mg PO BID 10/25/20 [History] Semaglutide [Ozempic] 0.25 mg SQ WEEKLY 10/25/20 [History] Sucralfate 1 gm PO BID 10/25/20 [History] Hx Tetanus, Diphtheria Vaccination/Date Given: No Hx Influenza Vaccination/Date Given: Yes Hx Pneumococcal Vaccination/Date Given: Yes Travel Risk - International Travel Have you traveled outside of the country in past 3 weeks: No - Coronavirus Screening Are you exhibiting any of the following symptoms?: No Close contact with a COVID-19 positive Pt in past 14-21 Days: No - Vaccine Status Have you recieved a Covid-19 vaccination: Yes Director Of Knowledge Management: Moderna - Vaccination Dates Date of 2cond Vaccination (if applicable): 08/21/20 - Review of Systems Constitutional: No Symptoms, No Fever, No Chills Eyes: No Symptoms Ears, Nose, & Throat: No Symptoms Respiratory: No Symptoms, No Cough, No Dyspnea Cardiac: No Symptoms, No Chest Pain, No Edema, No Syncope Abdominal/Gastrointestinal: No Symptoms, No Abdominal Pain, No Nausea, No Vomiting, No Diarrhea Genitourinary Symptoms: No Symptoms, No Dysuria Musculoskeletal: No Symptoms, No Back Pain, No Neck Pain Skin: No Symptoms, No Rash Neurological: No Symptoms, No Dizziness, No Focal Weakness, No Sensory Changes Psychological: No Symptoms Endocrine: No Symptoms Hematologic/Lymphatic: No Symptoms Immunological/Allergic: No Symptoms All Other Systems: Reviewed and Negative - Past Medical History Pertinent Past Medical History: Yes Neurological History: No Pertinent History ENT History: No Pertinent History, Cataracts Cardiac History: Arrhythmia, Congestive Heart Failure, Coronary Artery Disease, Hypertension, Myocardial Infarction ([place]) Respiratory History: CHF, COPD Endocrine Medical History: Diabetes Type II Musculoskeletal History: Arthritis GI Medical History: No Pertinent History History: No Pertinent History Psycho-Social History: No Pertinent History Male Reproductive Disorders: Prostate Problems Other Medical History: pt states history of renal failure - Past Surgical History Past Surgical History: Yes Neuro Surgical History: No Pertinent History Cardiac: CABG Respiratory: No Pertinent History Gastrointestinal: Appendectomy, Cholecystectomy Genitourinary: No Pertinent History Musculoskeletal: Orthopedic Surgery Male Surgical History: No Pertinent History Other Surgical History: stents in past as stated per pt, CABG - Social History Smoking Status: Former smoker Exposure to second hand smoke: No Drug Use: none Patient Lives Alone: No - Nursing Vital Signs Nursing Vital Signs: Initial Vital Signs Temperature 98.4 F 10/25/20 06:37 Pulse Rate 70 10/25/20 06:37 Respiratory Rate 18 10/25/20 06:37 Blood Pressure 177/115 10/25/20 06:37 O2 Sat by Pulse Oximetry 94 L 10/25/20 06:37 Pain Scale Pain Intensity 0 - Physical Exam General Appearance: no apparent distress, alert Eye Exam: PERRL/EOMI Neck Exam: normal inspection, supple Respiratory Exam: lungs clear, airway intact, diminished breath sounds, No respiratory distress, No accessory muscle use, No crackles/rales Cardiovascular/Chest Exam: normal heart sounds, regular rate/rhythm Abdominal/Gastrointestinal Exam: soft, No tenderness, No distention, No mass Extremity Exam: non-tender, normal range of motion, normal inspection, no calf tenderness, swelling (Bilateral lower extremity 2+ pitting edema. Negative Homans' sign bilaterally.) Peripheral Pulses Exam: dorsalis-pedis (R): 2+, dorsalis-pedis (L): 2+ Neurologic Exam: alert, oriented x 3, cooperative, mri assistant II-XII nml as tested, sensation nml, No motor deficits Skin Exam: normal color, warm, No dry Lymphatic Exam: No adenopathy SpO2 Interpretation: normal SpO2: 96 O2 Delivery: Nasal Cannula - Course Nursing assessment & vital signs reviewed: Yes EKG Interpreted by Me: RATE (69), Sinus Rhythm, NORMAL AXIS, NORMAL INTERVALS, Non-specific ST Changes - Radiology Exams Chest X-ray Interpretation: Teleradiologist Report (New bilateral mid to lower lung infiltrates without consolidation/large effusion. Remaining heart and lungs unremarkable again with scattered calcified granulomas and CABG surgery. Bony thorax intact.) Ordered Tests: Active Orders 24 hr Category Date Time Status Cleat Layer STAT Care 10/25/20 07:24 Completed EKG-ER Only STAT Care 10/25/20 07:23 Completed IV Insertion STAT Care 10/25/20 07:23 Completed Pulse Oximetry (ED) STAT Care 10/25/20 07:23 Completed CHEST 1 VIEW (PORTABLE) Stat Exams 10/25/20 07:24 Completed BLOOD CULTURE Stat Lab 10/25/20 08:25 Received CBC W DIFF Stat Lab 10/25/20 06:30 Completed CMP Stat Lab 10/25/20 06:30 Completed INFLUENZA A+B ION Stat Lab 10/25/20 08:20 Completed MAGNESIUM Stat Lab 10/25/20 06:30 Completed Manual Differential NC Stat Lab 10/25/20 06:30 Completed NT PRO BNP Stat Lab 10/25/20 06:30 Completed TROPONIN Q3H Lab 10/25/20 06:30 Completed TROPONIN Q3H Lab 10/25/20 10:40 Completed UA W/RFX UR CULTURE Stat Lab 10/25/20 09:11 Completed Respiratory Therapy Assessment DAILY RT 10/25/20 07:52 Completed Medication Summary Discontinued Medications Generic Name Dose Route Start Last Admin Trade Name Geri PRN Reason Stop Dose Admin Albuterol/Ipratropium 3 ml 10/25/20 07:36 10/25/20 07:51 Duoneb 0.5-3 Mg/3 Ml Neb IH 10/25/20 07:37 3 ml STAT ONE Administration Albuterol/Ipratropium Confirm 10/25/20 07:45 Duoneb 0.5-3 Mg/3 Ml Neb Administered 10/25/20 07:46 Dose 3 ml IH .STK-MED ONE Aspirin 324 mg 10/25/20 08:20 10/25/20 08:34 Baby Aspirin 81 Mg Chew PO 10/25/20 08:21 324 mg STAT ONE Administration Aspirin Confirm 10/25/20 08:32 Baby Aspirin 81 Mg Chew Administered 10/25/20 08:33 Dose 324 mg .ROUTE .STK-MED ONE Doxycycline Hyclate Confirm 10/25/20 09:35 Vibramycin 100 Mg Administered 10/25/20 09:36 Dose 100 mg IV .STK-MED ONE Furosemide 20 mg 10/25/20 09:25 10/25/20 09:33 Lasix 20 Mg/2 Ml IV 10/25/20 09:26 20 mg ONCE STA Administration Furosemide Confirm 10/25/20 09:30 Lasix 40 Mg/4 Ml Administered 10/25/20 09:31 Dose 40 mg .ROUTE .STK-MED ONE Heparin Sodium (Beef Lung) Confirm 10/25/20 09:35 Heparin 5000 Units/0.5 Ml (High Risk Med) Administered 10/25/20 09:36 Dose 5,000 unit .ROUTE .STK-MED ONE Heparin Sodium (Beef Lung) 5,000 unit 10/25/20 12:40 10/25/20 12:42 Heparin 5000 Units/0.5 Ml (High Risk Med) IV 10/25/20 12:41 5,000 unit STAT ONE Administration Doxycycline Hyclate 100 mg/ 100 mls @ 100 mls/hr 10/25/20 10:00 10/25/20 09:39 Dextrose IV 11/24/20 09:59 100 mls/hr Q12HT FABIANA Administration Heparin Sodium/Dextrose Confirm 10/25/20 09:36 Heparin 25,000 Units/D5w 250ml Premix Administered 10/25/20 09:37 Dose 25,000 units in 250 mls @ ud IV .STK-MED ONE Dextrose Confirm 10/25/20 09:36 D5w 100ml Mini Bag 100 Ml Administered 10/25/20 09:37 Dose 100 mls @ ud IV .STK-MED ONE Heparin Sodium/Dextrose 25,000 units in 250 mls @ 10 mls/hr 10/25/20 13:00 10/25/20 12:43 Heparin 25,000 Units/D5w 250ml Premix IV 11/24/20 12:59 10 ml/hr .Q24H FABIANA 10 mls/hr Administration Nitroglycerin 1 gm 10/25/20 08:20 10/25/20 08:34 Nitro-Bid 2% Ud Packets TOP 10/25/20 08:21 1 gm STAT ONE Administration Nitroglycerin Confirm 10/25/20 08:32 Nitro-Bid 2% Ud Packets Administered 10/25/20 08:33 Dose 1 gm .ROUTE .STK-MED ONE Lab/Rad Data: Laboratory Result Diagrams 10/25/20 06:30 10/25/20 06:30 Laboratory Results 10/25/20 10/25/20 10/25/20 Range/Units 10:40 09:11 08:20 WBC (4.0-10.5) K/mm3 RBC (4.1-5.6) M/mm3 Hgb (12.5-18.0) gm/dl Hct (42-50) % MCV (78-100) fl MCH (26-32) pg MCHC (32-36) g/dl RDW (11.5-14.0) % Plt Count (150-450) K/mm3 MPV (7.5-11.0) fl Absolute Neutrophils (1.4-6.9) Segmented Neutrophils (36.-66.) % Band Neutrophils (0.0-2.0) % Lymphocytes (Manual) (24-44) % Monocytes (Manual) (0.0-12.0) % Eosinophils (Manual) (0.00-3.0) % Platelet Estimate (NORMAL) RBC Morphology Sodium (137-145) mmol/L Potassium (3.5-5.1) mmol/L Chloride (98-107) mmol/L Carbon Dioxide (22-30) mmol/L Anion Gap (5-15) MEQ/L BUN (9-20) mg/dL Creatinine (0.66-1.25) mg/dL Estimated GFR ML/MIN Glucose (74-106) mg/dL Calcium (8.4-10.2) mg/dL Magnesium (1.6-2.3) mg/dL Total Bilirubin (0.2-1.3) mg/dL AST (17-59) U/L ALT (0-50) U/L Alkaline Phosphatase (38-126) U/L Troponin I 0.146 H* (0.000-0.034) ng/mL NT-Pro-B Natriuret Pep (0-1800) pg/mL Serum Total Protein (6.3-8.2) g/dL Albumin (3.5-5.0) g/dL Urine Color YELLOW (YELLOW) Urine Appearance SLIGHTLY CLOUDY (CLEAR) Urine pH 5.0 (5-6) Ur Specific [place] 1.024 (1.005-1.025) Urine Protein >=500 (Negative) Urine Ketones NEGATIVE (NEGATIVE) Urine Blood SMALL (0-5) Will/ul Urine Nitrite NEGATIVE (NEGATIVE) Urine Bilirubin NEGATIVE (NEGATIVE) Urine Urobilinogen NEGATIVE (0-1) mg/dL Ur Leukocyte Esterase NEGATIVE (NEGATIVE) Urine WBC (Auto) 3-5 (0-5) /HPF Urine RBC (Auto) NONE (0-2) /HPF U Epithel Cells (Auto) NONE (FEW) /HPF Urine Bacteria (Auto) RARE (NEGATIVE) /HPF Urine Mucus (Auto) SLIGHT (NEGATIVE) /HPF Urine Culture Reflexed NO (NO) Urine Glucose >=500 (NEGATIVE) mg/dL Digoxin (0.8-1.9) ng/mL Influenza Type A Ag NEGATIVE (NEGATIVE) Influenza Type B Ag NEGATIVE (NEGATIVE) SARS-CoV-2 (PCR) (NEGATIVE) 10/25/20 10/25/20 10/25/20 Range/Units 08:18 08:00 06:30 WBC (4.0-10.5) K/mm3 RBC (4.1-5.6) M/mm3 Hgb (12.5-18.0) gm/dl Hct (42-50) % MCV (78-100) fl MCH (26-32) pg MCHC (32-36) g/dl RDW (11.5-14.0) % Plt Count (150-450) K/mm3 MPV (7.5-11.0) fl Absolute Neutrophils (1.4-6.9) Segmented Neutrophils (36.-66.) % Band Neutrophils (0.0-2.0) % Lymphocytes (Manual) (24-44) % Monocytes (Manual) (0.0-12.0) % Eosinophils (Manual) (0.00-3.0) % Platelet Estimate (NORMAL) RBC Morphology Sodium (137-145) mmol/L Potassium (3.5-5.1) mmol/L Chloride (98-107) mmol/L Carbon Dioxide (22-30) mmol/L Anion Gap (5-15) MEQ/L BUN (9-20) mg/dL Creatinine (0.66-1.25) mg/dL Estimated GFR ML/MIN Glucose (74-106) mg/dL Calcium (8.4-10.2) mg/dL Magnesium (1.6-2.3) mg/dL Total Bilirubin (0.2-1.3) mg/dL AST (17-59) U/L ALT (0-50) U/L Alkaline Phosphatase (38-126) U/L Troponin I 0.167 H* (0.000-0.034) ng/mL NT-Pro-B Natriuret Pep (0-1800) pg/mL Serum Total Protein (6.3-8.2) g/dL Albumin (3.5-5.0) g/dL Urine Color (YELLOW) Urine Appearance (CLEAR) Urine pH (5-6) Ur Specific [place] (1.005-1.025) Urine Protein (Negative) Urine Ketones (NEGATIVE) Urine Blood (0-5) Will/ul Urine Nitrite (NEGATIVE) Urine Bilirubin (NEGATIVE) Urine Urobilinogen (0-1) mg/dL Ur Leukocyte Esterase (NEGATIVE) Urine WBC (Auto) (0-5) /HPF Urine RBC (Auto) (0-2) /HPF U Epithel Cells (Auto) (FEW) /HPF Urine Bacteria (Auto) (NEGATIVE) /HPF Urine Mucus (Auto) (NEGATIVE) /HPF Urine Culture Reflexed (NO) Urine Glucose (NEGATIVE) mg/dL Digoxin 0.9 (0.8-1.9) ng/mL Influenza Type A Ag (NEGATIVE) Influenza Type B Ag (NEGATIVE) SARS-CoV-2 (PCR) NEGATIVE (NEGATIVE) 10/25/20 10/25/20 Range/Units 06:30 06:30 WBC 12.5 H (4.0-10.5) K/mm3 RBC 4.95 (4.1-5.6) M/mm3 Hgb 13.8 (12.5-18.0) gm/dl Hct 44.6 (42-50) % MCV 90.1 (78-100) fl MCH 27.9 (26-32) pg MCHC 30.9 L (32-36) g/dl RDW 15.7 H (11.5-14.0) % Plt Count 240 (150-450) K/mm3 MPV 11.9 H (7.5-11.0) fl Absolute Neutrophils 9.78 (1.4-6.9) Segmented Neutrophils 76 H (36.-66.) % Band Neutrophils 2 (0.0-2.0) % Lymphocytes (Manual) 13 L (24-44) % Monocytes (Manual) 6 (0.0-12.0) % Eosinophils (Manual) 3 (0.00-3.0) % Platelet Estimate NORMAL (NORMAL) RBC Morphology NORMAL Sodium 136 L (137-145) mmol/L Potassium 4.3 (3.5-5.1) mmol/L Chloride 100 (98-107) mmol/L Carbon Dioxide 24 (22-30) mmol/L Anion Gap 15.8 H (5-15) MEQ/L BUN 25 H (9-20) mg/dL Creatinine 1.53 H (0.66-1.25) mg/dL Estimated GFR 46.9 ML/MIN Glucose 190 H (74-106) mg/dL Calcium 8.9 (8.4-10.2) mg/dL Magnesium 2.1 (1.6-2.3) mg/dL Total Bilirubin 0.50 (0.2-1.3) mg/dL AST 26 (17-59) U/L ALT 14 (0-50) U/L Alkaline Phosphatase 88 (38-126) U/L Troponin I (0.000-0.034) ng/mL NT-Pro-B Natriuret Pep 990 (0-1800) pg/mL Serum Total Protein 7.0 (6.3-8.2) g/dL Albumin 3.8 (3.5-5.0) g/dL Urine Color (YELLOW) Urine Appearance (CLEAR) Urine pH (5-6) Ur Specific [place] (1.005-1.025) Urine Protein (Negative) Urine Ketones (NEGATIVE) Urine Blood (0-5) Will/ul Urine Nitrite (NEGATIVE) Urine Bilirubin (NEGATIVE) Urine Urobilinogen (0-1) mg/dL Ur Leukocyte Esterase (NEGATIVE) Urine WBC (Auto) (0-5) /HPF Urine RBC (Auto) (0-2) /HPF U Epithel Cells (Auto) (FEW) /HPF Urine Bacteria (Auto) (NEGATIVE) /HPF Urine Mucus (Auto) (NEGATIVE) /HPF Urine Culture Reflexed (NO) Urine Glucose (NEGATIVE) mg/dL Digoxin (0.8-1.9) ng/mL Influenza Type A Ag (NEGATIVE) Influenza Type B Ag (NEGATIVE) SARS-CoV-2 (PCR) (NEGATIVE) - Progress Progress: improved Air Movement: good Progress Note: Troponin is 0.167. Case discussed with Dr. De La Paz who advises transfer. Patient's electrical and instrument technician is at [facility]. Patient request transfer to [facility]. Patient's electrical and instrument technician is Dr. Sarahi Villalta. Aspirin administered. Nitroglycerin paste administered. Heparin drip initiated. 10/25/20 09:16 10/25/20 09:[address] Guardado ED physician at [facility] who accepts transfer. Plan of care discussed with patient. He agrees to transfer to [facility] for further evaluation and treatment. In light of bilateral leg swelling, elevated troponin, shortness of breath refractory to breathing barron atment patient was given low dose of Lasix. 10/25/20 10:04 10/25/20 12:42 Mr. Navarrete is currently on xeralto. He has not taken his xeralto today. Blood Culture(s) Obtained: Yes Antibiotics given: Yes Will see patient in: hospital (observation) Counseled pt/family regarding: lab results, diagnosis, rad results - Departure Departure Disposition: Transfer Clinical Impression: ACS (acute coronary syndrome), Elevated troponin, SOB (shortness of breath), CRI (chronic renal insufficiency), Cardiomegaly, COPD (chronic obstructive pulmonary disease), NSTEMI (non-ST elevated myocardial infarction), Pneumonia, Lung infiltrate, Proteinuria, Glucosuria, Leukocytosis Condition: Stable Critical Care Time: No Referrals: QASIM DE LA PAZ MD [Primary Care Provider] - Instructions: Chronic Obstructive Pulmonary Disease
[2020-10-25 08:01] LABS: ALBUMIN 3.8 g/dL (3.5-5.0); ANION GAP 15.8 MEQ/L (5-15); BILIRUBIN,TOTAL 0.5 mg/dL (0.2-1.3); Calcium 8.9 mg/dL (8.4-10.2); Creatinine 1 1.53 mg/dL (0.66-1.25); EST GLOMERULAR FILTRATION RATE 46.9 ML/MIN; MAGNESIUM 2.1 mg/dL (1.6-2.3); Potassium 4.3 mmol/L (3.5-5.1)
[2020-10-25] MEDS ORDERED: BABY ASPIRIN 81 MG CHEW PO ONE (08:20)
[2020-10-25] MEDS ORDERED: NITRO-BID 2% UD PACKETS TOP ONE (08:20)
[2020-10-25] MEDS ORDERED: BABY ASPIRIN 81 MG CHEW ONE (08:32)
[2020-10-25] MEDS ORDERED: NITRO-BID 2% UD PACKETS ONE (08:32)
[2020-10-25 09:16] LABS: INFLUENZA A NEGATIVE (NEGATIVE); INFLUENZA B NEGATIVE (NEGATIVE)
--- NOTE | 2020-10-25 09:17 | XRAY ---
Indication: Short of breath. Comparison: September 25, 2019. Portable chest demonstrates new bilateral mid to lower lung infiltrates without consolidation/large effusion. Remaining heart and lungs unremarkable again with scattered calcified granulomas and CABG surgery. Bony thorax intact.
[2020-10-25 09:23] LABS: ABSOLUTE NEUTROPHILS 9.78 (1.4-6.9); BAND 2 % (0.0-2.0); Lymphocytes 13 % (24-44); Monocyte 6 % (0.0-12.0); Neutrophils 76 % (36.-66.); Total Cells Counted 100
[2020-10-25 09:24] LABS: Eosinophil 3 % (0.00-3.0); Platelet Estimate NORMAL (NORMAL)
[2020-10-25] MEDS ORDERED: Lasix 20 MG/2 ML IV STA (09:25)
[2020-10-25] MEDS ORDERED: Lasix 40 MG/4 ML ONE (09:30)
[2020-10-25] MEDS ORDERED: VIBRAMYCIN 100 MG IV ONE (09:35)
[2020-10-25] MEDS ORDERED: Heparin 5000 UNITS/0.5 ML (HIGH RISK MED) ONE (09:35)
[2020-10-25] MEDS ORDERED: D5w 100ML Mini Bag 100 ML 100 ML IV ONE (09:36)
[2020-10-25] MEDS ORDERED: Heparin 25,000 units/D5W 250ML PREMIX 25,000 UNITS/250 ML BAG IV ONE (09:36)
[2020-10-25 09:53] LABS: Appearance SLIGHTLY CLOUDY (CLEAR); Bacteria RARE /HPF (NEGATIVE); Bilirubin NEGATIVE (NEGATIVE); Blood SMALL Ery/ul (0-5); Glucose >=500 mg/dL (NEGATIVE); Ketones NEGATIVE (NEGATIVE); Leukocyte Esterase NEGATIVE (NEGATIVE); Mucus SLIGHT /HPF (NEGATIVE); Nitrite NEGATIVE (NEGATIVE); Protein,Urine Dip >=500 (Negative); Specific Gravity 1.024 (1.005-1.025); Urobilinogen NEGATIVE mg/dL (0-1)
[2020-10-25] MEDS ORDERED: VIBRAMYCIN 100 MG*** 100 MG in Dextrose 5%/Water IV Soln. 100ML PLUS BAG 100 ML IV SCH (10:00)
[2020-10-25 12:29] VITALS: BP 148/65; PULSE 68
[2020-10-25] MEDS ORDERED: Heparin 5000 UNITS/0.5 ML (HIGH RISK MED) IV ONE (12:40)
[2020-10-25 12:42] VITALS: O2SAT 96
[2020-10-25] MEDS ORDERED: Heparin 25,000 units/D5W 250ML PREMIX 25,000 UNITS/250 ML BAG IV SCH (13:00)
== END 2020-10-25 13:17 | disposition short-term general hospital (02) ==
LOC: ED 06:34
DX: I24.9 Acute ischemic heart disease, unspecified (principal); R77.8 Other specified abnormalities of plasma proteins; R06.02 Shortness of breath; N18.9 Chronic kidney disease, unspecified; I51.7 Cardiomegaly; J44.9 Chronic obstructive pulmonary disease, unspecified; I21.4 Non-ST elevation (NSTEMI) myocardial infarction; J18.9 Pneumonia, unspecified organism; R91.8 Other nonspecific abnormal finding of lung field; R80.9 Proteinuria, unspecified; R81 Glycosuria; D72.829 Elevated white blood cell count, unspecified; Z79.899 Other long term (current) drug therapy; I50.9 Heart failure, unspecified; I25.10 Atherosclerotic heart disease of native coronary artery without angina pectoris; I10 Essential (primary) hypertension; I25.2 Old myocardial infarction
CPT/HCPCS: 36000; 36415; 71045; 80053; 80162; 81001; 83735; 83880; 84484; 85025; 87040; 87077; 87186; 87400; 93005; 93041; 94640; 94760; 96374; 96375; 99285; U0003; J1644; J1940; A9270-GY

== ENCOUNTER 2021-01-15 17:52 | Emergency (ER) | payer MEDICARE, BC ==
--- NOTE | 2021-01-15 19:56 | ERPHSYRPT ---
- History of Present Illness Time Seen by Provider: 01/15/21 18:10 Source: patient Exam Limitations: no limitations Patient Subjective Stated Complaint: Pt states "I have bright red blood coming out of my rectum. And my rectum barakat and hurts." Triage Nursing Assessment: Pt presented alert and oriented X3, skin pwd. Pt able to speak in clear full sentences. PT in no apparent respiratory distress. pt resting comfortably on the wheelchair Physician History: Patient is a 80-year-old male presents to our ED for rectal bleeding. Patient advises that he is on Xarelto for A. fib. Patient's rectal bleeding started last night. Rectal bleeding continued on into today. Patient complaining of pain around his rectum. No trauma. No fever. No abdominal pain. No nausea or vomiting. Symptoms are mild to moderate in intensity. No specific worsening or improving factors. Patient denies associated chest pain. No shortness of breath. Patient voices no other complaints concerns at this time. Timing/Duration: yesterday Severity: mild Modifying Factors: Improves With: nothing Associated Symptoms: denies symptoms Allergies/Adverse Reactions: nadolol [From Corgard] Allergy (Mild, Verified 10/25/20 06:36) hydromorphone HCl [From Dilaudid] Allergy (Verified 10/25/20 06:36) metoclopramide [From Reglan] Adverse Reaction (Verified 10/25/20 06:36) Home Medications: Glipizide 10 mg [Glucotrol 10 MG] 10 mg PO BID 08/15/15 [History] Hydralazine HCl 25 mg PO BID 08/15/15 [History] Levothyroxine Sodium 75 Mcg [Synthroid 75 Mcg] 75 mcg PO DAILY 08/15/15 [History] Rivaroxaban [Xarelto] 20 mg PO HS 08/15/15 [History] Sennosides/Docusate Sodium [Senna-Docusate Sodium Tablet] 8.5 mg PO BID 08/15/15 [History] Tamsulosin HCl [Flomax] 0.4 mg PO HS 08/15/15 [History] Atorvastatin Calcium [Lipitor] 20 mg PO HS 07/02/18 [History] Carvedilol [Coreg] 25 mg PO HS 07/02/18 [History] Insulin Glargine [Lantus Insulin] 60 unit SQ BID 07/02/18 [History] carvediloL [Carvedilol] 25 ea PO DAILY 09/25/19 [History] Amlodipine Besylate 10 mg PO DAILY 10/25/20 [History] Cimetidine [Tagamet] 800 mg PO HS 10/25/20 [History] Dapagliflozin Propanediol [Farxiga] 10 mg PO DAILY 10/25/20 [History] Dutasteride 0.5 mg PO DAILY 10/25/20 [History] Evolocumab [Repatha Syringe] 140 mg SQ UD 10/25/20 [History] Famotidine [Pepcid] 40 mg PO BID 10/25/20 [History] PANTOPRAZOLE 40 mg Tablet [Protonix 40MG Tablet] 40 mg PO BID 10/25/20 [History] Sucralfate 1 gm PO BID 10/25/20 [History] Hx Tetanus, Diphtheria Vaccination/Date Given: No Hx Influenza Vaccination/Date Given: Yes Hx Pneumococcal Vaccination/Date Given: Yes Immunizations Up to Date: Yes Travel Risk - International Travel Have you traveled outside of the country in past 3 weeks: No - Coronavirus Screening Are you exhibiting any of the following symptoms?: No Close contact with a COVID-19 positive Pt in past 14-21 Days: No - Vaccine Status Have you recieved a Covid-19 vaccination: Yes Room Attendant: Moderna - Vaccination Dates Date of 2cond Vaccination (if applicable): 08/2020 - Review of Systems Constitutional: No Symptoms, No Fever, No Chills Eyes: No Symptoms Ears, Nose, & Throat: No Symptoms Respiratory: No Symptoms, No Cough, No Dyspnea Cardiac: No Symptoms, No Chest Pain, No Edema, No Syncope Abdominal/Gastrointestinal: No Symptoms, No Abdominal Pain, No Nausea, No Vomiting, No Diarrhea Genitourinary Symptoms: No Symptoms, No Dysuria Musculoskeletal: No Symptoms, No Back Pain, No Neck Pain Skin: No Symptoms, No Rash Neurological: No Symptoms, No Dizziness, No Focal Weakness, No Sensory Changes Psychological: No Symptoms Endocrine: No Symptoms Hematologic/Lymphatic: No Symptoms Immunological/Allergic: No Symptoms All Other Systems: Reviewed and Negative - Past Medical History Pertinent Past Medical History: Yes Neurological History: No Pertinent History ENT History: No Pertinent History, Cataracts Cardiac History: Arrhythmia, Congestive Heart Failure, Coronary Artery Disease, Hypertension, Myocardial Infarction ([place]) Respiratory History: CHF, COPD Endocrine Medical History: Diabetes Type II Musculoskeletal History: Arthritis GI Medical History: No Pertinent History History: No Pertinent History Psycho-Social History: No Pertinent History Male Reproductive Disorders: Prostate Problems Other Medical History: pt states history of renal failure - Past Surgical History Past Surgical History: Yes Neuro Surgical History: No Pertinent History Cardiac: CABG Respiratory: No Pertinent History Gastrointestinal: Appendectomy, Cholecystectomy Genitourinary: No Pertinent History Musculoskeletal: Orthopedic Surgery Male Surgical History: No Pertinent History Other Surgical History: stents in past as stated per pt, CABG - Social History Smoking Status: Former smoker Exposure to second hand smoke: No Drug Use: none Patient Lives Alone: No - Nursing Vital Signs Nursing Vital Signs: Initial Vital Signs Temperature 97.6 F 01/15/21 18:06 Pulse Rate 64 01/15/21 18:06 Respiratory Rate 22 01/15/21 18:06 Blood Pressure 210/95 01/15/21 18:06 O2 Sat by Pulse Oximetry 96 01/15/21 18:06 Pain Scale Pain Intensity 5 - Physical Exam General Appearance: no apparent distress, alert Eye Exam: PERRL/EOMI, eyes nml inspection Ears, Nose, Throat Exam: normal ENT inspection, TMs normal, pharynx normal, moist mucous membranes Neck Exam: normal inspection, non-tender, supple, full range of motion Respiratory Exam: normal breath sounds, lungs clear, airway intact, No respiratory distress Cardiovascular Exam: regular rate/rhythm, normal heart sounds, normal peripheral pulses Gastrointestinal/Abdomen Exam: soft, normal bowel sounds, No tenderness, No mass Rectal Exam: hemorrhoids, other (External hemorrhoids observed. No thrombosed hemorrhoids.) Back Exam: normal inspection, normal range of motion, No CVA tenderness, No vertebral tenderness Extremity Exam: normal inspection, normal range of motion, pelvis stable Neurologic Exam: alert, oriented x 3, cooperative, normal mood/affect, sensation nml, No motor deficits Skin Exam: normal color, warm, dry, No rash Lymphatic Exam: No adenopathy SpO2 Interpretation: normal SpO2: 96 O2 Delivery: Room Air - Course Nursing assessment & vital signs reviewed: Yes Ordered Tests: Active Orders 24 hr Category Date Time Status Commercial Driver'S License Driver STAT Care 01/15/21 19:51 Active EKG-ER Only STAT Care 01/15/21 19:50 Active IV Insertion STAT Care 01/15/21 19:50 Active Pulse Oximetry (ED) STAT Care 01/15/21 19:50 Active CBC W DIFF Stat Lab 01/15/21 20:40 Completed CMP Stat Lab 01/15/21 20:40 Completed Manual Differential NC Stat Lab 01/15/21 20:40 Completed PROTIME WITH INR Stat Lab 01/15/21 20:40 Received PTT Stat Lab 01/15/21 20:40 Received TROPONIN Q3H Lab 01/15/21 20:40 Received TROPONIN Q3H Lab 01/15/21 23:00 Ordered TROPONIN Q3H Lab 01/16/21 02:00 Ordered TROPONIN Q3H Lab 01/16/21 05:00 Ordered TROPONIN Q3H Lab 01/16/21 08:00 Ordered Lab/Rad Data: Laboratory Result Diagrams 01/15/21 20:40 01/15/21 20:40 Laboratory Results 01/15/21 01/15/21 Range/Units 20:40 20:40 WBC 10.5 (4.0-10.5) K/mm3 RBC 4.81 (4.1-5.6) M/mm3 Hgb 13.7 (12.5-18.0) gm/dl Hct 43.7 (42-50) % MCV 90.9 (78-100) fl MCH 28.5 (26-32) pg MCHC 31.4 L (32-36) g/dl RDW 16.4 H (11.5-14.0) % Plt Count 248 (150-450) K/mm3 MPV 11.4 H (7.5-11.0) fl Sodium 138 (137-145) mmol/L Potassium 4.4 (3.5-5.1) mmol/L Chloride 104 (98-107) mmol/L Carbon Dioxide 26 (22-30) mmol/L Anion Gap 11.4 (5-15) MEQ/L BUN 32 H (9-20) mg/dL Creatinine 1.57 H (0.66-1.25) mg/dL Estimated GFR 45.5 ML/MIN Glucose 121 H (74-106) mg/dL Calcium 8.7 (8.4-10.2) mg/dL Total Bilirubin 0.30 (0.2-1.3) mg/dL AST 19 (17-59) U/L ALT 15 (0-50) U/L Alkaline Phosphatase 77 (38-126) U/L Serum Total Protein 6.4 (6.3-8.2) g/dL Albumin 3.5 (3.5-5.0) g/dL - Progress Progress: improved Progress Note: Bleeding external hemorrhoids on blood thinners. Laboratory work-up essentially unremarkable. Patient has chronic renal sufficiency. This is reflected on today's labs. No active rectal bleeding during our exam today. Patient advised to start stool softeners. Minimize straining during bowel movements. Patient to try sitz bath which may be purchased at [employer] Patient is on Xarelto. Patient to call his financial institution vice president in the morning to find out if it would be reasonable to stop the Xarelto temporarily until the rectal bleeding resolves. Patient agrees to follow-up with his primary care doctor within 48 hours for reevaluation. Oral analgesics as needed as necessary. We spoke to patient's and provided her with detailed instructions as well. Patient voices no other complaints at this time. He is comfortable. He states is ready for discharge. Portions of this note were created with voice recognition technology. There may be grammatical, spelling, punctuation or sound alike errors 01/15/21 20:08 01/15/21 21:27 Counseled pt/family regarding: lab results, diagnosis, need for follow-up - Departure Departure Disposition: Home Clinical Impression: Bleeding external hemorrhoids Condition: Stable Critical Care Time: No Referrals: QASIM DE LA PAZ MD [Primary Care Provider] - Additional Instructions: Discharge/Care Plan VARINDER MONTEMAYOR was seen on 01/15/21 in the Emergency Room. The patient was counseled regarding Diagnosis,Lab results, Imaging studies, need for follow up and when to return to the Emergency Room. Prescriptions given: Discharge Note I have spoken with the patient and/or caregivers. I have explained the patient's condition, diagnosis and treatment plan based on the information available to me at this time. I have answered the patient's and/or caregiver's questions and addressed any concerns. The patient and/or caregivers have as good understanding of the patient's diagnosis, condition and treatment plan as can be expected at this point. The vital signs have been stable. The patient's condition is stable and appropriate for discharge from the emergency department. The patient will pursue further outpatient evaluation with the primary care physician or other designated or consulting physician as outlined in the discharge instructions. The patient and/or caregivers are agreeable to this plan of care and follow-up instructions have been explained in detail. The patient and/or caregivers have received these instruction. The patient/and or caregivers are aware that any significant change in condition or worsening of symptoms should prompt an immediate return to this or the closest emergency department or call 911.
[2021-01-15 21:05] LABS: Hematocrit 43.7 % (42-50); Hemoglobin 13.7 gm/dl (12.5-18.0); Mean Cell Volume 90.9 fl (78-100); Mean Corpuscular Hemoglobin 28.5 pg (26-32); Mean Corpuscular Hgb Concent. 31.4 g/dl (32-36); Mean Platelet Volume 11.4 fl (7.5-11.0); Platelet Count 248 K/mm3 (150-450); Red Blood Count 4.81 M/mm3 (4.1-5.6); Red Cell Distribution Width 16.4 % (11.5-14.0); White Blood Count 10.5 K/mm3 (4.0-10.5)
[2021-01-15 21:16] LABS: ALBUMIN 3.5 g/dL (3.5-5.0); ANION GAP 11.4 MEQ/L (5-15); BILIRUBIN,TOTAL 0.3 mg/dL (0.2-1.3); Calcium 8.7 mg/dL (8.4-10.2); Creatinine 1 1.57 mg/dL (0.66-1.25); EST GLOMERULAR FILTRATION RATE 45.5 ML/MIN; Potassium 4.4 mmol/L (3.5-5.1); Total Protein 6.4 g/dL (6.3-8.2)
[2021-01-15 21:20] LABS: INR 1.03 (0.8-3.0); PROTIME 12.2 SECONDS (9.4-12.5)
[2021-01-15 21:23] LABS: PTT 32.9 SECONDS (25.1-36.5)
[2021-01-15 21:33] VITALS: BP 181/78; PULSE 78; O2SAT 97
[2021-01-16 02:13] LABS: Eosinophil 9 % (0.00-3.0); Lymphocytes 15 % (24-44); Monocyte 2 % (0.0-12.0); Neutrophils 74 % (36.-66.); Total Cells Counted 100
[2021-01-16 02:14] LABS: Platelet Estimate NORMAL (NORMAL)
== END 2021-01-15 21:43 | disposition home or self-care (01) ==
LOC: ED 17:52
DX: K64.4 Residual hemorrhoidal skin tags (principal); Z79.899 Other long term (current) drug therapy; I50.9 Heart failure, unspecified; I25.10 Atherosclerotic heart disease of native coronary artery without angina pectoris; I10 Essential (primary) hypertension; E11.9 Type 2 diabetes mellitus without complications
CPT/HCPCS: 36415; 80053; 84484; 85025; 85610; 85730; 93005; 93041; 94760; 99284

== ENCOUNTER 2023-11-28 10:15 | Emergency (ER) | payer MEDICARE, BC ==
--- NOTE | 2023-11-28 10:25 | ERPHSYRPT ---
- History of Present Illness Time Seen by Provider: 11/28/23 10:24 Source: patient, EMS, old records Exam Limitations: clinical condition Physician History: This is an 83-year-old white male patient of Dr. Frye who was brought to the emergency department by the paramedics after a fall that occurred at home. He appears to have pain in the right hip and the right lower extremity is externally rotated and shortened. Patient is on hospice. The reason is unknown at this time. The patient is a poor historian and unable to answer questions. He is intermittently mumbling and moaning. Patient does have a history of coronary artery disease having had cardiac stents in CABG performed in the past. His metal bonding helper is Joseph Villalta. Patient has a history of hypertension and is on Xarelto secondary to A-fib/flutter. He has a history of gastroesophageal reflux disease, hypothyroidism, diabetes, hyperlipidemia, CHF, chronic renal disease, COPD. The family and hospice nurse are not here at this time to obtain additional, independent history. They are on their way. Occurred: just prior to arrival Reason for Fall: unknown Injuries/Pain Location: lower extremity (Right hip) Loss of Consciousness: unsure Quality: aching Severity of Pain-Max: moderate Severity of Pain-Current: moderate Modifying Factors: Improves With: movement Associated Symptoms (Fall): confusion (Not sure if chronic or acute exacerbation), extremity injury (Right hip) Allergies/Adverse Reactions: nadolol [From Corgard] Allergy (Mild, Verified 11/28/23 10:32) hydromorphone HCl [From Dilaudid] Allergy (Verified 11/28/23 10:32) metoclopramide [From Reglan] Adverse Reaction (Verified 11/28/23 10:32) Home Medications: Glipizide 10 mg [Glucotrol 10 MG] 10 mg PO BID 08/15/15 [History] Hydralazine HCl 25 mg PO BID 08/15/15 [History] Levothyroxine Sodium 75 Mcg [Synthroid 75 Mcg] 75 mcg PO DAILY 08/15/15 [History] Rivaroxaban [Xarelto] 20 mg PO HS 08/15/15 [History] Sennosides/Docusate Sodium [Senna-Docusate Sodium Tablet] 8.5 mg PO BID 08/15/15 [History] Tamsulosin HCl [Flomax] 0.4 mg PO HS 08/15/15 [History] Atorvastatin Calcium [Lipitor] 20 mg PO HS 07/02/18 [History] Insulin Glargine [Lantus Insulin] 60 unit SQ BID 07/02/18 [History] carvediloL [Coreg] 25 mg PO HS 07/02/18 [History] carvediloL [Carvedilol] 25 ea PO DAILY 09/25/19 [History] Amlodipine Besylate 10 mg PO DAILY 10/25/20 [History] Cimetidine [Tagamet] 800 mg PO HS 10/25/20 [History] Dapagliflozin Propanediol [Farxiga] 10 mg PO DAILY 10/25/20 [History] Dutasteride 0.5 mg PO DAILY 10/25/20 [History] Evolocumab [Repatha Syringe] 140 mg SQ UD 10/25/20 [History] Famotidine [Pepcid] 40 mg PO BID 10/25/20 [History] PANTOPRAZOLE 40 mg Tablet [Protonix 40MG Tablet] 40 mg PO BID 10/25/20 [History] Sucralfate 1 gm PO BID 10/25/20 [History] Hx Tetanus, Diphtheria Vaccination/Date Given: No Hx Influenza Vaccination/Date Given: Yes Hx Pneumococcal Vaccination/Date Given: Yes Travel Risk - International Travel Have you traveled outside of the country in past 3 weeks: No - Emerging Infectious Disease Are you exhibiting symptoms associated with any current EIDs: No - Review of Systems Constitutional: No Symptoms Eyes: No Symptoms Ears, Nose, & Throat: No Symptoms Respiratory: No Symptoms Cardiac: No Symptoms Abdominal/Gastrointestinal: No Symptoms Genitourinary Symptoms: No Symptoms Musculoskeletal: Fall, Injury (Right hip) Skin: No Symptoms Neurological: No Symptoms Psychological: No Symptoms Endocrine: No Symptoms Hematologic/Lymphatic: No Symptoms Immunological/Allergic: No Symptoms All Other Systems: Reviewed and Negative - Past Medical History Pertinent Past Medical History: Yes Neurological History: No Pertinent History ENT History: No Pertinent History, Cataracts Cardiac History: Arrhythmia, Congestive Heart Failure, Coronary Artery Disease, Hypertension, Myocardial Infarction ([place]) Respiratory History: CHF, COPD Endocrine Medical History: Diabetes Type II Musculoskeletal History: Arthritis GI Medical History: No Pertinent History History: No Pertinent History Psycho-Social History: No Pertinent History Male Reproductive Disorders: Prostate Problems Other Medical History: pt states history of renal failure - Past Surgical History Past Surgical History: Yes Neuro Surgical History: No Pertinent History Cardiac: CABG Respiratory: No Pertinent History Gastrointestinal: Appendectomy, Cholecystectomy Genitourinary: No Pertinent History Musculoskeletal: Orthopedic Surgery Male Surgical History: No Pertinent History Other Surgical History: stents in past as stated per pt, CABG - Social History Smoking Status: Former smoker Exposure to second hand smoke: No Drug Use: none Patient Lives Alone: No - Nursing Vital Signs Nursing Vital Signs: Initial Vital Signs Temperature 96.6 F 11/28/23 10:34 Pulse Rate 69 11/28/23 10:34 Respiratory Rate 20 11/28/23 10:34 Blood Pressure 127/56 11/28/23 10:34 O2 Sat by Pulse Oximetry 96 11/28/23 10:34 Pain Scale Pain Intensity 5 - [place] Coma Score Best Eye Response ([place]): (3) open to voice Best Verbal Response ([place]): (2) incomprehsible sounds Best Motor Response ([place]): (5) localizes to pain [place] Total: 10 - Physical Exam General Appearance: mild distress (Moderate), obese Head Injury: no evidence of injury Eye Exam: PERRL/EOMI, eyes nml inspection ENT Exam: airway nml, nml ext.inspection, No evidence of ENT injury Neck Exam: supple, trachea midline, full range of motion, normal alignment, normal inspection Respiratory/Chest Exam: normal breath sounds, No chest tenderness, No respiratory distress, No ecchymosis, No crepitus Cardiovascular Exam: normal heart sounds, regular rate/rhythm Gastrointestinal Exam: soft, normal bowel sounds, No tenderness Genitalia Exam: normal genital exam Rectal Exam: not done Back Exam: normal inspection, No vertebral tenderness Extremity Exam: evidence of injury (Right hip with external rotation and shortened right lower extremity), hip tenderness (Right hip), tenderness (Right hip) Neurologic Exam: disoriented, confusion Skin Exam: normal color, warm, dry SpO2 Interpretation: normal O2 Delivery: Room Air - Course Nursing assessment & vital signs reviewed: Yes Ordered Tests: Active Orders 24 hr Category Date Time Status Catheter-[place] Menjivar STAT Care 11/28/23 10:54 Active EKG-ER Only STAT Care 11/28/23 10:54 Active IV Insertion STAT Care 11/28/23 10:54 Active CHEST 1 VIEW (PORTABLE) Stat Exams 11/28/23 10:53 Completed FEMUR Stat Exams 11/28/23 10:53 Completed HEAD WITHOUT CONTRAST [CT] Stat Exams 11/28/23 11:03 Completed HIP UNI (2V) INCL PEL IF DONE Stat Exams 11/28/23 10:54 Completed LUMBAR LIMITED (2 OR 3 VIEWS) Stat Exams 11/28/23 10:54 Completed CBC W DIFF Stat Lab 11/28/23 10:30 Completed CMP Stat Lab 11/28/23 10:30 Completed CULTURE,URINE Stat Lab 11/28/23 10:55 Ordered UA W/RFX UR CULTURE Stat Lab 11/28/23 10:55 Ordered Medication Summary Discontinued Medications Generic Name Dose Route Start Last Admin Trade Name Freq PRN Reason Stop Dose Admin Furosemide 20 mg 11/28/23 12:48 11/28/23 12:53 Furosemide 20 Mg/Vial IV 11/28/23 12:49 20 mg STAT ONE Administration Furosemide Confirm 11/28/23 12:51 Furosemide 20 Mg/Vial Administered 11/28/23 12:52 Dose 20 mg .ROUTE .STK-MED ONE Lab/Rad Data: Laboratory Result Diagrams 11/28/23 10:30 11/28/23 10:30 Laboratory Results 11/28/23 11/28/23 Range/Units 10:30 10:30 WBC 8.1 (4.23-9.07) x10^3/uL RBC 5.75 (4.63-6.08) x10^6/uL Hgb 15.6 (13.7-17.5) g/dL Hct 49.5 (40.1-51.0) % MCV 86.1 (79.0-92.2) fL MCH 27.1 (25.7-32.2) pg MCHC 31.5 L (32.3-36.5) g/dL RDW 19.1 H (11.6-14.4) % Plt Count 197 (163-337) x10^3/uL MPV 12.6 H (9.4-12.4) fL Gran % 71.5 H (34.0-67.9) % Immature Gran % (Auto) 2.9 H (0.001-0.429) % Nucleat RBC Rel Count 0.0 (0.00-0.2) % Eos # (Auto) 0.19 (0.04-0.54) x10^3/uL Immature Gran # (Auto) 0.24 H (0.001-0.031) x10^3u/L Absolute Lymphs (auto) 0.99 L (1.32-3.57) x10^3/uL Absolute Monos (auto) 0.82 (0.30-0.82) x10^3/uL Absolute Nucleated RBC 0.00 (0.00-0.012) x10^3u/L Lymphocytes % 12.2 L (21.8-53.1) % Monocytes % 10.1 (5.3-12.2) % Eosinophils % 2.3 (0.8-7.0) % Basophils % 1.0 (0.2-1.2) % Absolute Granulocytes 5.82 H (1.78-5.38) x10^3/uL Basophils # 0.08 (0.01-0.08) x10^3/uL Sodium 138 (135-145) mmol/L Potassium 4.6 (3.5-5.1) mmol/L Chloride 100 (98-107) mmol/L Carbon Dioxide 29 (22-30) mmol/L Anion Gap 13.1 (5-15) MEQ/L BUN 62 H (9-20) mg/dL Creatinine 1.82 H (0.66-1.25) mg/dL Estimated GFR 36.6 ML/MIN Glucose 139 H (74-106) mg/dL Calcium 9.1 (8.4-10.2) mg/dL Total Bilirubin 1.80 H (0.2-1.3) mg/dL AST 27 (17-59) U/L ALT 24 (0-50) U/L Alkaline Phosphatase 80 (38-126) U/L Serum Total Protein 6.5 (6.3-8.2) g/dL Albumin 3.2 L (3.5-5.0) g/dL - Progress Progress Note: 11/28/23 11:09 My medical decision making and the assignment of moderate to high complexity to this patient's medical issue today is based on review of the patient's past medical history, review of patient's medication list, review of patient drug allergy list, history present illness and physical findings on examination. The workup in this patient includes placement of intravenous line, CT scan of the head, x-ray of the right hip and pelvis, x-ray of the right femur, x-ray of the lumbar spine, CBC, CMP, PT/INR, urinalysis. Will place a Menjivar catheter in this patient. Differential diagnosis includes but not limited to acute intracranial abnormality, right hip fracture, right femur fracture, lumbar spine fracture 11/28/23 12:18 I spoke with the patient's spouse. She provided independent, additional history of this patient although she could not tell me why this patient is in hospice. She did state that if this patient requires surgical intervention, she prefers the patient be transferred to [place] where the patient's metal bonding helper, Dr. Sarahi Villalta works. 11/28/23 13:07 I interpreted the patient's laboratory data results. Based on the laboratory data results, the patient does not have any acute or emergent medical issue. All of the radiographic studies performed were interpreted by the radiologist and I reviewed the impression. The following radiographic study impressions were reviewed by me: CT scan of the head without contrast shows a nonacute senile brain. Lumbar spine x-ray shows osteopenia with progressively worsening, moderate multilevel thoracolumbar spondylosis. There are no acute fractures or subluxation Chest x-ray shows new cardiomegaly with changes consistent with congestive heart failure. Superimposed pneumonia not excluded. Right hip and pelvis x-ray shows no acute fracture or dislocation. X-ray of right femur shows no acute fracture or dislocation. 11/28/23 13:10 I discussed the workup results including the laboratory workup, the finding of congestive heart failure and the results of the x-ray studies with the patient's spouse. She does not want any further evaluation done. She was primarily concerned about the right hip being fractured. We will discharge the patient to home. Counseled pt/family regarding: lab results, diagnosis, rad results Medical Desision Making - Independent Historian Additional History obtained from: Spouse - Diagnostic Testing Diagnostic test were ordered, analyzed, and reviewed by me: Yes Radiological Interpretation: Reviewed by me, Teleradiologist Report - Risk of complications Low Risk: Low risk of morbidity from additional dx testing or treatment - Departure Departure Disposition: Home Clinical Impression: Fall with no significant injury, CHF (congestive heart failure) Condition: Stable Critical Care Time: No Referrals: BRAIN,QASIM, MD [Primary Care Provider] - Follow up/PCP as directed Instructions: Heart Failure Additional Instructions: Take take your medications as prescribed. Call your primary care provider chelsea jameson, 11/28/2023, to make arranges for follow-up appointment for further evaluation management.
[2023-11-28 10:43] VITALS: RESP 20; TEMP 96.6
[2023-11-28 11:04] LABS: Absolute Neutrophil Ct (ANC) 5.82 x10^3/uL (1.78-5.38); Basophil (Absolute #) 0.08 x10^3/uL (0.01-0.08); Eosinophil % 2.3 % (0.8-7.0); Eosinophil (Absolute #) 0.19 x10^3/uL (0.04-0.54); Hematocrit 49.5 % (40.1-51.0); Hemoglobin 15.6 g/dL (13.7-17.5); IMMATURE GRAN # 0.24 x10^3u/L (0.001-0.031); IMMATURE GRAN % 2.9 % (0.001-0.429); Lymphocyte (Absolute #) 0.99 x10^3/uL (1.32-3.57); Lymphocytes % 12.2 % (21.8-53.1); Mean Cell Volume 86.1 fL (79.0-92.2); Mean Corpuscular Hemoglobin 27.1 pg (25.7-32.2); Mean Corpuscular Hgb Concent. 31.5 g/dL (32.3-36.5); Mean Platelet Volume 12.6 fL (9.4-12.4); Monocyte (Absolute #) 0.82 x10^3/uL (0.30-0.82); Monocytes % 10.1 % (5.3-12.2); Neutrophil % 71.5 % (34.0-67.9); Platelet Count 197 x10^3/uL (163-337); Red Blood Count 5.75 x10^6/uL (4.63-6.08); Red Cell Distribution Width 19.1 % (11.6-14.4); White Blood Count 8.1 x10^3/uL (4.23-9.07)
[2023-11-28 11:25] LABS: ALBUMIN 3.2 g/dL (3.5-5.0); ANION GAP 13.1 MEQ/L (5-15); BILIRUBIN,TOTAL 1.8 mg/dL (0.2-1.3); Calcium 9.1 mg/dL (8.4-10.2); Creatinine 1 1.82 mg/dL (0.66-1.25); EST GLOMERULAR FILTRATION RATE 36.6 ML/MIN; Potassium 4.6 mmol/L (3.5-5.1); Total Protein 6.5 g/dL (6.3-8.2)
--- NOTE | 2023-11-28 12:29 | XRAY ---
Indication: Status post fall. Multiple contiguous axial images obtained through the head without contrast. Comparison: None Age-appropriate global atrophy and mild periventricular degenerative micro-ischemia bilaterally. No acute intracranial hemorrhage, abnormal extra-axial fluid collection, or mass effect. Fourth ventricle is midline without hydrocephalus. Bony calvarium intact. Visualized paranasal sinuses and mastoid air cells are clear. Impression: Nonacute senile brain.
--- NOTE | 2023-11-28 12:31 | XRAY ---
Indication: Cough. Status post fall. Comparison: October 02, 2021 Portable chest demonstrates new cardiomegaly with moderate left base infiltrate/atelectasis/effusion favoring cardiac decompensation/CHF. Superimposed pneumonia not completely excluded. Again incidental bilateral calcified granulomas and CABG. Bony thorax intact again with osteopenia and degenerative changes.
--- NOTE | 2023-11-28 12:33 | XRAY ---
Indication: Status post fall. Comparison: None 2 view right femur demonstrate osteopenia, mild knee degenerative arthropathy, extensive scattered vascular calcifications, and vascular clips right groin/right knee. No other bony, articular, or soft tissue abnormalities.
--- NOTE | 2023-11-28 12:33 | XRAY ---
Indication: Status post fall. Comparison: March 24, 2006 AP/lateral lumbar spine demonstrates new aortobiiliac stent grafts and cholecystectomy clips. Again osteopenia with progressive worsening moderate multilevel thoracolumbar degenerative spondylosis. No other bony, articular, or soft tissue abnormalities.
--- NOTE | 2023-11-28 12:37 | XRAY ---
Indication: Status post fall. Comparison: None AP pelvis and 2 view right hip demonstrates osteopenia, extensive scattered vascular calcifications with incompletely visualized biiliac stents, multiple vascular clips, and bilateral gluteal calcified injection granulomas. No other bony, articular, or soft tissue abnormalities.
[2023-11-28] MEDS ORDERED: Lasix 20 MG/2 ML ONE (12:51)
[2023-11-28] MEDS: Lasix 20 MG/2 ML IV ONE (12:53)
[2023-11-28 16:52] LABS: Appearance Clear (Clear); Bilirubin Small (Negative); Blood Negative (Negative); Glucose, Urine Negative (Negative); Ketones Negative (Negative); Leukocyte Esterase Trace (Negative); Nitrite Negative (Negative); Protein,Urine Dip 100 (Negative)
[2023-11-28 16:53] LABS: ADD URINE CULTURE? ORDERED SEPARATELY (NO); Bacteria Few /HPF (None Seen); Epithelial Cells Few /HPF (None Seen); RBC 0-2 /HPF (0-5)
[2023-11-28 18:04] VITALS: BP 119/86; PULSE 66; O2SAT 93
== END 2023-11-28 19:10 | disposition home or self-care (01) ==
LOC: ED 10:15
DX: Z04.3 Encounter for examination and observation following other accident (principal); I13.0 Hypertensive heart and chronic kidney disease with heart failure and stage 1 through stage 4 chronic kidney disease, or unspecified chronic kidney disease; I50.9 Heart failure, unspecified; M25.551 Pain in right hip; E11.22 Type 2 diabetes mellitus with diabetic chronic kidney disease; N18.9 Chronic kidney disease, unspecified; E78.5 Hyperlipidemia, unspecified; Z79.84 Long term (current) use of oral hypoglycemic drugs; Z79.01 Long term (current) use of anticoagulants; Z79.4 Long term (current) use of insulin; Z79.899 Other long term (current) drug therapy
CPT/HCPCS: 36000; 36415; 51702; 70450; 71045; 72100; 73502; 73552; 80053; 81001; 85025; 87086; 93005; 96374; 99285; J1940